=== PATIENT | female | born 1960 | race Caucasian/White ===

== ENCOUNTER 2025-04-12 10:46 | Outpatient (REF) | payer OTHER, MEDICAID, SELFPAY ==
--- NOTE | ~2025-04-12 | XR_ITS ---
EXAMINATION: XR CERVICAL SPINE CLINICAL INFORMATION: G95.9 - Disease of spinal cord, unspecified COMPARISON: None available. TECHNIQUE: AP, and lateral: Flexion, neutral, and extension view x-rays of the cervical spine. FINDINGS: Intraplate screws fuse C3-C4-C5. There is mature interbody body bone graft bridging between the vertebral bodies. There is prosthetic disc at C6-7 with mild subsidence into the C6 and minimal anterior C7. There is a large anterior osteophyte at C5-6. With flexion and extension there is limited mobility and no evidence of instability. XR/XR cervical spine 4V IMPRESSION: ACDF C3-C5. Prosthetic disc C5-6. No sign of instability. Electronically signed by: Josiah Rosen MD 04/12/2025 01:01 PM EDT
== END 2025-04-12 10:47 | disposition home or self-care (01) ==
LOC: HO.HOSX 10:46
PROVIDERS: Visit Provider Physician Assistant
DX: G95.9 Disease of spinal cord, unspecified (principal); M54.2 Cervicalgia; R20.2 Paresthesia of skin; R20.0 Anesthesia of skin; Z96.698 Presence of other orthopedic joint implants
CPT/HCPCS: 72050

== ENCOUNTER 2025-04-12 10:46 | Outpatient (AMB) | payer OTHER, MEDICAID, SELFPAY ==
--- NOTE | 2025-04-12 11:00 | A.SPINEOV_ITS ---
Intake Visit Reasons: Neck pain, numbness and tingling Intake Note: Ms. Cordova is here today c/o neck pain, numbness and tingling. Graduate Assistant Athletic Trainer Required: No Assessment & Plan Assessment & Plan (1) Cervical myelopathy: Code(s): G95.9 - Disease of spinal cord, unspecified Category: Medical Plan Dear ULI Rosales, Thank you for referring Paula to our office today. She is a pleasant 64-year-old female who comes in today for evaluation of worsening neck and arm pain. She reports a pertinent past medical history of 2 spine surgeries (C3-5 ACDF, C6-7 artificial disc) completed by Dr. Jean. He has since retired, therefore the patient is seeking to establish care with our clinic. She reports that she recovered very well from both of her surgeries, and had complete pain relief within a few months. After her last surgery done in 2018 (artificial disc) she states that she was pain-free until about a year ago. Without any known inciting incident she began experiencing low-grade neck pain and shooting pains into her bilateral upper extremities, right worse than left. This has gradually worsened as the year has progressed, and is now significantly affecting her daily life. She is unable to sleep at night for more than about 4 hours in total due to the pain. She wakes up almost hourly in pain overnight. She feels that her hands are weak and not able to articulate like they could in the past. She is no longer able to open jars, or button buttons. She reports she occasionally has dropped things around her home. She feels her handwriting has declined in is much more difficult for her to write now. When describing the shooting pain down her upper extremities she states that it starts in her posterior neck and shoots down the volar surface of her forearm into the index finger on both sides. This is much worse on the right-hand side. She also reports intermittent numbness/tingling of the bilateral hands. She denies any issues with balance, and also denies any issues with bowel/bladder control. She has been attempting to utilize [id number]-[id number] ibuprofen alongside prescribed gabapentin, diclofenac tablets, and cyclobenzaprine to help mitigate her symptoms. In addition to this, she recently completed a course of physical therapy in January. PMH: Hypothyroid is on, hyperlipidemia, iron deficiency, major depression, insomnia, migraine headaches, allergic rhinitis, asthma, GERD, eczema, rheumatoid arthritis, history of total hysterectomy in December 2024, rheumatoid a rthritis and fibromylagia followed by Rheumatology Dr. Leonardo. Hx C3-5 ACDF and C6-7 Mobi-C artifical disc. Social hx: The patient does not smoke, denies substance use. Medications: Albuterol, Fioricet, cortifoam, cyclobenzaprine, diclofenac sodium tablets, estrogen patches, VITAMIN-D, ESCITALOPRAM, OMEPRAZOLE, FERROUS SULFATE, FLOVENT, FLUTICASONE, GABAPENTIN, IBUPROFEN, LEVOTHYROXINE, LORATADINE, ONDANSETRON, RESTASIS, TRAZODONE, TRIAMCINOLONE CREAM, TRULANCE. Vitamin C. Allergies: Biotin, Morphine. Physical exam: The patient has about 4/5 strength in her bilateral upper extremities. Her hand oil rig roughneck is notably weaker than other muscle groups when testing her upper extremities. Her right hand side is slightly weaker than the left overall, most notable with biceps/triceps testing. She has full 5/5 strength in her bilateral lower extremities, including proximal muscle groups. She ambulates well without an antalgic or spastic gait. She has no significant sensational deficits to light touch on examination. Her reflexes are 2+ intact diffusely. (+) Lhermitte's, (-) Barth's, (-) Babinski's, (-) clonus, (-) bilateral straight leg raise, (-) Tinel's at wrist bilaterally. Imaging review: MRI of the cervical spine completed at [facility] shows evidence of C3-5 ACDF, and C6-7 artificial disc. There is no fusion construct at C5-6. At C6-7 there is moderate to severe central canal stenosis despite fusion construct. There is also moderate central canal and bilateral foraminal stenosis at C7-T1. Impression: Paula is a pleasant 64-year-old female who comes in today for evaluation of neck pain and shooting pains into her bilateral upper extremities, right hand worse than left. She denies any known inciting incident for the pain, but does report a pertinent past medical history of C3-5 ACDF and C6-7 total disc arthroplasty. Her surgeon is no longer in practice, therefore she comes to our clinic today for evaluation of this recurrent pain. After further discussion regarding her symptoms it seems she is beginning to decline neurologically as well. She is no longer able to write properly and feels she struggles to use a pen. She is unable to engage full strength to open a jar. She finds herself dropping things throughout the day. These are all concerning symptoms for continued cervical cord compression. In regards to her MRI, the tuscarora disc segment at C5-6 does not appear to be the culprit of her pain/ myelopathy. It is possible that her symptoms are arising from the continued compression seen behind the artificial disc construct at C6-7. There is also quite a bit of compression seen at C7-T1, however if this segment were symptomatic I would expect her distribution of pain to be different. I would like to send the patient for a set of dynamic cervical spine x-rays to evaluate for any worsening instability with movement, as the radiology report did mention an anterolithesis at C6-7. I will review her MRI / X-rays with the attending neurosurgeon Dr. Arriaga and update the patient thereafter. It is possible she may need additional imaging (EMG to r/o carpal tunnel and evaluate for specific nerve compression, CT to evaluate for osteophyte growth / surgical hardware), but I believe we should hold off on further diagnostic imaging testing before discussing this case with Dr. Arriaga. Thank you for allowing us to care for your patient. The total time spent with this visit with this patient was 45 minutes reviewing history, physical exam, MRI imaging review, and implementation of treatment plan or further diagnostic testing Newton Arriaga MD,PhD [facility] Orders: Orders XR cervical spine 4V Today G95.9 - Disease of spinal cord, unspecified Coding Level of Care Code New Pt Level 4 (91352) Diagnoses Cervical myelopathy G95.9
== END 2025-04-12 11:27 | disposition home or self-care (01) ==
LOC: HO.HNS 10:47
PROVIDERS: PCP Nurse Practitioner; Referring Provider Nurse Practitioner; Visit Provider Physician Assistant
DX: G95.9 Disease of spinal cord, unspecified (principal)
CPT/HCPCS: 99204

== ENCOUNTER → 2025-04-12 11:31 | Outpatient (BNV) | payer OTHER, MEDICAID, SELFPAY | PROVIDERS: Visit Provider Radiology Diagnostic Radiology | DX: M50.221 Other cervical disc displacement at C4-C5 level (principal) | CPT/HCPCS: 72050 ==

== ENCOUNTER 2025-06-04 14:07 | Outpatient (REF) | payer OTHER, MEDICAID, SELFPAY ==
--- NOTE | 2025-06-04 14:09 | EMG_ITS ---
Chief complaint: Right-sided arm pain with numbness. Chronic neck pain. History of 2 cervical surgeries 2018 and 2011. History of right CTR 2019. Reason for referral: Evaluate for Carpal Tunnel Syndrome Referred by: Newton RAVI Procedure done: Bilateral upper extremities NCS/EMG Precautions and/or limitations: None The limb temperature was monitored continuously and remained between 32-36 degrees C during the performance of the NCS. Nerve Conduction Studies Anti Sensory Summary Table ?Stim Site NR Onset (ms) Norm Onset (ms) Peak (ms) Norm Peak (ms) O-P Amp (?V) Norm O-P Amp Site1 Site2 Delta-0 (ms) Dist (cm) Paul (m/s) Norm Paul (m/s) Left Median Anti Sensory (2nd Digit) Wrist ? 2.9 3.8 <3.6 28.4 >10 Wrist 2nd Digit 2.9 14.0 48 Right Median Anti Sensory (2nd Digit) Wrist ? 2.6 3.6 <3.6 22.2 >10 Wrist 2nd Digit 2.6 14.0 54 Right Radial Anti Sensory (Thumb) Forearm ? 1.7 2.3 <3.1 39.3 Forearm Thumb 1.7 0.0 Left Ulnar Anti Sensory (5th Digit) Wrist ? 2.5 3.3 <3.7 27.4 >15.0 Wrist 5th Digit 2.5 14.0 56 Right Ulnar Anti Sensory (5th Digit) Wrist ? 2.5 3.3 <3.7 31.1 >15.0 Wrist 5th Digit 2.5 14.0 56 Motor Summary Table ?Stim Site NR Onset (ms) Norm Onset (ms) O-P Amp (mV) Norm O-P Amp iAmp (mV) Amp (1st) (%) Site1 Site2 Delta-0 (ms) Dist (cm) Paul (m/s) Norm Paul (m/s) Left Median Motor (Abd Poll Brev) Wrist ? 4.1 <3.9 6.6 >4.5 8.5 100.0 Elbow Wrist 3.5 18.5 53 >45 Elbow ? 7.6 6.1 7.6 92.4 Right Median Motor (Abd Poll Brev) Wrist ? 3.6 <3.9 8.5 >4.5 10.5 100.0 Elbow Wrist 3.7 20.0 54 >45 Elbow ? 7.3 7.5 9.4 88.2 Left Ulnar Motor (Abd Dig Minimi) Wrist ? 3.0 <3.0 9.0 >5 10.8 100.0 B Elbow Wrist 2.7 15.0 56 >45 B Elbow ? 5.7 8.6 10.5 95.6 A Elbow B Elbow 1.6 10.0 63 >45 A Elbow ? 7.3 8.3 10.2 92.2 Right Ulnar Motor (Abd Dig Minimi) Wrist ? 3.0 <3.0 11.3 >5 13.6 100.0 B Elbow Wrist 3.2 16.0 50 >45 B Elbow ? 6.2 10.3 12.8 91.2 A Elbow B Elbow 1.4 10.0 71 >45 A Elbow ? 7.6 10.0 12.9 88.5 EMG ?Side Muscle Nerve Root Ins Act Fibs Psw Amp Dur Poly Recrt Int Pat Comment Right Trapezius SpinalAcc CN XI, C3-4 Nml Nml Nml Nml Nml 0 Nml Complete Right 1stDorInt Ulnar C8-T1 Nml Nml Nml Nml Nml 0 Nml Complete Right FlexCarRad Median C6-7 Nml Nml Nml Nml Nml 0 Nml Complete Right Biceps Musculocut C5-6 Nml Nml Nml Nml Nml 0 Nml Complete Right Triceps Radial C6-7-8 Nml Nml Nml Nml Nml 0 Nml Complete Right Deltoid Axillary C5-6 Nml Nml Nml Nml Nml 0 Nml Complete Left 1stDorInt Ulnar C8-T1 Nml Nml Nml Nml Nml 0 Nml Complete Left FlexCarRad Median C6-7 Nml Nml Nml Nml Nml 0 Nml Complete Left Biceps Musculocut C5-6 Nml Nml Nml Nml Nml 0 Nml Complete Left Triceps Radial C6-7-8 Nml Nml Nml Nml Nml 0 Nml Complete Left Deltoid Axillary C5-6 Nml Nml Nml Nml Nml 0 Nml Complete Left Trapezius SpinalAcc CN XI, C3-4 Nml Nml Nml Nml Nml 0 Nml Complete FINDINGS: Left median motor nerve showed prolonged distal latency, normal amplitude and normal conduction velocity. Left median sensory nerve showed prolonged peak latency. All other nerves tested were within normal. Concentric needle EMG was performed in selected muscles of the bilateral upper extremities including trapezius. Study did not reveal signs of electric abnormalities as shown in the table above. IMPRESSION: 1. This is an abnormal study. 2. There is electrodiagnostic evidence for left moderate-severe median neuropathy at the wrist, consistent with carpal tunnel syndrome. 3. There is no electrodiagnostic evidence for ulnar neuropathy, brachial plexopathy, or cervical radiculopathy. 4. There is no evidence of right Carpal Tunnel Syndrome, status post CTR 2019. Thank you for your kind referral. Edie Mendosa MD, GIANA Board Certified, [place] Board of Physical Medicine and Rehabilitation (ABPMR) Board Certified, [place] Board of Electrodiagnostic Medicine (ABEM) CODIN 43053 x 2 27071 x 2 MTDD
--- OUTSIDE RECORDS SUMMARY | 2025-06-04 14:10 | XMS_ITS | Encounter Summary ---
Author Organization [facility] Address [address] [place] [address] Phone Care Team Providers Care Supervisor Housecleaner Name Role Phone Julian Cooper MD Unavailable [phone] Rola Lyons MD Unavailable [phone] Abdon Schultz DO Unavailable [phone] Julian Cooper MD Primary Care Provider [phone] Destiny Gonzalez MD Primary Care Provid er Unknown, Unknown Primary Care Provider Zunilda Means Primary Care Prov ider Ca Rosales NP Primary Care Provider [phone] Encounter Details Date Type Department Care Team (Late st Contact Info) Description 11/29/2020 Ancillary Orders [facility],Outside Imaging [address] [place], [place] [id number] System, Provider Not In, [facility] [address] [address] Social History Tobacco Use Types Packs/Day Years Used Date Smoking Tobacco: Never Smokeless Tobacco: Never Alcohol Use Standard Drinks/Week Comments No 0 (1 standard drink = 0.6 oz pur e alcohol) Comments No Sex and Gender Information Value Date Recorded Sex Assigned at Female 08/04/2023 8:40 PM EDT Legal Sex Female 9:46 PM EDT Gender Identity Female 08/04/2023 8:40 PM EDT Sexual Orientation Straight 08/04/2023 8: 40 PM EDT documented as of this encounter Plan of Treatment Upcoming Encounters Date Type Department Care Team (Late st Contact Info) Description 09/13/2025 10:30 AM EST Office Visit [facility] Rheumatology [address] [place] [address] Rola Lyons MD [address] [place] [address], [address] [place] [address] [email or web address] documented as of this encounter Results * Mammogram Outside (No Interpretation) (11/17/2020 12:00 AM EST) Narrative SYSTEMGENERATED, DOCUMENTATION - 11/29/2020 2:25 PM EST This study is for PACS storage only and not for interpretation. us Provider Not In System PhD IMG OUTSIDE IMAGING W /OUT INTERPRETATION Final Result * Mammogram Outside (No Interpretation) (05/29/2019 12:00 AM EDT) Narrative SYSTEMGENERATED, DOCUMENTATION - 11/29/2020 2:24 PM EST This study is for PACS storage only and not for interpretation. us Provider Not In System PhD IMG OUTSIDE IMAGING W /OUT INTERPRETATION Final Result * Mammogram Outside (No Interpretation) (04/29/2018 12:00 AM EDT) Narrative SYSTEMGENERATED, DOCUMENTATION - 11/29/2020 2:18 PM EST This study is for PACS storage only and not for interpretation. us Provider Not In System PhD IMG OUTSIDE IMAGING W /OUT INTERPRETATION Final Result * Mammogram Outside (No Interpretation) (02/06/2017 12:00 AM EDT) Narrative SYSTEMGENERATED, DOCUMENTATION - 11/29/2020 2:24 PM EST This study is for PACS storage only and not for interpretation. us Provider Not In System PhD IMG OUTSIDE IMAGING W /OUT INTERPRETATION Final Result * Mammogram Outside (No Interpretation) (12/14/2015 12:00 AM EST) Narrative SYSTEMGENERATED, DOCUMENTATION - 11/29/2020 2:23 PM EST This study is for PACS storage only and not for interpretation. us Provider Not In System PhD IMG OUTSIDE IMAGING W /OUT INTERPRETATION Final Result documented in this encounter Visit Diagnoses Not on filedocumented in this encounter Care Teams Supervisor Housecleaner Relationship Specialty Start Date End Date Julian Cooper MD [address] [place] [address] [email or web address] PCP - General Family Medicine 11/29/20 05/07/22 Destiny Gonzalez MD [address] [place] [address] [email or web address] PCP - General Family Medicine 05/08/22 08/09/22 Unknown, Unknown, PCP - General 10/29/22 12/04/22 Zunilda Rojas PA jerald PCP - General Physician Wood Gouger 12/05/22 10/22/24 Ca Rosales NP [address] [place] [id number] PCP - General Nurse Practitioner 10/23/24 Julian Cooper MD [address] [place] [address] [email or web address] Historical LMR Provider 07/28/17 2 Rola Lyons MD [address] [place] [address], [address] [place] [address] [email or web address] Historical LMR Provider 07/28/17 Abdon Scuhltz DO [address] [place] [address] Orthopedics & Sports Medicine, [facility] [place] [address] Historical LMR Provider 07/28/17 10/14/21 documented as of this encounter Additional Source Comments The information contained in this document represents components of the legal health record. It is not the complete legal health record.[facility]
--- OUTSIDE RECORDS SUMMARY | 2025-06-04 14:10 | XMS_ITS | Encounter Summary ---
Author Organization [facility] Address [address] [place] [address] Phone Care Team Providers Care Sap Bw Consultant Name Role Phone Rola Lyons MD Unavailable [phone] Zunilda Rojas Primary Care Prov ider Ca Rosales NP Primary Care Provider [phone] Encounter Details Date Type Department Care Team (Late st Contact Info) Description 07/18/2023 Ancillary Orders [address] [id number] Milagros Yuen MD [address] [place] [address] Orthopedics & Sports Medicine, [place], [place] [phone] [email or web address] Left hip pain Social History Tobacco Use Types Packs/Day Years Used Date Smoking Tobacco: Never Smokeless Tobacco: Never Alcohol Use Standard Drinks/Week Comments No 0 (1 standard drink = 0.6 oz pur e alcohol) Child or Family Care Answer Date Record ed Do you have problems with on e of the following making it difficult for you to work, study, or receive health care? No 05/08/2022 Education Answer Date Recorded Are you interested in help w ith more adult education (for example, completing high school, GED, job training, learning the [place] language, technical skills, or developing parenting skills)? No 05/08/2022 Food Answer Date Recorded Within the past 6 months we worried whether our food would run out before we got money to buy more. Never True 05/08/2022 Within the past 6 months the food we bought just didn't last and we didn't have enough money to get more. Never True Residential Stability Answer Date Recor ded What is your housing situation today? I have ricki mendoza 05/08/2022 How many times have you move d in the past 12 months? Zero (I did not move) 05/08/2022 Paying for Meds Answer Date Recorded Do you have trouble paying for medicines? No 05/08/2022 Paying Utility Bills Answer Date Record ed Do you have trouble paying your heating or elect ricity bill? No 05/08/2022 Transportation Answer Date Recorded Has the lack of transportati on kept you from medical appointments or from getting medications? No 05/08/2022 Unemployment Answer Date Recorded Are you currently unemployed or working on a part-time or temporary basis, and looking for work? No 05/08/2022 Digital Access Answer Date Recorded No 02/26/2023 No 02/26/2023 Reliable internet access at home? Not on file 02/26/2023 Device with a working camera? Not on file Comments No Sex and Gender Information Value [...] Description 09/13/2025 10:30 AM EST Office Visit [facility] Rheumatology [address] [place] [address] Rola Lyons MD [address] [place] [address] Pending Results Name Type Priority Associated Diagnoses Date /Time FL Guidance Needle Placement Non-Spine Imaging Routine Left hip pain 07/23/2023 11:32 AM EDT Scheduled Orders Name Type Priority Associated Diagnoses Orde r Schedule FL Guidance Needle Placement Non-Spine Imaging Routine Left hip pain 1 Occurrences starting 07/18/2023 until 10/18/2023 documented as of this encounter Visit Diagnoses Diagnosis Left hip pain Pain in joint, pelvic region and thigh documented in this encounter Additional Health Concerns Assessment Noted Time PHQ-2 Depression Total Score: 0 05/08/20 8:17 AM EDT documented as of this encounter Care Teams Sap Bw Consultant Relationship Specialty Start Date End Date Zunilda Rojas PA [address] [place] [address] jerald PCP - General Physician Correspondence Specialist 12/05/22 10/22/24 Ca Rosales NP [address] [place] [address] PCP - General Nurse Practitioner 10/23/24 Rola Lyons MD [address] [place] [address] [email or web address] Historical LMR Provider 07/28/17 documented as of this encounter Additional Source Comments The information contained in this document represents components of the legal health record. It is not the complete legal health record.[facility]
--- OUTSIDE RECORDS SUMMARY | 2025-06-04 14:10 | XMS_ITS | Encounter Summary ---
Author Organization [facility] Address [address] [place] [address] Phone Care Team Providers Care Cook Helper Dessert Name Role Phone Rola Lyons MD Unavailable [phone] Zunilda Rojas Primary Care Prov ider Ca Rosales NP Primary Care Provider [phone] Encounter Details Date Type Department Care Team (Late st Contact Info) Description 07/18/2023 Ancillary Orders [facility] Orthopedics & Sports Medicine [address] [place] [address] Milagros Yuen MD [address] [place] [address] Orthopedics & Sports Medicine, [facility] [place] [address] Social History Tobacco Use Types Packs/Day Years [...] high school, GED, job training, learning the Danish language, technical skills, or developing parenting skills)? [...] 09/13/2025 10:30 AM EST Office Visit [facility] Rheumatology [address] [place] [address] KlRola Schwab MD [address] [place] [address], [address] [address] [email or web address] documented as of this encounter Visit Diagnoses Not on filedocumented in this encounter Additional Health Concerns Assessment Noted Time PHQ-2 Depression Total Score: 0 05/08/20 22 8:17 AM EDT documented as of this encounter Care Teams Cook Helper Dessert Relationship Specialty Start Date End Date Zunilda Rojas PA [address] [place] [address], [address] [address] jerald PCP - General Physician Can Crimper 12/05/22 10/22/24 Ca Rosales NP [address] [place] [id number] PCP - General Nurse Practitioner 10/23/24 Rola Lyons MD [address] [place] [address], [address] [address] [email or web address] Historical LMR Provider 07/28/17 documented as of this encounter Additional Source Comments The information contained in this document represents components of the legal health record. It is not the complete legal health record.[facility]
--- OUTSIDE RECORDS SUMMARY | 2025-06-04 14:10 | XMS_ITS | Encounter Summary ---
Author Organization [facility] Address [address] [place] [address] Phone Care Team Providers Care Tower Air Traffic Control Specialist Name Role Phone Julian Cooper MD Unavailable [phone] Rola Lyons MD Unavailable [phone] Abdon Schultz DO Unavailable [phone] Julian Cooper MD Primary Care Provider [phone] Destiny Gonzalez MD Primary Care Provid er Unknown, Unknown Primary Care Provider Zunilda Means Primary Care Prov ider Ca Rosales NP Primary Care Provider [phone] Encounter Details Date Type Department Care Team (Late st Contact Info) Description 11/29/2020 Ancillary Orders [facility] at [address] [address] Zunilda Rojas PA [address] [place] [address] samanta Bilateral breast lump Social History Tobacco Use Types Packs/Day Years [...] Description 09/13/2025 10:30 AM EST Office Visit [facility] Rheumatology [address] [place] [address] Rola Lyons MD [address] [place] [address], [address] [place] [address] [email or web address] documented as of this encounter Results * BI US BREAST LIMITED (BILATERAL) (12/12/2020 1:43 PM EST) Anatomical Region Laterality Modality Breast Left, Breast Right, Breast Bilateral Bila teral Ultrasound 12/12/2020 2:11 PM EST Impressions 12/12/2020 2:13 PM EST No imaging findings suspicious for malignancy. Clinical follow-up recommended. Bilateral screening mammography in one year recommended. BI-RADS CATEGORY 1 - NEGATIVE Narrative 12/12/2020 2:13 PM EST HISTORY: Patient presents with palpable lump in the right breast in 2 palpable lumps in the 8:00 position of the left breast. COMPARISON: Outside screening mammogram and report 11/17/2020. FINDINGS: Directed scanning performed of the right and left breasts. 4:00 position right breast in region of palpable lump: No sonographic abnormalities. 8:00 position of left breast in region of palpable lumps (6 cm deep to the nipple and 2 cm deep to the nipple): No sonographic abnormalities. Procedure Note Ernesto Malave MD - 12/12/2020 HISTORY: Patient presents with palpable lump in the right breast in 2palpable lumps in the 8:00 position of the left breast. COMPARISON: Outside screening mammogram and report 11/17/2020. FINDINGS: Directed scanning performed of the right and left breasts. 4:00 position right breast in region of palpable lump: No sonographicabnormalities. 8:00 position of left breast in region of palpable lumps (6 cm deep to thenipple and 2 cm deep to the nipple): No sonographic abnormalities. IMPRESSION: No imaging findings suspicious for malignancy. Clinical follow-uprecommended. Bilateral screening mammography in one year recommended. BI-RADS CATEGORY 1 - NEGATIVE us Zunilda RAVI IMG US BREAST Fi nal Result documented in this encounter Visit Diagnoses Diagnosis Bilateral breast lump Bilateral breast lump documented in this encounter Care Teams Tower Air Traffic Control Specialist Relationship Specialty Start Date End Date Julian Cooper MD [address] [place] [address] [email or web address] PCP - General Family Medicine 11/29/20 05/07/22 Destiny Gonzalez MD [address] [place] [address] [email or web address] PCP - General Family Medicine 05/08/22 08/09/22 Unknown, Unknown, PCP - General 10/29/22 12/04/22 Zunilda Rojas PA jerald PCP - General Physician Church Official 12/05/22 10/22/24 Ca Rosales NP [address] [place] [address] PCP - General Nurse Practitioner 10/23/24 Julian Cooper MD [address] [place] [address] [email or web address] Historical LMR Provider 07/28/17 2 Rola Lyons MD [address] [place] [address], [address] [place] [address] Historical LMR Provider 07/28/17 Abdon Schultz DO [address] [place] [address] Orthopedics & Sports Medicine, [facility] [place] [address] Historical LMR Provider 07/28/17 10/14/21 documented as of this encounter Additional Source Comments The information contained in this document represents components of the legal health record. It is not the complete legal health record.[facility]
--- OUTSIDE RECORDS SUMMARY | 2025-06-04 14:10 | XMS_ITS | Encounter Summary ---
Author Organization [facility] Address [address] [place] [address] Phone Care Team Providers Care Stem Threshing Machine Operator Name Role Phone Julian Cooper MD Primary Care Provider [phone] Julian Cooper MD Unavailable [phone] Rola Lyons MD Unavailable Abdon Schultz DO Unavailable [phone] Julian Cooper MD Primary Care Provider [phone] Destiny Gonzalez MD Primary Care Provid er Unknown, Unknown Primary Care Provider Zunilda Means Primary Care Prov ider Ca Rosales NP Primary Care Provider [phone] Encounter Details Date Type Department Care Team (Late st Contact Info) Description 02/26/2018 Procedure Pass [facility] Endoscopy Admitting Dept Virtual Department [address] [place] [address] Social History Tobacco Use Types Packs/Day Years Used Date Smoking Tobacco: Never Smokeless Tobacco: Never Alcohol Use Standard Drinks/Week Comments No 0 (1 standard drink = 0.6 oz pur e alcohol) Comments Unknown Sex and Gender Information Value Date Recorded Sex Assigned at Female 08/04/2023 8:40 PM EDT Legal Sex Female 9:46 PM EDT Gender Identity Female 08/04/2023 8:40 PM EDT Sexual Orientation Straight 08/04/2023 8: 40 PM EDT documented as of this encounter Plan of Treatment Upcoming Encounters Date Type Department Care Team (Late st Contact Info) Description 09/13/2025 10:30 AM EST Office Visit [facility] Rheumatology [address] [place] [address] Rola Lyons MD 22 [facility], [address] [place] [address] [email or web address] documented as of this encounter Visit Diagnoses Not on filedocumented in this encounter Care Teams Stem Threshing Machine Operator Relationship Specialty Start Date End Date Julian Cooper MD [address] [place] [address] [email or web address] PCP - General 07/25/17 11/28/20 Julian Cooper MD [address] [place] [address] [email or web address] PCP - General Family Medicine 11/29/20 05/07/22 Destiny Gonzalez MD 22 [facility] [address] [place] [address] [email or web address] PCP - General Family Medicine 05/08/22 08/09/22 Unknown, Neena, PCP - General 10/29/22 12/04/22 Zunilda Rojas PA jerald PCP - General Physician Chip Crusher Operator 12/05/22 10/22/24 Ca Rosales NP [address] [place] [address] PCP - General Nurse Practitioner 10/23/24 Julian Cooper MD [address] [place] [address] [email or web address] Historical LMR Provider 07/28/17 2 Rola Lyons MD [address] [place] [address], [address] [place] [address] Historical LMR Provider 07/28/17 Abdon Schultz DO [address] [place] [address] Orthopedics & Sports Medicine, [place] [address] Historical LMR Provider 07/28/17 10/14/21 documented as of this encounter Additional Source Comments The information contained in this document represents components of the legal health record. It is not the complete legal health record.[facility]
--- OUTSIDE RECORDS SUMMARY | 2025-06-04 14:10 | XMS_ITS | Encounter Summary ---
Author Organization [employer] [facility] Address [address] [place] [address] Phone Care Team Providers Care Convenience Store Clerk Name Role Phone Rola Lyons MD Unavailable [phone] Zunilda Rojas Primary Care Prov ider Ca Rosales NP Primary Care Provider [phone] Encounter Details Date Type Department Care Team (Late st Contact Info) Description 08/05/2023 Procedure Pass [facility], Ct Scan - [facility] [address] [place] [address] Social History Tobacco Use Types Packs/Day Years [...] high school, GED, job training, learning the [place] Sor[place] language, technical skills, or developing parenting skills)? [...] your housing situation today? I have ricki sing 05/08/2022 How many times have you move [...] PM EDT documented as of this encounter Functional Status * Calculated C-SSRS Risk Score (Lifetime/Recent) Answer Date of Assessment Author No Risk Indicated 08/05/2023 1:02 AM Ronit Blake, SIDDHARTHA * [place] Suicide Severity Rating Scale (Screener/Recent Self-Report) Question Answer Date of Assessment Author 1. Wish to be (Past 1 Month) No 023 1:02 AM Ronit Blake, RN 2. Non-Specific Active Suici fawad Thoughts (Past 1 Month) No 08/05/2023 1:02 AM EDT Ronit Sandoval , RN 6. Suicidal Behavior (Lifetime) No 3 1:02 AM EDT Ronit Sandoval RN documented as of this encounter Plan of Treatment Upcoming Encounters Date Type Department Care Team (Late st Contact Info) Description 09/13/2025 10:30 AM EST Office Visit [facility] Rheumatology [address] [place] [address] Rola Lyons MD [address] [place] [address] [email or web address] documented as of this encounter Visit Diagnoses Not on filedocumented in this encounter Additional Health Concerns Assessment Noted Time PHQ-2 Depression Total Score: 0 05/08/20 22 8:17 AM EDT documented as of this encounter Care Teams Convenience Store Clerk Relationship Specialty Start Date End Date Zunilda Rojas PA [address] [place] [address] jerald PCP - General Physician Power Shear Operator 12/05/22 10/22/24 Ca Rosales NP [address] [place] [address] PCP - General Nurse Practitioner 10/23/24 Rola Lyons MD [address] [place] [address] Historical LMR Provider 07/28/17 documented as of this encounter Additional Source Comments The information contained in this document represents components of the legal health record. It is not the complete legal health record.[facility]
--- OUTSIDE RECORDS SUMMARY | 2025-06-04 14:10 | XMS_ITS | Encounter Summary ---
Author Organization [facility] Address [address] [place] [address] Phone Care Team Providers Care Resourcing Advisor Name Role Phone Rola Lyons MD Unavailable [phone] Zunilda Rojas Primary Care Prov ider Ca Rosales NP Primary Care Provider [phone] Reason for Referral * Outpatient Procedure - Closed Specialty Diagnoses / Procedures Referred By Carlton tenorio Referred To Contact Radiology Diagnoses Constipation, unspecified constipation type Epigastric abdominal pain LUQ abdominal pain Nausea Procedures NM Gastric Emptying Cary Johnson PA Phone: tel: fax: [email or web address] Referral ID Status Reason Start Date Expiration Date Visits Re quested Visits Authorized [id number] Closed 08/13/2023 08/12/2024 1 1 Encounter Details Date Type Department Care Team (Late st Contact Info) Description 08/13/2023 Transcribe Orders Virtual Department [address] [place] [address] Cary Johnson PA [address] [place] [address] [email or web address] [employer] Constipation, unspecified constipation type (Primary Dx); Epigastric abdominal pain; LUQ abdominal pain; Nausea Social History Tobacco Use Types Packs/Day Years [...] high school, GED, job training, learning the Macedonian language, technical skills, or developing parenting skills)? [...] 09/13/2025 10:30 AM EST Office Visit [facility] Rheumatology [address] [place] [address] Rola Lyons MD 22 [facility], [address] [place] [address] [email or web address] documented as of this encounter Results * NM GASTRIC EMPTYING SOLID PHASE (09/05/2023 12:49 PM EST) Anatomical Region Laterality Modality Abdomen, Pelvis Nuclear Medicine 09/05/2023 2:43 PM EST Impressions 09/05/2023 2:44 PM EST Gastric emptying study within normal limits. Narrative 09/05/2023 2:44 PM EST NM GASTRIC EMPTYING SOLID PHASE Radionuclide gastric emptying scan: COMPARISON: CT abdomen and pelvis 08/05/2023 TECHNIQUE: A dose of 1.0 mCi technetium 99m sulphur colloid was given orally mixed with a standard meal. Intermittent upright imaging of the abdomen was performed immediately, and at 1 and 2 hours, and at 4 hours if indicated. 100% of the standardized meal was consumed. FINDINGS: Gastric emptying was: 1 hr: 14.4% 2 hrs: 84% 4 hrs: 98.1% According to accepted international standards using this technique, median normal values for emptying are: 31% at 1 hr, 76% at 2 hrs, and 99% at 4 hours. 5th percentile values for emptying are: 10% at 1 hr, 40% at 2 hrs, and 90% at 4 hours. These values apply for ingestion of 50% or greater of the standard meal (PMID: 54882729) and approximate the normative emptying values of [employer] (PMID: [id number]). Procedure Note Karen Gupta MD - 09/05/2023 NM GASTRIC EMPTYING SOLID PHASE Radionuclide gastric emptying scan: COMPARISON: CT abdomen and pelvis 08/05/2023 TECHNIQUE: A dose of 1.0 mCi technetium 99m sulphur colloid was given orally mixedwith a standard meal. Intermittent upright imaging of the abdomen wasperformed immediately, and at 1 and 2 hours, and at 4 hours if indicated.100% of the standardized meal was consumed. FINDINGS: Gastric emptying was: 1 hr: 14.4% 2 hrs: 84% 4 hrs: 98.1% According to accepted international standards using this technique, mediannormal values for emptying are: 31% at 1 hr, 76% at 2 hrs, and 99% at 4 hours. 5th percentile values for emptying are: 10% at 1 hr, 40% at 2 hrs, and 90% at 4 hours. These values apply for ingestion of 50% or greater of the standard meal(PMID: 24298707) and approximate the normative emptying values of[employer] (PMID: [id number]). IMPRESSION: Gastric emptying study within normal limits. Cary RAVI IMG NM ABDOMEN Final Re sult documented in this encounter Visit Diagnoses Diagnosis Constipation, unspecified constipation type- Primary Epigastric abdominal pain Abdominal pain, epigastric LUQ abdominal pain Abdominal pain, left upper quadrant Nausea Nausea alone Constipation, unspecified constipation type Epigastric abdominal pain Abdominal pain, epigastric LUQ abdominal pain Abdominal pain, left upper quadrant Nausea Nausea alone documented in this encounter Additional Health Concerns Assessment Noted Time PHQ-2 Depression Total Score: 0 05/08/20 22 8:17 AM EDT documented as of this encounter Care Teams Resourcing Advisor Relationship Specialty Start Date End Date Zunilda Rojas PA 22 [facility], [address] [place] [phone] jerald PCP - General Physician Foundry Worker Apprentice 12/05/22 10/22/24 Ca Rosales NP [address] [place] [address] PCP - General Nurse Practitioner 10/23/24 Rola Lyons MD [address] [place] [address] [email or web address] Historical LMR Provider 07/28/17 documented as of this encounter Additional Source Comments The information contained in this document represents components of the legal health record. It is not the complete legal health record.[facility]
--- OUTSIDE RECORDS SUMMARY | 2025-06-04 14:10 | XMS_ITS | Encounter Summary ---
Author Organization [employer] [facility] Address [address] [place] [address] Phone Care Team Providers Care Manager Oracle Name Role Phone Rola Lyons MD Unavailable [phone] Julian Cooper MD Primary Care Provider [phone] Destiny Gonzalez MD Primary Care Provid er Unknown, Unknown Primary Care Provider Zunilda Means Primary Care Prov ider Ca Rosales NP Primary Care Provider [phone] Encounter Details Date Type Department Care Team (Late st Contact Info) Description 02/12/2022 Procedure Pass [facility]oscopy Admitting Dept Virtual Department [address] [place], [place] [phone] Social History Tobacco Use Types Packs/Day Years [...] Description 09/13/2025 10:30 AM EST Office Visit [facility] Rheumatology [address] [place] [address] Rola Lyons MD 22 [facility], [address] [place] [address] [email or web address] documented as of this encounter Visit Diagnoses Not on filedocumented in this encounter Care Teams Manager Oracle Relationship Specialty Start Date End Date Julian Cooper MD [address] [place] [address] [email or web address] PCP - General Family Medicine 11/29/20 05/07/22 Destiny Gonzalez MD 22 [facility] [address] [place] [address] [email or web address] PCP - General Family Medicine 05/08/22 08/09/22 Unknown, Unknown, PCP - General 10/29/22 12/04/22 Zunilda Rojas PA jerald PCP - General Physician Mosaic Technician 12/05/22 10/22/24 Ca Rosales NP [address] [place] [address] PCP - General Nurse Practitioner 10/23/24 Rola Lyons MD [address] [place] [address], [address] [place] [address] [email or web address] Historical LMR Provider 07/28/17 documented as of this encounter Additional Source Comments The information contained in this document represents components of the legal health record. It is not the complete legal health record.[facility]
--- OUTSIDE RECORDS SUMMARY | 2025-06-04 14:10 | XMS_ITS | Encounter Summary ---
Author Organization [email or web address] [facility] Address [address] [place] [address] Phone Care Team Providers Care Strategic Planning Specialist Name Role Phone Rola Lyons MD Unavailable [phone] Zunilda Rojas Primary Care Prov ider Ca Rosales NP Primary Care Provider [phone] Encounter Details Date Type Department Care Team (Latest Contact Info) Description 10/19/2024 Transcribe Orders [facility] [address] [place], [place] [id number] Aletha Harper PA [address] [place], [place] [phone] Constipation, unspecified constipation type (Primary Dx) Social History Tobacco Use Types Packs/Day Years [...] Answer Date Recorded Are you interested in more education? Not on liane e 05/11/2024 Are you concerned about learning? Not on file 05/11/2024 No 05/11/2024 No 05/11/2024 Food Answer Date Recorded Within the past 6 months we worried whether our food would run out before we got money to buy more. Never True 10/22/2024 Within the past 6 months the food we bought just didn't last and we didn't have enough money to get more. Never True Residential Stability Answer Date Recor ded What is your housing situation today? I have ricki sing 10/22/2024 How many times have you move d in the past 12 months? Zero (I did not move) 10/22/2024 Paying for Meds Answer Date Recorded Do you have trouble paying for medicines? No 10/22/2024 Paying Utility Bills Answer Date Record ed Do you have trouble paying your heating or elect ricity bill? No 10/22/2024 Transportation Answer Date Recorded Has the lack of transportati on kept you from medical appointments or from getting medications? No 10/22/2024 Unemployment Answer Date Recorded Are you currently unemployed or working on a part-time or temporary basis, and looking for work? No 05/08/2022 Digital Access Answer Date Recorded No 10/22/2024 Yes 10/22/2024 Do you have reliable internet access at home? Ye s 10/22/2024 Do you have a device (e.g., phone, tablet, computer) with a working camera? Yes 10/22/2024 Intimate Partner Violence Answer Date R ecorded Are you denied basic needs s uch as food, clothing, or medical care? No 10/22/2024 In the past 12 months have y ou been in a relationship with a person who hurts, threatens, or tries to control you? No 10/22/2024 Are you denied basic needs s uch as food, clothing, or medical care? No 10/22/2024 In the past 12 months have y ou been in a relationship with a person who hurts, threatens, or tries to control you? No 10/22/2024 Comments No Sex and Gender Information Value Date Recorded Sex Assigned at Female 08/04/2023 8:40 PM EDT Legal Sex Female 9:46 PM EDT Gender Identity Female 08/04/2023 8:40 PM EDT Sexual Orientation Straight 08/04/2023 8: 40 PM EDT documented as of this encounter Functional Status * Calculated C-SSRS Risk Score (Lifetime/Recent) Answer Date of Assessment Author No Risk Indicated 10/22/2024 1:35 PM Alethea Lr RN * [place] Suicide Severity Rating Scale (Screener/Recent Self-Report) Question Answer Date of Assessment Author 1. Wish to be (Past 1 Month) No 025 1:35 PM Alethea Lr RN 2. Non-Specific Active Suici fawad Thoughts (Past 1 Month) No 10/22/2024 1:35 PM Alethea Lr RN 6. Suicidal Behavior (Lifetime) No 1:35 PM Alethea Lr RN documented as of this encounter Plan of Treatment Upcoming Encounters Date Type Department Care Team (Late st Contact Info) Description 09/13/2025 10:30 AM EST Office Visit [facility] Rheumatology [address] [place] [address] Rola Lyons MD [address] [place] [address] [email or web address] documented as of this encounter Visit Diagnoses Diagnosis Constipation, unspecified constipation type- Primary documented in this encounter Additional Health Concerns Assessment Noted Time PHQ-2 Depression Total Score: 0 05/08/20 22 8:17 AM EDT documented as of this encounter Care Teams Strategic Planning Specialist Relationship Specialty Start Date End Date Zunilda Rojas PA [address] [place] [address] jerald PCP - General Physician Filter Press Operator 12/05/22 10/22/24 Ca Rosales NP [address] [place] [address] PCP - General Nurse Practitioner 10/23/24 Rola Lyons MD [address] [place] [address], [facility] [address] [place] [address] [email or web address] Historical LMR Provider 07/28/17 documented as of this encounter Additional Source Comments The information contained in this document represents components of the legal health record. It is not the complete legal health record.[facility]
--- OUTSIDE RECORDS SUMMARY | 2025-06-04 14:10 | XMS_ITS | Encounter Summary ---
Author Organization [facility] Address [address] [place] [address] Phone Care Team Providers Care Aquaculture Program Director Name Role Phone Julian Cooper MD Unavailable [phone] Rola Lyons MD Unavailable [phone] Abdon Schultz DO Unavailable [phone] Julian Cooper MD Primary Care Provider [phone] Destiny Gonzalez MD Primary Care Provid er Unknown, Unknown Primary Care Provider Zunilda Means Primary Care Prov ider Ca Rosales NP Primary Care Provider [phone] Encounter Details Date Type Department Care Team (Late st Contact Info) Description 11/29/2020 Procedure Pass [facility] - [address] [place] [address] Social History Tobacco Use Types Packs/Day Years [...] Description 09/13/2025 10:30 AM EST Office Visit [facility] Rheumatology [address] [place] [address] Rola Lyons MD [address] [facility], [address] [place] [address] [email or web address] documented as of this encounter Visit Diagnoses Not on filedocumented in this encounter Care Teams Aquaculture Program Director Relationship Specialty Start Date End Date Julian Cooper MD [address] [place] [address] [email or web address] PCP - General Family Medicine 11/29/20 05/07/22 Destiny Gonzalez MD [address] [place] [address] [place] [address] [email or web address] PCP - General Family Medicine 05/08/22 08/09/22 Unknown, Unknown, PCP - General 10/29/22 12/04/22 Zunilda oRjas PA jerald PCP - General Physician Aircraft Load Controller 12/05/22 10/22/24 Ca Rosales NP [address] [place] [address] PCP - General Nurse Practitioner 10/23/24 Julian Cooper MD [address] [place] [address] [email or web address] Historical LMR Provider 07/28/17 2 Rola Lyons MD [address] [place] [address], [address] [place] [address] Historical LMR Provider 07/28/17 Abdon Schultz DO [address] [place] [address] Orthopedics & Sports Medicine, [facility] [place] [address] Historical LMR Provider 07/28/17 10/14/21 documented as of this encounter Additional Source Comments The information contained in this document represents components of the legal health record. It is not the complete legal health record.[facility]
--- OUTSIDE RECORDS SUMMARY | 2025-06-04 14:10 | XMS_ITS | Encounter Summary ---
Author Organization [facility] Address [address] [place] [address] Phone Care Team Providers Care Suspect Artist Supervisor Name Role Phone Julian Cooper MD Primary Care Provider Julian Cooper MD Unavailable [phone] Rola Lyons MD Unavailable [phone] Abdon Schultz DO Unavailable [phone] Julian Cooper MD Primary Care Provider [phone] Destiny Gonzalez MD Primary Care Provid er Unknown, Unknown Primary Care Provider Zunilda Means Primary Care Prov ider Ca Rosales NP Primary Care Provider [phone] Encounter Details Date Type Department Care Team (Late st Contact Info) Description 01/28/2019 Ancillary Orders [facility],Outside Imaging [address] [place] [address] System, Provider Not In, PhD Partners [address] [address] Social History Tobacco Use Types Packs/Day Years [...] Description 09/13/2025 10:30 AM EST Office Visit [facility] Rheumatology [address] [place] [address] Rola Lyons MD 22 [facility], [address] [place] [address] [email or web address] documented as of this encounter Results * XR Upper Extremity Outside (No Interpretation) (12/08/2018 12:00 AM EST) Narrative SYSTEMGENERATED, DOCUMENTATION - 01/28/2019 3:25 PM EDT This study is for PACS storage only and not for interpretation. us Provider Not In System PhD IMG OUTSIDE IMAGING W /OUT INTERPRETATION Final Result documented in this encounter Visit Diagnoses Not on filedocumented in this encounter Care Teams Suspect Artist Supervisor Relationship Specialty Start Date End Date Julian Cooper MD [address] [place] [address] PCP - General 07/25/17 11/28/20 Julian Cooper MD [address] [place] [address] PCP - General Family Medicine 11/29/20 05/07/22 Destiny Gonzalez MD 22 [facility] [address] [place] [address] [email or web address] PCP - General Family Medicine 05/08/22 08/09/22 Unknown, Unknown, PCP - General 10/29/22 12/04/22 Zunilda Rojas PA jerald PCP - General Physician Senior Education Specialist 12/05/22 10/22/24 Ca Rosales NP [address] [place] [address] PCP - General Nurse Practitioner 10/23/24 Julian Cooper MD [address] [place] [address] Historical LMR Provider 07/28/17 2 Rola Lyons MD 22 [facility], [address] [place] [address] Historical LMR Provider 07/28/17 Abdon Schultz DO [address] [place] [address] Orthopedics & Sports Medicine, [facility] [place] [address] Historical LMR Provider 07/28/17 10/14/21 documented as of this encounter Additional Source Comments The information contained in this document represents components of the legal health record. It is not the complete legal health record.[facility]
--- OUTSIDE RECORDS SUMMARY | 2025-06-04 14:10 | XMS_ITS | Encounter Summary ---
Author Organization [facility] Address [address] [place] [address] Phone Care Team Providers Care Separator Operator Name Role Phone Julian Cooper MD Unavailable [phone] Rola Lyons MD Unavailable [phone] Abdon Schultz DO Unavailable [phone] Julian Cooper MD Primary Care Provider [phone] Destiny Gonzalez MD Primary Care Provid er Unknown, Unknown Primary Care Provider Zunilda Means Primary Care Prov ider Ca Rosales NP Primary Care Provider [phone] Reason for Referral * Physical Therapy (Routine) - Closed Specialty Diagnoses / Procedures Referred By Carlton tenorio Referred To Contact Physical Therapy Diagnoses Encounter for rehabilitation Zunilda Rojas PA Phone: tel: fax: mailto:latia [facility] [address] [place] [address] Phone: tel: Referral ID Status Reason Start Date Expiration Date Visits Re quested Visits Authorized [id number] Closed 05/04/2021 05/04/2022 99 99 Encounter Details Date Type Department Care Team (Latest Contact Info) Description 05/04/2021 Transcribe Orders [facility] [address] [place] [address] Zunilda Rojas PA [address] [place] [address] [email or web address] Encounter for rehabilitation (Primary Dx) Social History Tobacco Use Types [...] Description 09/13/2025 10:30 AM EST Office Visit [facility] Rheumatology [address] [place] [address] Rola Lyons MD 22 [facility], [address] [place] [address] [email or web address] documented as of this encounter Procedures Procedure Name Priority Date/Time Associated Diagnosis Comments AMB REFERRAL TO [facility] PHYSICAL THERAPY Routine 07/14/2021 12:20 PM EDT Encounter for rehabilitation documented in this encounter Results * Ambulatory referral to [facility] Physical Therapy (07/14/2021 12:20 PM EDT) Other Zunilda RAVI AMB [facility] REFERRALS Edited documented in this encounter Visit Diagnoses Diagnosis Encounter for rehabilitation- Primary Neck pain, chronic- Primary Cervical radiculopathy Brachial neuritis or radiculitis nos Chronic pain of right upper extremity Posture imbalance Neck pain, chronic- Primary Encounter for rehabilitation Cervical radiculopathy Brachial neuritis or radiculitis nos Chronic pain of right upper extremity Posture imbalance Neck pain, chronic- Primary Cervical radiculopathy Brachial neuritis or radiculitis nos Chronic pain of right upper extremity Posture imbalance Neck pain, chronic- Primary Cervical radiculopathy Brachial neuritis or radiculitis nos Chronic pain of right upper extremity Posture imbalance Neck pain, chronic- Primary Chronic pain of right upper extremity Cervical radiculopathy Brachial neuritis or radiculitis nos Posture imbalance Neck pain, chronic- Primary Chronic pain of right upper extremity Cervical radiculopathy Brachial neuritis or radiculitis nos Posture imbalance documented in this encounter Care Teams Separator Operator Relationship Specialty Start Date End Date Julian Cooper MD [address] [place] [address] [email or web address] PCP - General Family Medicine 11/29/20 05/07/22 Destiny Gonzalez MD [address] [place] [address] [email or web address] PCP - General Family Medicine 05/08/22 08/09/22 Unknown, Neena, PCP - General 10/29/22 12/04/22 Zunilda Rojas PA jerald PCP - General Physician City Treasurer 12/05/22 10/22/24 Ca Rosales NP [address] [place] [address] PCP - General Nurse Practitioner 10/23/24 Julian Cooper MD [address] [place] [address] [email or web address] Historical LMR Provider 07/28/17 2 Rola Lyons MD 22 [facility], [address] [place] [address] [email or web address] Historical LMR Provider 07/28/17 Abdon Schultz DO [address] [place] [address] Orthopedics & Sports Medicine, [facility] [place] [address] [email or web address] Historical LMR Provider 07/28/17 10/14/21 documented as of this encounter Additional Source Comments The information contained in this document represents components of the legal health record. It is not the complete legal health record.[facility]
--- OUTSIDE RECORDS SUMMARY | 2025-06-04 14:10 | XMS_ITS | Encounter Summary ---
Author Organization [facility] Address [address] [place] [address] Phone Care Team Providers Care Librarian School Name Role Phone Julian Cooper MD Primary Care Provider Julian Cooper MD Unavailable [phone] Rola Lyons MD Unavailable Abdon Schultz DO Unavailable [phone] Julian Cooper MD Primary Care Provider [phone] Destiny Gonzalez MD Primary Care Provid er Unknown, Unknown Primary Care Provider Zunilda Means Primary Care Prov ider Ca Rosales NP Primary Care Provider [phone] Encounter Details Date Type Department Care Team (Late st Contact Info) Description 01/09/2019 Procedure Pass [facility] - [address] [address] Social History Tobacco Use Types Packs/Day Years [...] Description 09/13/2025 10:30 AM EST Office Visit [facility] Rheumatology [address] [place] [address] Rola Lyons MD 22 [facility], [address] [place] [address] [email or web address] documented as of this encounter Visit Diagnoses Not on filedocumented in this encounter Care Teams Librarian School Relationship Specialty Start Date End Date Julian Cooper MD [address] [place] [address] [email or web address] PCP - General 07/25/17 11/28/20 Julian Cooper MD [address] [place] [address] [email or web address] PCP - General Family Medicine 11/29/20 05/07/22 Destiny Gonzalez MD [address] [place] [address] [place] [address] [email or web address] PCP - General Family Medicine 05/08/22 08/09/22 Unknown, MD Neena PCP - General 10/29/22 12/04/22 Zunilda Rojas PA jerald PCP - General Physician Shrimping Boat Captain 12/05/22 10/22/24 Ca Rosales NP [address] [place] [address] PCP - General Nurse Practitioner 10/23/24 Julian Cooper MD [address] [place] [address] [email or web address] Historical LMR Provider 07/28/17 2 Rola Lyons MD [address] [place] [address], [address] [place] [address] Historical LMR Provider 07/28/17 Abdon Schultz DO [address] [place] [address] Orthopedics & Sports Medicine, [facility] [place] [address] Historical LMR Provider 07/28/17 10/14/21 documented as of this encounter Additional Source Comments The information contained in this document represents components of the legal health record. It is not the complete legal health record.[facility]
--- OUTSIDE RECORDS SUMMARY | 2025-06-04 14:11 | XMS_ITS | Encounter Summary ---
Author Organization [facility] Address [address] [place] [address] Phone Care Team Providers Care Household Personal Assistant Name Role Phone Julian Cooper MD Primary Care Provider Julian Cooper MD Unavailable [phone] Rola Lyons MD Unavailable Abdon Schultz DO Unavailable [phone] Julian Cooper MD Primary Care Provider [phone] Destiny Gonzalez MD Primary Care Provid er Unknown, Unknown Primary Care Provider Zunilda Means Primary Care Prov ider Ca Rosales NP Primary Care Provider [phone] Encounter Details Date Type Department Care Team (Late st Contact Info) Description 06/25/2019 Prep for Surgery [facility] Orthopedics & Sports Medicine [address] [place] [id number] Rola Vaca MD [address] [place] [address] Orthopedics & Sports Medicine, [facility] [place] [address] [email or web address] Social History Tobacco Use Types Packs/Day Years [...] Description 09/13/2025 10:30 AM EST Office Visit [facility] Rheumatology [address] [place] [address] Rola Lyons MD 22 [facility], [address] [place] [address] [email or web address] documented as of this encounter Visit Diagnoses Not on filedocumented in this encounter Care Teams Household Personal Assistant Relationship Specialty Start Date End Date Julian Cooper MD [address] [place] [address] [email or web address] PCP - General 07/25/17 11/28/20 Julian Cooper MD [address] [place] [address] [email or web address] PCP - General Family Medicine 11/29/20 05/07/22 Destiny Gonzalez MD [address] [place] [address] [place] [address] [email or web address] PCP - General Family Medicine 05/08/22 08/09/22 Unknown, MD Neena PCP - General 10/29/22 12/04/22 Zunilda Rojas PA jerald PCP - General Physician Jailer 12/05/22 10/22/24 Ca Rosales NP [address] [place] [address] PCP - General Nurse Practitioner 10/23/24 Julian Cooper MD [address] [place] [address] [email or web address] Historical LMR Provider 07/28/17 2 Rola Lyons MD 22 [facility], [address] [place] [address] Historical LMR Provider 07/28/17 Abdon Schultz DO [address] [place] [address] Orthopedics & Sports Medicine, [facility] [place] [address] Historical LMR Provider 07/28/17 10/14/21 documented as of this encounter Additional Source Comments The information contained in this document represents components of the legal health record. It is not the complete legal health record.[facility]
--- OUTSIDE RECORDS SUMMARY | 2025-06-04 14:11 | XMS_ITS | Encounter Summary ---
Author Organization [facility] Address [address] [place] [address] Phone Care Team Providers Care Fermenter Operator Name Role Phone Rola Lyons MD Unavailable [phone] Ca Rosales NP Primary Care Provider [phone] Encounter Details Date Type Department Care Team (Late st Contact Info) Description 10/23/2024 Procedure Pass [facility] Endoscopy Admitting Dept Virtual Department [address] [place] [address] Social History Tobacco Use Types Packs/Day Years [...] Description 09/13/2025 10:30 AM EST Office Visit [facility] [place] [address] Rola Lyons MD [address] [place] [address], [address] [address] documented as of this encounter Visit Diagnoses Not on filedocumented in this encounter Additional Health Concerns Assessment Noted Time PHQ-2 Depression Total Score: 0 05/08/20 22 8:17 AM EDT documented as of this encounter Care Teams Fermenter Operator Relationship Specialty Start Date End Date Ca Rosales NP [address] [place] [address] PCP - General Nurse Practitioner 10/23/24 Rola Lyons MD [address] [place] [address], [address] [address] [email or web address] Historical LMR Provider 07/28/17 documented as of this encounter Additional Source Comments The information contained in this document represents components of the legal health record. It is not the complete legal health record.[facility]
--- OUTSIDE RECORDS SUMMARY | 2025-06-04 14:11 | XMS_ITS | Encounter Summary ---
Author Organization [facility] Address [address] [place] [address] Phone Care Team Providers Care Merchant Tailor Name Role Phone Rola Lyons MD Unavailable [phone] Ca Rosales NP Primary Care Provider [phone] Reason for Referral * MRI/CAT Scan - Closed Specialty Diagnoses / Procedures Referred By Contac t Referred To Contact Radiology Diagnoses Cervicalgia Procedures MRI Cervical Spine Ca Rosales NP [address] [place] [address] Phone: tel: fax: Referral ID Status Reason Start Date Expiration Date Visits Re quested Visits Authorized [id number] Closed 03/11/2025 03/11/2026 1 1 Encounter Details Date Type Department Care Team (Latest Contact Info) Description 03/11/2025 Transcribe Orders Virtual Department [address] [place] [address] Ca Rosales NP [address] [place] [address] Cervicalgia (Primary Dx) Social History Tobacco Use Types [...] Description 09/13/2025 10:30 AM EST Office Visit [facility] Rheumatology [address] [place] [address] Rola Lyons MD [address] [place] [address], [address] [place] [address] [email or web address] documented as of this encounter Results * MRI CERVICAL SPINE (NEURO) FOCUS WITHOUT CONTRAST (04/03/2025 2:11 PM EDT) Anatomical Region Laterality Modality C-spine Magnetic Resonan ce 04/06/2025 5:20 PM EDT Impressions 04/06/2025 5:27 PM EDT 1. Moderate to severe C6-7 and moderate C7-T1 spinal stenosis. No cord signal abnormality. 2. Probable moderate bilateral C7-T1 foraminal stenosis. Narrative 04/06/2025 5:27 PM EDT MRI CERVICAL SPINE (NEURO) FOCUS WITHOUT CONTRAST Referring clinician's provided indication for this examination in Epic: Outside Radiology Order; cervicalgia TECHNIQUE: MRI CERVICAL SPINE (NEURO) FOCUS WITHOUT CONTRAST Multi-sequence, multi-planar MRI of the cervical spine was performed without intravenous contrast. COMPARISON: XR CERVICAL SPINE 2-3 VIEWS FINDINGS: CERVICAL SPINE: Alignment and Vertebrae: Likely mild C6-7 anterolisthesis. Status post C3 C5 ACDF and C6-7 interbody spacer placement. No compression deformity. Marrow: No bone marrow replacing lesion. Discs and Endplates: Fused C3-C5 vertebral bodies. C6-7 interbody spacer. Mild C7-T1 endplate edema and disc height loss. Spinal Cord: No spinal cord compression or signal abnormality. Soft Tissue: No prevertebral edema. Findings by level: C2-C3: No spinal or foraminal stenosis. C3-C4: No spinal or foraminal stenosis. C4-C5: No spinal or foraminal stenosis. C5-C6: No spinal or foraminal stenosis. C6-C7: Moderate to severe spinal stenosis due to prominent endplate osteophytes with possible disc material. Mild left foraminal stenosis. C7-T1: Moderate spinal stenosis. Probable moderate bilateral foraminal stenosis, partially obscured due to motion and hardware artifact. Procedure Note Bea Gould MD - 04/06/2025 MRI CERVICAL SPINE (NEURO) FOCUS WITHOUT CONTRAST Referring clinician's provided indication for this examination in Epic:Outside Radiology Order; cervicalgia TECHNIQUE: MRI CERVICAL SPINE (NEURO) FOCUS WITHOUT CONTRAST Multi-sequence, multi-planar MRI of the cervical spine was performedwithout intravenous contrast. COMPARISON: XR CERVICAL SPINE 2-3 VIEWS FINDINGS: CERVICAL SPINE: Alignment and Vertebrae: Likely mild C6-7 anterolisthesis. Status post C3C5 ACDF and C6-7 interbody spacer placement. No compression deformity. Marrow: No bone marrow replacing lesion. Discs and Endplates: Fused C3-C5 vertebral bodies. C6-7 interbody spacer.Mild C7-T1 endplate edema and disc height loss. Spinal Cord: No spinal cord compression or signal abnormality. Soft Tissue: No prevertebral edema. Findings by level: C2-C3: No spinal or foraminal stenosis. C3-C4: No spinal or foraminal stenosis. C4-C5: No spinal or foraminal stenosis. C5-C6: No spinal or foraminal stenosis. C6-C7: Moderate to severe spinal stenosis due to prominent endplateosteophytes with possible disc material. Mild left foraminal stenosis. C7-T1: Moderate spinal stenosis. Probable moderate bilateral foraminalstenosis, partially obscured due to motion and hardware artifact. IMPRESSION: 1. Moderate to severe C6-7 and moderate C7-T1 spinal stenosis. No cordsignal abnormality. 2. Probable moderate bilateral C7-T1 foraminal stenosis. Ca Rosales HAND TILE MAKER IMG MR XSPECIALTY Final R esult documented in this encounter Visit Diagnoses Diagnosis Cervicalgia- Primary Cervicalgia documented in this encounter Additional Health Concerns Assessment Noted Time PHQ-2 Depression Total Score: 0 05/08/20 8:17 AM EDT documented as of this encounter Care Teams Merchant Tailor Relationship Specialty Start Date End Date Ca Rosales NP [address] [place] [address] PCP - General Nurse Practitioner 10/23/24 Rola Lyons MD [address] [place] [address], [address] [address] [email or web address] Historical LMR Provider 07/28/17 documented as of this encounter Additional Source Comments The information contained in this document represents components of the legal health record. It is not the complete legal health record.[facility]
--- OUTSIDE RECORDS SUMMARY | 2025-06-04 14:11 | XMS_ITS | Encounter Summary ---
Author Organization [facility] Address [address] [place] [address] Phone Care Team Providers Care Certified Veterinary Technician Name Role Phone Rola Lyons MD Unavailable [phone] Zunilda Rojas Primary Care Prov ider Ca Rosales NP Primary Care Provider [phone] Encounter Details Date Type Department Care Team (Late st Contact Info) Description 12/28/2022 Procedure Pass [facility] [address] [place] [address] Social History Tobacco Use Types Packs/Day Years [...] high school, GED, job training, learning the Bengali language, technical skills, or developing parenting skills)? [...] basis, and looking for work? No 05/08/2022 Comments No Sex and Gender Information Value [...] Visit [facility] Rheumatology [address] [place] [address] Rola Lyons MD [address] [facility], [address] [place] [address] documented as of this encounter Visit Diagnoses Not on filedocumented in this encounter Additional Health Concerns Assessment Noted Time PHQ-2 Depression Total Score: 0 05/08/20 8:17 AM EDT documented as of this encounter Care Teams Certified Veterinary Technician Relationship Specialty Start Date End Date Zunilda Rojas PA [address] [place] [address], [address] [address] [email or web address] PCP - General Physician Bag Mender 12/05/22 10/22/24 Ca Rosales NP [address] [place] [address] PCP - General Nurse Practitioner 10/23/24 Rola Lyons MD [address] [place] [address] [email or web address] Historical LMR Provider 07/28/17 documented as of this encounter Additional Source Comments The information contained in this document represents components of the legal health record. It is not the complete legal health record.[facility]
--- OUTSIDE RECORDS SUMMARY | 2025-06-04 14:11 | XMS_ITS | Encounter Summary ---
Author Organization [facility] Address [address] [place] [address] Phone Care Team Providers Care Wafer Fabrication Technician Name Role Phone Julian Cooper MD Primary Care Provider [phone] Julian Cooper MD Unavailable [phone] Rola Lyons MD Unavailable [phone] Abdon Schultz DO Unavailable [phone] Julian Cooper MD Primary Care Provider [phone] Destiny Gonzalez MD Primary Care Provid er Unknown, Unknown Primary Care Provider Zunilda Means Primary Care Prov ider Ca Rosales NP Primary Care Provider [phone] Encounter Details Date Type Department Care Team (Late st Contact Info) Description 07/08/2019 Procedure Pass OR Admitting Dept - Virtual Department [address] [place] [address] Social History Tobacco Use Types Packs/Day Years [...] Description 09/13/2025 10:30 AM EST Office Visit [facility] Rheumatology [address] [place] [id number] Rola Lyons MD [address], [address] [place] [address] [email or web address] documented as of this encounter Visit Diagnoses Not on filedocumented in this encounter Care Teams Wafer Fabrication Technician Relationship Specialty Start Date End Date Julian Cooper MD [address] [place] [address] [email or web address] PCP - General 07/25/17 11/28/20 Julian Cooper MD [address] [place] [address] [email or web address] PCP - General Family Medicine 11/29/20 05/07/22 Destiny Gonzalez MD [address] [facility] [address] [place] [id number] [email or web address] PCP - General Family Medicine 05/08/22 08/09/22 Unknown, Neena, PCP - General 10/29/22 12/04/22 Zunilda Rojas PA jerald PCP - General Physician Front Desk Representative 12/05/22 10/22/24 Ca Rosales NP [address] [place] [address] PCP - General Nurse Practitioner 10/23/24 Julian Cooper MD [address] [place] [address] [email or web address] Historical LMR Provider 07/28/17 2 Rola Lyons MD [address] [place] [address], [address] [place] [address] Historical LMR Provider 07/28/17 Abdon Schultz DO [address] [place] [address] Orthopedics & Sports Medicine, [facility] [place] [address] Historical LMR Provider 07/28/17 10/14/21 documented as of this encounter Additional Source Comments The information contained in this document represents components of the legal health record. It is not the complete legal health record.[facility]
--- OUTSIDE RECORDS SUMMARY | 2025-06-04 14:11 | XMS_ITS | Clinical Summary ---
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 09/17/20 18 Active butalbital-acetam inophen-caffeine (FIORICET, ESGIC) 50-325-40 mg per tablet Take 1 tablet by mouth every 6 (six) hours as needed. 2 01/07/20 19 Active diclofenac sodium (VOLTAREN) 75 MG EC tablet Take 75 mg by mouth 2 (two) times a day as needed. 10/12/19 25 Active TRULANCE 3 mg tablet Take 1 tablet by mouth every morning. 10/08/19 25 Active lidocaine 5 % ointment Apply topically as needed. 35.44 g 10/24/19 25 Active albuterol 90 mcg/actuation inhaler Inhale 2 puffs into the lungs every 4 (four) hours as needed. 05/06/20 25 Active ASCORBIC ACID WITH DAT HIPS 500 MG tablet Take 1 tablet by mouth every morning. 04/28/20 25 Active cyclobenzaprine (FLEXERIL) 10 MG tablet Take 10 mg by mouth 2 (two) times a day as needed. 04/04/20 25 Active hydrOXYzine (ATARAX) 25 MG tablet Take 25 mg by mouth nightly at bedtime as needed. 05/03/20 25 Active loratadine (CLARITIN) 10 mg tablet Take 1 tablet by mouth every morning. 04/28/20 25 Active triamcinolone acetonide 0.1 % cream Apply topically 2 (two) times a day. 04/04/20 25 Active hydroxychloroquin e (PLAQUENIL) 200 mg tabletIndications :Inflammatory polyarthritis Take 1 tablet (200 mg total) by mouth daily. 90 tablet 3 05/12/20 25 026 Active citalopram (CELEXA) 20 MG tabletIndications :anxiety with depression Take 20 mg by mouth daily. Indications: anxiousness associated with depression 025 Discontin ued(No longer taking) eszopiclone (LUNESTA) 1 MG Tab Take 1 mg by mouth daily. Take immediately before bedtime 025 Discontin ued(No longer taking) CORTIFOAM 10 % (80 mg) rectal foam Place 1 applicator rectally 2 (two) times a day. 10/20/19 25 025 Discontin ued(No longer taking) Active Problems Problem Noted Date Diagnosed Date Encounter for long-term use of non-steroidal anti-inflammatory medication 05/12/2025 Assessment & Plan (05/12/2025 11:55 AM EDT): Due to recent rectal bleeding with marked anemia I have instructed her to avoid oral nonsteroidal anti-inflammatory such as naproxen, ibuprofen, diclofenac sodium etc. Cervical spinal stenosis 05/12/2025 Assessment & Plan (05/12/2025 11:57 AM EDT): Use warm packs prior to gentle ROM exercises. Avoid sudden, jerky movements, prolonged neck flexion, extension. Follow with neurologist in neurosurgeon if symptoms do not improve/progress Anxiety 05/12/2025 Assessment & Plan (05/12/2025 11:58 AM EDT): Encouraged to work on nonpharmacologic measures such as personal psychotherapy in favor of prescription hydroxy zine that may interfere with hydroxychloroquine- the risk of developing torsade the points dysrhythmia. EKG from 2020 revealed normal QT interval. She denies any episodes of irregular heartbeats. Medial epicondylitis of right elbow 05/12/2025 Assessment & Plan (05/12/2025 11:52 AM EDT): Use warm packs versus warm shower prior to gentle, regular exercises-examples with pictures and detailed instructions printed for home use today. She declined formal PT today. Anemia 05/12/2025 Assessment & Plan (05/12/2025 11:59 AM EDT): Educated to avoid oral NSAIDs while suffering from rectal bleeding earlier this year. Continue proper iron, vitamin B12, vitamin C supplementation and get interval CBC with differential Rectal bleeding 10/22/2024 Assessment & Plan (10/23/2024 12:22 PM EST): Probable internal hemorrhoid bleeding with evacuation. Plan for Fleets now and again In AM Clears only since 9am on 10/22 GI consult in AM probable anoscopy or sigmoidoscopy , consultation pending Hemoglobin down 1 point overnight, patient did get IV fluid, continue to monitor CBC Continue Fe tablets 2 large bore IV Patient did have some stools overnight with clots, awaiting testing this afternoon Assessment & Plan (10/22/2024 11:23 PM EST): Probable internal hemorrhoid bleeding with evacuation. Plan for Fleets now and again In AM Clears only since 9am on 10/22 GI consult in AM probable anoscopy or sigmoidoscopy in AM She is [employer]hov[employer] witness and refuses transfusion Will check cbc again now and in AM, avoid extra blood draws Start Fe tablets 2 large bore IV Vitamin D deficiency, unspecified 01/08/2024 Assessment & Plan (05/12/2025 11:55 AM EDT): Serum level requested to make sure that she does not require adjustment in supplementation to keep it in optimal range. Assessment & Plan (01/08/2024 12:18 PM EDT): Serum level requested to make sure that she does not require additional supplementation to keep it in optimal range: 40-45 ng/ml. Chronic low back pain with right-sided sciatica 01/08/2024 Assessment & Plan (04/17/2024 10:26 AM EDT): Avoid bending, stooping, heavy lifting, sudden turns. Use warm pack prior to gentle stretching, ROM and core muscle strengthening exercises-examples of appropriate exercises with pictures and detailed instructions printed for home use. Apply Salonpas 2-3 times daily and follow-up with back specialist as scheduled and needed. Assessment & Plan (01/08/2024 12:20 PM EDT): Avoid bending, stooping, heavy lifting, sudden turns. Use warm pack prior to gentle stretching, ROM and core muscle strengthening exercises-examples of appropriate exercises with pictures and detailed instructions printed for home use. Apply Salonpas 2-3 times daily and follow-up with back specialist as scheduled and needed. Pain of right hip 05/15/2023 Plantar fasciitis of left foot 05/15/2023 Assessment & Plan (05/15/2023 1:04 PM EDT): Well fitting, supportive shoes. Use warm pack prior to gentle, regular exercises-examples with pictures and detailed instructions printed for home use today. Use topical Arnica, Biofreeze versus Aspercreme versus Voltaren 2-3 times daily and at bedtime versus medicated patches such as Salonpas or IcyHot patch. In the past she did not benefit from a local steroid injection. Additional benefit may be achieved from regular warm pool exercising such as at [employer] in [place], [place]. Vitamin D insufficiency 05/28/2022 Assessment & Plan (05/15/2023 1:06 PM EDT): Continue daily supplementation to keep it in optimal serum range: 40-45 ng/ml. Assessment & Plan (05/28/2022 12:50 PM EDT): Recheck serum level to make sure she does not need adjustment in the supplementation. Prediabetes 05/08/2022 History of vitamin D deficiency 05/08/2022 Chronic left shoulder pain 05/08/2022 Acquired hypothyroidism 05/08/2022 Chronic migraine without aur a without status migrainosus, not intractable 05/08/2022 Assessment & Plan (05/12/2025 11:55 AM EDT): Keep well-hydrated, follow well-balanced nutritionally diet, continue regular relaxation/meditation sessions. Use ice pack over the forehead, go to dark, quiet and cool room and try to get some sleep. Keep diary of headaches with modifying factors/triggers to learn about preventive strategies Achilles tendinitis of left lower extremity 12/05 Assessment & Plan (12/24/2021 4:37 PM EDT): Well fitting, supportive shoes. Use warm pack prior to gentle stretching and muscle strengthening-examples of appropriate exercises with pictures and detailed instructions printed for home use today prior to getting formal PT. Gastroesophageal reflux disease without esophagi tis 12/29/2020 Assessment & Plan (04/17/2024 10:25 AM EDT): Avoid late, large, spicy meals. Keep headboard elevated at 45 angle for nighttime. Assessment & Plan (01/08/2024 12:18 PM EDT): Avoid late, large, spicy meals. Keep headboard elevated at 45 angle for nighttime. Assessment & Plan (05/15/2023 11:09 AM EDT): Avoid late, large, spicy meals. Keep headboard elevated at 45 angle for nighttime. Assessment & Plan (05/28/2022 12:48 PM EDT): Avoid late, large, spicy meals. Keep headboard elevated at 45 angle for nighttime. Assessment & Plan (12/20/2021 2:10 PM EDT): Avoid late, large, spicy meals. Keep headboard elevated at 45 angle for nighttime. Assessment & Plan (12/29/2020 2:54 PM EDT): Avoid late, large, spicy meals. Keep headboard elevated at 45 angle for nighttime. Inflammatory polyarthritis 11/25/2019 Assessment & Plan (05/12/2025 11:51 AM EDT): Clinically appears stable-new set of monitoring labs requested-orders in epic. Okay to carefully continue Plaquenil once stomach issues settled as prescribed in addition to joint protection, energy conservation techniques. Gentle, regular exercise routine preceded by warm pack or warm shower. Avoid falls, injuries, overuse. Keep body weight in ideal range for her height. Topical cream such as Arnica, Biofreeze, Aspercreme versus medicated patches such as salonpas, icy hot patch 2-3 times daily and if necessary at bedtime x 3 weeks. Consider local steroid injection if not better or worse. She was interested in other options to Plaquenil therefore I provided her with pamphlets on other conventional DMARDs (disease modifying antirheumatic drugs) such as Arava, methotrexate, sulfasalazine that may be used sequentially or concomitantly. I briefly reviewed the mode of administration, most frequent side effects from each of those medications and the time lag from the start to expected effect. She was asked to read pamphlets and write her questions for discussion at next visit or earlier if needed. Assessment & Plan (04/17/2024 10:24 AM EDT): Clinically appears stable-new set of monitoring labs requested-orders in epic. Okay to carefully continue Plaquenil once stomach issues settled as prescribed in addition to joint protection, energy conservation techniques. Gentle, regular exercise routine preceded by warm pack or warm shower. Avoid falls, injuries, overuse. Keep body weight in ideal range for her height. Topical cream such as Arnica, Biofreeze, Aspercreme versus medicated patches such as salonpas, icy hot patch 2-3 times daily and if necessary at bedtime x 3 weeks. Consider local steroid injection if not better or worse. She was interested in other options to Plaquenil therefore I provided her with pamphlets on other conventional DMARDs (disease modifying antirheumatic drugs) such as Arava, methotrexate, sulfasalazine that may be used sequentially or concomitantly. I briefly reviewed the mode of administration, most frequent side effects from each of those medications and the time lag from the start to expected effect. She was asked to read pamphlets and write her questions for discussion at next visit or earlier if needed. Assessment & Plan (01/08/2024 12:16 PM EDT): Clinically appears stable-new set of monitoring labs requested-orders in epic. Okay to carefully continue Plaquenil once stomach issues settled as prescribed in addition to joint protection, energy conservation techniques. Gentle, regular exercise routine preceded by warm pack or warm shower. Avoid falls, injuries, overuse. Keep body weight in ideal range for her height. Topical cream such as Arnica, Biofreeze, Aspercreme versus medicated patches such as salonpas, icy hot patch 2-3 times daily and if necessary at bedtime x 3 weeks. Consider local steroid injection if not better or worse. She was interested in other options to Plaquenil therefore I provided her with pamphlets on other conventional DMARDs (disease modifying antirheumatic drugs) such as Arava, methotrexate, sulfasalazine that may be used sequentially or concomitantly. I briefly reviewed the mode of administration, most frequent side effects from each of those medications and the time lag from the start to expected effect. She was asked to read pamphlets and write her questions for discussion at next visit or earlier if needed. Assessment & Plan (12/20/2021 2:08 PM EDT): Carefully continue Plaquenil as prescribed in addition to joint protection, energy conservation techniques. Gentle, regular exercise routine preceded by warm pack or warm shower. Avoid falls, injuries, overuse. Keep body weight in ideal range for her height. Topical cream such as Arnica, Biofreeze, Aspercreme versus medicated patches such as salonpas, icy hot patch 2-3 times daily and if necessary at bedtime x 3 weeks. Consider local steroid injection if not better or worse. She is interested in other options to Plaquenil therefore I provided her with pamphlets on other conventional DMARDs (disease modifying antirheumatic drugs) such as Arava, methotrexate, sulfasalazine that may be used sequentially or concomitantly. I briefly reviewed the mode of administration, most frequent side effects from each of those medications and the time lag from the start to expected effect. She is asked to read pamphlets and write her questions for discussion at next visit or earlier if ready. Assessment & Plan (01/06/2021 11:05 AM EDT): Carefully continue Plaquenil as prescribed in addition to joint protection, energy conservation techniques. Gentle, regular exercise routine preceded by warm pack or warm shower. Avoid falls, injuries, overuse. Keep body weight in ideal range for her height. Topical cream such as Arnica, Biofreeze, Aspercreme versus medicated patches such as salonpas, icy hot patch 2-3 times daily and if necessary at bedtime x 3 weeks. Consider local steroid injection if not better or worse. She is interested in other options to Plaquenil therefore I provided her with pamphlets on other conventional DMARDs (disease modifying antirheumatic drugs) such as Arava, methotrexate, sulfasalazine that may be used sequentially or concomitantly. I briefly reviewed the mode of administration, most frequent side effects from each of those medications and the time lag from the start to expected effect. She is asked to read pamphlets and write her questions for discussion at next visit or earlier if ready. Assessment & Plan (12/16/2019 9:38 AM EDT): Carefully continue Plaquenil as prescribed in addition to joint protection, energy conservation techniques. Gentle, regular exercise routine preceded by warm pack or warm shower.. Avoid falls, injuries, overuse. Keep body weight in ideal range for her height. Topical cream such as Arnica, Biofreeze, Aspercreme versus medicated patches such as salonpas, icy hot patch 2-3 times daily and if necessary at bedtime x 3 weeks. Consider local steroid injection if not better or worse. Long-term use of Plaquenil 11/25/2019 Assessment & Plan (04/17/2024 10:25 AM EDT): Take exactly as prescribed. Daily sun protection. Follow closely with territory account representative as scheduled at least every 12 months. Assessment & Plan (01/08/2024 12:18 PM EDT): Take exactly as prescribed. Daily sun protection. Follow closely with territory account representative as scheduled at least every 12 months. Assessment & Plan (12/20/2021 2:11 PM EDT): Take exactly as prescribed. Daily sun protection. Follow closely with territory account representative as scheduled at least every 12 months. Assessment & Plan (12/29/2020 2:53 PM EDT): Take exactly as prescribed. Daily sun protection. Follow closely with territory account representative as scheduled at least every 12 months. Assessment & Plan (12/16/2019 9:44 AM EDT): Take exactly as prescribed. Daily sun protection. Follow closely with territory account representative as scheduled at least every 12 months. Vitamin D insufficiency 11/25/2019 Assessment & Plan (12/20/2021 2:15 PM EDT): Recheck serum level to make sure she does not need adjustment in the supplementation. Assessment & Plan (01/06/2021 10:59 AM EDT): Recheck serum level to make sure she does not need adjustment in the supplementation. Assessment & Plan (12/16/2019 9:51 AM EDT): Check serum level to make sure no need to adjust the dose of supplementation to keep it in sufficient range Plantar fascial fibromatosis of left foot 2019 Assessment & Plan (05/28/2022 12:48 PM EDT): Well fitting, supportive shoes. Daily foot spa with gentle massage. Gentle stretching and muscle strengthening-examples of exercises printed with pictures and detailed descriptions. Keep body weight in ideal range for her height. Consider brace for nighttime and if worse or not better local steroid injection Assessment & Plan (12/24/2021 4:36 PM EDT): Well fitting, supportive shoes. Daily foot spa with gentle massage. Gentle stretching and muscle strengthening-examples of exercises printed with pictures and detailed descriptions. Keep body weight in ideal range for her height. Consider brace for nighttime and if worse or not better local steroid injection Assessment & Plan (01/06/2021 11:08 AM EDT): Well fitting, supportive shoes. Daily foot spa with gentle massage. Gentle stretching and muscle strengthening-examples of exercises printed with pictures and detailed descriptions. Keep body weight in ideal range for her height. Consider brace for nighttime and if worse or not better local steroid injection Assessment & Plan (12/16/2019 9:40 AM EDT): Well fitting, supportive shoes. Daily foot spa with gentle massage. Gentle stretching and muscle strengthening. Keep body weight in ideal range for her height. Consider brace for nighttime and if worse or not better local steroid injection Right shoulder pain 01/07/2019 Neck pain 11/08/2017 Assessment & Plan (04/17/2024 10:39 AM EDT): Continue proper posture. Avoid prolonged staring in 1 position. Gentle massage as tolerated Call if worsening symptoms particularly if weakness, increasing numbing or tingling or loss of sensation. Assessment & Plan (12/16/2019 9:44 AM EDT): Continue proper posture. Avoid prolonged staring in 1 position. Gentle massage as tolerated Call if worsening symptoms particularly if weakness, increasing numbing or tingling or loss of sensation. Primary osteoarthritis involving multiple joints 08/08/2017 Assessment & Plan (05/12/2025 11:50 AM EDT): Joint protection, energy conservation. Avoid falls, injuries, overuse. Gentle, regular exercise routine. She may benefit from topical cream such as Arnica, Biofreeze, Aspercreme versus medicated patches such as salonpas, icy hot patch 2-3 times daily and if necessary at bedtime x 3 weeks. Call with questions or problems otherwise return in 4 mths. Assessment & Plan (04/26/2024 1:55 PM EDT): Joint protection, energy conservation. Avoid falls, injuries, overuse. Gentle, regular exercise routine. She may benefit from topical cream such as Arnica, Biofreeze, Aspercreme versus medicated patches such as salonpas, icy hot patch 2-3 times daily and if necessary at bedtime x 3 weeks. Call with questions or problems otherwise return in 3 mths. Assessment & Plan (01/08/2024 12:15 PM EDT): Joint protection, energy conservation. Avoid falls, injuries, overuse. Gentle, regular exercise routine. She may benefit from topical cream such as Arnica, Biofreeze, Aspercreme versus medicated patches such as salonpas, icy hot patch 2-3 times daily and if necessary at bedtime x 3 weeks. Call with questions or problems otherwise return in 6 mths. Assessment & Plan (05/15/2023 1:05 PM EDT): Joint protection, energy conservation. Avoid falls, injuries, overuse. Gentle, regular exercise routine. She may benefit from topical cream such as Arnica, Biofreeze, Aspercreme versus medicated patches such as salonpas, icy hot patch 2-3 times daily and if necessary at bedtime x 3 weeks. Call with questions or problems otherwise return in 32 wks. Assessment & Plan (05/28/2022 12:48 PM EDT): Joint protection, energy conservation. Avoid falls, injuries, overuse. Gentle, regular exercise routine. She may benefit from topical cream such as Arnica, Biofreeze, Aspercreme versus medicated patches such as salonpas, icy hot patch 2-3 times daily and if necessary at bedtime x 3 weeks. Call with questions or problems otherwise return in 3 months. Assessment & Plan (12/20/2021 2:09 PM EDT): Joint protection, energy conservation. Avoid falls, injuries, overuse. Gentle, regular exercise routine. She may benefit from topical cream such as Arnica, Biofreeze, Aspercreme versus medicated patches such as salonpas, icy hot patch 2-3 times daily and if necessary at bedtime x 3 weeks. Call with questions or problems otherwise return in 3 months. Assessment & Plan (12/29/2020 2:45 PM EDT): Joint protection, energy conservation. Avoid falls, injuries, overuse. Gentle, regular exercise routine. She may benefit from topical cream such as Arnica, Biofreeze, Aspercreme versus medicated patches such as salonpas, icy hot patch 2-3 times daily and if necessary at bedtime x 3 weeks. Call with questions or problems otherwise return in 3 months. Assessment & Plan (12/16/2019 9:36 AM EDT): Joint protection, energy conservation. Avoid falls, injuries, overuse. Gentle, regular exercise routine. She may benefit from topical cream such as Arnica, Biofreeze, Aspercreme versus medicated patches such as salonpas, icy hot patch 2-3 times daily and if necessary at bedtime x 3 weeks. Call with questions or problems otherwise return in 3 months. Fibromyalgia 08/08/2017 Assessment & Plan (05/12/2025 11:52 AM EDT): We discussed the diagnosis of fibromyalgia, its natural history, and treatment. Specifically, we discussed that treatment requires many interventions and recognition that we are often unable to get patients completely pain free. Management of fibromyalgia requires patient engagement to address any underlying depression, anxiety, or sleep disorder. Further, patients are encouraged to engage in regular physical activity. Some studies have suggested that Fran Chi is effective. Other physical activity may including water-based aerobics, gentle yoga, walking, biking, swimming, Pilates etc. In terms of pharmacotherapy, there are many options, including tricyclic antidepressants, duloxetine, gabapentin or pregabalin, and cyclobenzaprine as well as other similar medications to those listed. In this case, the patient might try to focus on nonpharmacologic measures due to multiple intolerances to medications. She will benefit from reading & using knowledge acquired from book written by Dr Arnold [facility] addressing management strategies for patients with fibromyalgia utilizing mindfulness approach Additional benefit may be achieved from warm pool therapy such as at [place], [place]. Assessment & Plan (04/17/2024 10:24 AM EDT): We discussed the diagnosis of fibromyalgia, its natural history, and treatment. Specifically, we discussed that treatment requires many interventions and recognition that we are often unable to get patients completely pain free. Management of fibromyalgia requires patient engagement to address any underlying depression, anxiety, or sleep disorder. Further, patients are encouraged to engage in regular physical activity. Some studies have suggested that Fran Chi is effective. Other physical activity may including water-based aerobics, gentle yoga, walking, biking, swimming, Pilates etc. In terms of pharmacotherapy, there are many options, including tricyclic antidepressants, duloxetine, gabapentin or pregabalin, and cyclobenzaprine as well as other similar medications to those listed. In this case, the patient might try to build up the dose of gabapentin from 600 mg nightly to 900 mg nightly if her symptoms worsen and stomach issues resolved. She will benefit from reading & using knowledge acquired from book written by Dr [facility] addressing management strategies for patients with fibromyalgia utilizing mindfulness approach Additional benefit may be achieved from warm pool therapy such as at [place], [place]. Assessment & Plan (01/08/2024 12:18 PM EDT): We discussed the diagnosis of fibromyalgia, its natural history, and treatment. Specifically, we discussed that treatment requires many interventions and recognition that we are often unable to get patients completely pain free. Management of fibromyalgia requires patient engagement to address any underlying depression, anxiety, or sleep disorder. Further, patients are encouraged to engage in regular physical activity. Some studies have suggested that Fran Chi is effective. Other physical activity may including water-based aerobics, gentle yoga, walking, biking, swimming, Pilates etc. In terms of pharmacotherapy, there are many options, including tricyclic antidepressants, duloxetine, gabapentin or pregabalin, and cyclobenzaprine as well as other similar medications to those listed. In this case, the patient might try to build up the dose of gabapentin from 600 mg nightly to 900 mg nightly if her symptoms worsen and stomach issues resolved. She will benefit from reading & using knowledge acquired from book written by Dr Arnold Serna [facility] addressing management strategies for patients with fibromyalgia utilizing mindfulness approach Additional benefit may be achieved from warm pool therapy such as at [place], [place]. Assessment & Plan (05/15/2023 1:06 PM EDT): We discussed the diagnosis of fibromyalgia, its natural history, and treatment. Specifically, we discussed that treatment requires many interventions and recognition that we are often unable to get patients completely pain free. Management of fibromyalgia requires patient engagement to address any underlying depression, anxiety, or sleep disorder. Further, patients are encouraged to engage in regular physical activity. Some studies have suggested that Fran Chi is effective. Other physical activity may including water-based aerobics, gentle yoga, walking, biking, swimming, Pilates etc. In terms of pharmacotherapy, there are many options, including tricyclic antidepressants, duloxetine, gabapentin or pregabalin, and cyclobenzaprine as well as other similar medications to those listed. In this case, the patient might try to build up the dose of gabapentin from 600 mg nightly to 900 mg nightly. She will benefit from reading & using knowledge acquired from book written by Dr Arnold [facility] addressing management strategies for patients with fibromyalgia utilizing mindfulness approach Additional benefit may be achieved from warm pool therapy such as at [facility] in [place], [place]. Assessment & Plan (12/20/2021 2:09 PM EDT): We discussed the diagnosis of fibromyalgia, its natural history, and treatment. Specifically, we discussed that treatment requires many interventions and recognition that we are often unable to get patients completely pain free. Management of fibromyalgia requires patient engagement to address any underlying depression, anxiety, or sleep disorder. Further, patients are encouraged to engage in regular physical activity. Some studies have suggested that Fran Chi is effective. Other physical activity may including water-based aerobics, gentle yoga, walking, biking, swimming, Pilates etc. In terms of pharmacotherapy, there are many options, including tricyclic antidepressants, duloxetine, gabapentin or pregabalin, and cyclobenzaprine as well as other similar medications to those listed. In this case, the patient might try to build up the dose of gabapentin from 600 mg nightly to 900 mg nightly. She will benefit from reading & using knowledge acquired from book written by Dr Arnold conti addressing management strategies for patients with fibromyalgia utilizing mindfulness approach Assessment & Plan (12/29/2020 2:54 PM EDT): We discussed the diagnosis of fibromyalgia, its natural history, and treatment. Specifically, we discussed that treatment requires many interventions and recognition that we are often unable to get patients completely pain free. Management of fibromyalgia requires patient engagement to address any underlying depression, anxiety, or sleep disorder. Further, patients are encouraged to engage in regular physical activity. Some studies have suggested that Fran Chi is effective. Other physical activity may including water-based aerobics, gentle yoga, walking, biking, swimming, Pilates etc. In terms of pharmacotherapy, there are many options, including tricyclic antidepressants, duloxetine, gabapentin or pregabalin, and cyclobenzaprine as well as other similar medications to those listed. In this case, the patient might try to build up the dose of gabapentin from 600 mg nightly to 900 mg nightly. She will benefit from reading & using knowledge acquired from book written by Dr Arnold conit addressing management strategies for patients with fibromyalgia utilizing mindfulness approach Assessment & Plan (12/16/2019 9:41 AM EDT): We discussed the diagnosis of fibromyalgia, its natural history, and treatment. Specifically, we discussed that treatment requires many interventions and recognition that we are often unable to get patients completely pain free. Management of fibromyalgia requires patient engagement to address any underlying depression, anxiety, or sleep disorder. Further, patients are encouraged to engage in regular physical activity. Some studies have suggested that Fran Chi is effective. Other physical activity may including water-based aerobics, gentle yoga, walking, biking, swimming, Pilates etc. In terms of pharmacotherapy, there are many options, including tricyclic antidepressants, duloxetine, gabapentin or pregabalin, and cyclobenzaprine as well as other similar medications to those listed. In this case, the patient might try to build up the dose of gabapentin from 600 mg nightly to 900 mg nightly. She will benefit from reading & using knowledge acquired from book written by Dr Arnold Mckenna [facility] addressing management strategies for patients with fibromyalgia utilizing mindfulness approach Insomnia 08/08/2017 Assessment & Plan (05/12/2025 11:53 AM EDT): Sleep hygiene. Continue listening to relaxation tapes versus CALM or sleep with me apps nightly. May need to consider formal sleep study if waking up gasping for air. Assessment & Plan (04/17/2024 10:25 AM EDT): Sleep hygiene. Continue listening to relaxation tapes versus CALM or sleep with me apps nightly. May need to consider formal sleep study if waking up gasping for air. Assessment & Plan (05/28/2022 12:48 PM EDT): Sleep hygiene. Continue listening to relaxation tapes versus CALM or sleep with me apps nightly. May need to consider formal sleep study if waking up gasping for air. Assessment & Plan (12/20/2021 2:11 PM EDT): Sleep hygiene. Continue listening to relaxation tapes versus CALM or sleep with me apps nightly. May need to consider formal sleep study if waking up gasping for air. Assessment & Plan (01/06/2021 11:03 AM EDT): Sleep hygiene. Continue listening to relaxation tapes versus CALM or sleep with me apps nightly. May need to consider formal sleep study if waking up gasping for air. Assessment & Plan (12/16/2019 9:42 AM EDT): Sleep hygiene. Listen to relaxation tapes every evening prior to bed rest and every time she wakes up. Carefully increase the dose of gabapentin from 600 mg to 900 mg nightly. Carpal tunnel syndrome on both sides 08/08/2017 Assessment & Plan (05/12/2025 11:53 AM EDT): She had surgical release on the right side and is about to undergo EMG/NCS at the end of this month for assessing severity the opposite side Right carpal tunnel syndrome Disorder of thyroid Assessment & Plan (10/23/2024 12:22 PM EST): Continue synthroid Assessment & Plan (10/22/2024 11:23 PM EST): Continue synthroid Resolved Problems Problem Noted Date Diagnosed Date Resolved Date Inflammatory arthritis 08/08/201712/15 Encounters Date Type Department Care Team Description 05/20/2025 Telephone [facility] Medicine [address] [place] [address] Augustine Trammell CNP 05/12/2025 11:35 AM EDT - 05/12/2025 11:59 PM EDT Hospital Encounter [facility] [address] [place] [address] Rola Lyons MD Discharge Disposition: Home or Self Care 05/12/2025 11:00 AM EDT Office Visit [facility] Rheumatology [address] [place] [address] Rola Lyons MD Inflammatory polyarthritis (Primary Dx); Primary osteoarthritis involving multiple joints; Fibromyalgia; Insomnia, unspecified type; Chronic migraine without aura without status migrainosus, not intractable; Encounter for long-term use of non-steroidal anti-inflammatory medication; Cervical spinal stenosis; Carpal tunnel syndrome on both sides; Anxiety; Medial epicondylitis of right elbow; Vitamin D deficiency, unspecified; Iron deficiency anemia due to chronic blood loss 04/03/2025 1:16 PM EDT - 04/03/2025 11:59 PM EDT Hospital Encounter [address] [address] Ca Rosales NP Discharge Disposition: Home or Self Care 03/11/2025 Procedure Pass [address] [address] 03/11/2025 Transcribe Orders Virtual Department [address] [place] [id number] Ca Rosales NP Cervicalgia (Primary Dx) from Last 3 Months Immunizations Immunization Administration Dates Next Due COVID-19 (Pre-07/29) Pfizer Vaccine, mRNA, PF 01/09/2021 INFLUENZA, SPLIT VIRUS, TRIVALENT PF 06/12/2016 INFLUENZA, SPLIT VIRUS, TRIV ALENT W/ PRESERVATIVE IM 06/02/2012,05/31/2011 Influenza Quadrivalent Prese rvative Free IM 07/02/2020,07/03/2019 Influenza Quadrivalent w/ Preservative IM 07/22/2020 Influenza, Unspecified Formulation 08/09/2008,,07/09/2003 Novel [id number], Injectable 10/20/2009 Td, unspecified formulation 06/09/2004 Tdap 06/18/2012 Zoster recombinant 10/19/2019, 0,07/30/2019,2018,07/03/2019 Family History Medical History Relation Comments Thyroid cancer Daughter Cancer Father Breast cancer Sister Relation Status Comments Daughter Alive Father Sister Alive Social History Tobacco Use Types Packs/Day Years [...] Orientation Straight 08/04/2023 8: 40 PM EDT Last Filed Vital Signs Vital Sign Reading Time Taken Comments Blood Pressure 112/78 05/12/2025 10:44 AM EDT Pulse 80 05/12/2025 10:44 AM EDT Temperature 36.9 C (98.4 F) 10/24/2024 7:39 AM EST Respiratory Rate 20 10/24/2024 7:39 AM EST Oxygen Saturation 98% 05/12/2025 10:44 AM EDT Inhaled Oxygen Concentration - - Weight 73.9 kg (163 lb) 05/12/2025 10:44 AM EDT Height 157.5 cm (5' 2 ) 05/12/2025 10:44 AM EDT Body Mass Index 29.81 05/12/2025 10:44 AM EDT Plan of Treatment Upcoming Encounters Date Type Department Care Team (Late st Contact Info) Description 09/13/2025 10:30 AM EST Office Visit [facility] Rheumatology [address] [place] [address] Rola Lyons MD [address] [facility], [address] [place] [address] Health Maintenance Due Date Last Done Comments HIV ONE-TIME SCREENING (18-65 YEARS) 1979 PAP SMEAR 1982 COLOGUARD 2006 FIT TEST 2006 FOBT 2006 VIRTUAL COLONOSCOPY 2006 RSV VACCINE (1 - Risk 60-74 years 1-dose series) 2021 DEPRESSION SCREENING 05/08/2023 05/08/2022 TSH LEVEL 05/16/2023 05/16/2022 MAMMOGRAM 04/17/2024 04/17/2022, 11/07, 05/29/2019, Additional history exists LIPID PANEL 05/16/2027 05/16/2022 SCREENING FOR DIABETES 05/12/2028 05/12/2025 SIGMOIDOSCOPY 10/23/2029 10/23/2024 COLONOSCOPY 02/13/2032 02/12/2022, 02/26/2018 COLORECTAL CANCER SCREENING 02/13/2032 Adult Td,Tdap Booster 07/09/2032 07/09/2022 , 06/18/2012, 06/09/2004 ZOSTER VACCINES Completed 10/19/2019, 06/2020, 07/30/2019, Additional history exists HEPATITIS C SCREENING Completed 05/16/2022 COVID-19 VACCINE Completed 07/17/2024, , 01/31/2021, Additional history exists PNEUMOCOCCAL VACCINES (50+ years) Completed 07/17/2024, 09/18/2016 SMOKING STATUS SCREENING (Once After 26 Yrs) Completed 05/12/2025 HEPATITIS A VACCINES Aged Out No long er eligible based on patient's age to complete this topic HIB VACCINES Aged Out No longer eligi ble based on patient's age to complete this topic MENINGOCOCCAL VACCINES (ACWY) Aged Out No longer eligible based on patient's age to complete this topic MENINGOCOCCAL VACCINES (B) Aged Out N o longer eligible based on patient's age to complete this topic Medical Devices Implanted Type 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 Device Identifier Shelf Expiration Date Model / Serial / Lot Right Shoulder Neck Fusion [place] Suture 4.5mm Arthroscopy Reelx Stt Peek Ss Core Knotless Shapr Tip Expandable Bx/5ea - [id number] Implanted:Qty: 3 on 04/04/2023 by Abdon Schultz DO at [facility] Left: Shoulder SYBIL ENDOSCOPY 12/24/2024 [id number] / / [id number] [place] Suture 4.75mm Healicoil Rsb Ultratape Blue Ultrabraid - [id number] Implanted:Qty: 1 on 04/04/2023 by Abdon Schultz, DO at [facility] Left: Shoulder QUINN 07/30/2023 [id number] / / [id number] Procedures Procedure Name Priority Date/Time Associated Diagnosis Comments COMPREHENSIVE METABOLIC PANEL Routine 05/12/2025 11:42 AM EDT Primary osteoarthritis involving multiple joints C-REACTIVE PROTEIN Routine 05/12/2025 11 :42 AM EDT Primary osteoarthritis involving multiple joints SEDIMENTATION RATE (ESR) Routine 05/12/2025 11:42 AM EDT Primary osteoarthritis involving multiple joints CBC AND DIFFERENTIAL Routine 05/12/2025 11:42 AM EDT Primary osteoarthritis involving multiple joints 25-OH VITAMIN D Routine 05/12/2025 11:42 AM EDT Vitamin D deficiency, unspecified MRI CERVICAL SPINE (NEURO) FOCUS WITHOUT CONTRAST Routine 04/03/2025 2:11 PM EDT Cervicalgia ENDOSCOPY, SIGMOID 10/23/2024 1: 38 PM EST LIPID PANEL Routine 05/16/2022 11:15 AM EDT Screening, lipid HEPATITIS C ANTIBODY, QUALITATIVE Routine 05/16/2022 11:15 AM EDT Need for hepatitis C screening test TSH WITH REFLEX Routine 05/16/2022 11:15 AM EDT Acquired hypothyroidism HM MAMMOGRAPHY Routine 04/17/2022 ENDOSCOPY, COLON 02/12/2022 2:57 PM EDT from Last 3 Months or Most Recently Relevant to Health Maintenance Results * (ABNORMAL) Comprehensive metabolic panel (05/12/2025 11:42 AM EDT) SODIUM 144 133 - 146 mmol/L [facility] POTASSIUM 4.5 3.3 - 5.1 mmol/L [facility] CHLORIDE 105 96 - 108 mmol/L [facility] CO2 28 21 - 35 mmol/L [facility] BUN 16 6 - 19 mg/dL [facility] CREATININE 0.70 0.5 - 1.5 mg/dL [facility] GLUCOSE 104(H) 70 - 99 mg/dL [facility] ALBUMIN 4.2 3.9 - 4.8 g/dL [facility] TOTAL PROTEIN 7.8 6.5 - 8.0 g/dL [facility] CALCIUM 9.1 8.4 - 10.3 mg/dL [facility] ALKALINE PHOSPHATASE 114 39 - 117 U/L [facility] TOTAL BILIRUBIN <0.2 0.0 - 1.2 mg/dL [facility] AST 19 0 - 37 U/L [facility] ALT 10 0 - 40 U/L [facility] GLOBULIN 3.6 1 - 4.8 g/dL [facility] EGFR 97 >59 mL/min/1.7 3m2 [facility] Comment:Estimated glomerular filtration rate calculated using the CKD-EPI refit equation. ANION GAP 16 10 - 20 mmol/L [facility] Blood 05/12/2025 11:4 2 AM EDT 05/12/2025 11:47 AM EDT us Rola Lyons MD LAB BLOOD ORDERABLES Fin al Result [address] [address] * 25-OH vitamin D (05/12/2025 11:42 AM EDT) 25 OH VIT D (TOTAL) 45 30 - 60 ng/mL [facility] Blood 05/12/2025 11:4 2 AM EDT 05/12/2025 11:47 AM EDT Rola Lyons MD LAB BLOOD ORDERABLES Fin al Result [address] [address] * Sedimentation rate (ESR) (05/12/2025 11:42 AM EDT) Pathologist [facility] ESR 11 0 - 30 mm/h [facility] Blood 05/12/2025 11:4 2 AM EDT 05/12/2025 11:47 AM EDT Rola Lyons MD LAB BLOOD ORDERABLES Fin al Result Performing Organization Address City/[facility]/ZIP Co de Phone Number [address] [address] * (ABNORMAL) CBC and differential (05/12/2025 11:42 AM EDT) Pathologist [facility] WBC 5.23 4.00 - 11.00 K/uL [facility] RBC 4.87 4.00 - 5.20 M/uL [facility] HGB 14.5 12.0 - 16.0 g/dL [facility] HCT 44.5 36.0 - 46.0 % [facility] PLT 225 150 - 450 K/uL [facility] MCV 91.4 80.0 - 100.0 fL [facility] MCH 29.8 27.0 - 31.0 pg [facility] MCHC 32.6 32.0 - 36.0 g/dL [facility] RDW 13.5 11.5 - 14.5 % [facility] MPV 9.7 8.4 - 12.0 fL [facility] NRBC 0.00 0.00 /100 WBCs [facility] ABSOLUTE NRBC 0.00 0.00 K/uL [facility] DIFF METHOD Auto [facility] NEUTS 46.8(L) 48.0 - 76.0 % [facility] LYMPHS 41.1(H) 18.0 - 41.0 % [facility] MONOS 9.4 4.0 - 11.0 % [facility] EOS 1.7 0.0 - 5.0 % [facility] BASOS 1.0 0.0 - 1.5 % [facility] Granulocytes, immature (%) 0.0 0.0 - 0.9 % [facility] ABSOLUTE NEUTS 2.45 1.92 - 7.60 K/uL [facility] ABSOLUTE LYMPHS 2.15 0.72 - 4.10 K/uL [facility] ABSOLUTE MONOS 0.49 0.16 - 1.10 K/uL [facility] ABSOLUTE EOS 0.09 0.00 - 0.50 K/uL [facility] ABSOLUTE BASOS 0.05 0.00 - 0.15 K/uL [facility] Granulocytes, immature 0.00 0.00 - 0.09 K/uL [facility] Blood 05/12/2025 11:4 2 AM EDT 05/12/2025 11:47 AM EDT us Rola Lyons MD LAB BLOOD ORDERABLES Mark felipe Result Performing Organization Address City/State/[facility] Co de Phone Number [address] [address] * C-Reactive Protein (05/12/2025 11:42 AM EDT) C REACTIVE PROTEIN <3.0 0.0 - 4.0 mg/L [facility] Blood 05/12/2025 11:4 2 AM EDT 05/12/2025 11:47 AM EDT us Rola Lyons MD LAB BLOOD ORDERABLES Mark felipe Result [facility] [address] [place] [address] * MRI CERVICAL SPINE (NEURO) FOCUS WITHOUT [...] 2. Probable moderate bilateral C7-T1 foraminal stenosis. us Ca Rosales SURGICAL SERVICES MANAGER IMG MR XSPECIALTY Final R esult * ENDOSCOPY, SIGMOID (10/23/2024 1:38 PM EST) Narrative Transcriptions Josette Dumont MD - 10/23/2024 1:38 PM EST [facility] Patient Name: Paula Cordova Attending MD:: JOSETTE DUMONT MD, Procedure Date: 10/23/2024 1:38 PM Date of : 1960 Age: 64 Admit Type: Outpatient Gender: Female Room: [place] [address] Referring MD: Ca Rosales Exam Type: Flexible Sigmoidoscopy Indications: Hematochezia Medications: Monitored Anesthesia Care Procedure: Informed consent was obtained from the patientafter discussion of the indications, limitations, alternatives, benefits, and risks of the procedure. Risks specifically discussed include but are not limited to medication reactions, missed lesions, bleeding, perforation, or the need for emergent surgery. Throughout the procedure, the patient's blood pressure, pulse, end-tidal CO2, and oxygensaturations were monitored continuously. The Endoscope was introduced through the anus and advanced to the sigmoid colon. The flexible sigmoidoscopy was accomplished without difficulty. The patienttolerated the procedure well. The quality of the bowel preparation was fair. Complications: No immediate complications. Estimated blood loss:None. Findings: Internal hemorrhoids were found during retroflexion and during digital exam. The hemorrhoids werelarge. A tiny ulceration was noted next to a large column.The endoscope was withdrawn. One band was successfully placed at the right posterior position. There wasno bleeding at the end of the maneuver. The exam was otherwise without abnormality. Impression: - Preparation of the colon was fair. - Internal hemorrhoids. Banded. - The examination was otherwise normal. - No specimens collected. Recommendation: - [facility] - Recommend in-office hemorrhoid banding therapy to complete obliteration of remaining hemorrhoids,which is likely to result in cessation of bleeding. Josette Dumont JOSETTE DUMONT MD 10/23/2024 2:05:59 PM This report has been signed electronically. Number of Addenda: 0 Note Initiated On: 10/23/2024 1:38 PM Procedure Code(s): --- Professional --- 50729, Hemorrhoidectomy, internal, by rubber band ligation(s) --- Technical --- 78286, Hemorrhoidectomy, internal, by rubber band ligation(s) CPT copyright 2021 [employer]. All rights reserved. The codes documented in this report are preliminary and upon terminal block assembler reviewmay be revised to meet current compliance requirements. Procedure Date: 10/23/2024 1:38:[address] [place] [id number] Ca Rosales SURGICAL SERVICES MANAGER GI PROCEDURE ORDERABLES F inal Result * TSH with reflex (05/16/2022 11:15 AM EDT) TSH 0.66 0.27 - 4.20 uIU/mL [facility] Blood 05/16/2022 11:1 5 AM EDT 05/16/2022 11:18 AM EDT Destiny Gonzalez MD LAB BLOOD ORDERABLES Final Result Performing Organization Address [facility]/ZIP Co de Phone Number [address] [address] * Hepatitis C antibody, qualitative (05/16/2022 11:15 AM EDT) HCV NON-REACTIV E NON-REACTI VE [facility] Blood 05/16/2022 11:1 5 AM EDT 05/16/2022 11:18 AM EDT Destiny Gonzalez MD LAB BLOOD ORDERABLES Final Result Performing Organization Address [facility]/ZIP Co de Phone Number [address] [address] * (ABNORMAL) Lipid panel (05/16/2022 11:15 AM EDT) HDL 56 mg/dL [facility] Comment: Interpretation <40 mg/dL: Low HDL cholesterol (major risk factor for CHD) Greater than or equal to 60 mg/dL: High HDL cholesterol ( negative risk factor for CHD) HDL - cholesterol is affected by a number of factors, e.g. smoking, excerise, hormones, sex and age. CHOLESTEROL 226 0 - 240 mg/dL [facility] TRIGLYCERIDES 99 30 - 160 mg/dL [facility] LDL 150(H) 50 - 129 mg/dL [facility] Comment: LDL levels in terms of risk for coronary heart disease: <100 mg/dL: Optimal 100-129 mg/dL: Near or above optimal 130-159 mg/dL: Borderline high 160-189 mg/dL: High >190 mg/dL: Very High CARDIAC RISK RATIO 4.0 3.3 - 4.4 [facility] Blood 05/16/2022 11:1 5 AM EDT 05/16/2022 11:18 AM EDT us Destiny Gonzalez MD LAB BLOOD ORDERABLES Final Result [address] [address] * MAMMOGRAPHY FOR RESULT ENTRY ONLY (04/17/2022) us Historical Provider HEALTH MAINTENANCE Edited Result - Final * ENDOSCOPY, COLON (02/12/2022 2:57 PM EDT) Narrative Transcriptions Anastacio Dawn MD - 02/12/2022 2:57 PM EDT Patient Name: Paula Cordova Attending MD:: ANASTACIO DAWN MD Procedure Date: 02/12/2022 2:57 PM Date of : 1960 Age: 61 Admit Type: Outpatient Gender: Female Room: [facility] Referring MD: ANASTACIO VERA MD Exam Type: Colonoscopy Indications: Last colonoscopy: February 2018, Abdominal pain in the right lower quadrant Medications: Monitored Anesthesia Care Procedure: Informed consent was obtained from the patientafter discussion of the indications, limitations, alternatives, benefits, and risks of the procedure. Risks specifically discussed include but are not limited to medication reactions, missed lesions, bleeding, perforation, or the need for emergent surgery. Throughout the procedure, the patient's blood pressure, pulse, end-tidal CO2, and oxygensaturations were monitored continuously. The Olympus pediatric variable [id number] #2 was introduced through the anus and advanced tothe terminal ileum, with identification of theappendiceal orifice and IC valve. The colonoscopy was performed without difficulty. The patient tolerated the procedure well. The quality of the bowelpreparation was good. The terminal ileum, ileocecal valve, appendiceal orifice, and rectum werephotographed. Complications: No immediate complications. Estimated blood loss:None. Findings: The perianal and digital rectal examinations were normal. Pertinent negatives include normalsphincter tone. The terminal ileum appeared normal. Retroflexion in the right colon was performed. Non-bleeding hemorrhoids were found during retroflexion. The hemorrhoids were moderate. The exam was otherwise without abnormality ondirect and retroflexion views. Impression: - The examined portion of the ileum was normal. - Non-bleeding hemorrhoids. - The examination was otherwise normal on directand retroflexion views. - No specimens collected. Recommendation: - Reassurance - Repeat colonoscopy in 10 years for screening purposes. - Return to GI office as previously scheduled. ANASTACIO DAWN MD 02/12/2022 3:30:06 PM This report has been signed electronically. Number of Addenda: 0 Note Initiated On: 02/12/2022 2:57 PM Procedure Code(s): --- Professional --- 11642, Colonoscopy, flexible; diagnostic, including collection of specimen(s) by brushing or washing, when performed (separateprocedure) --- Technical --- 73427, Colonoscopy, flexible; diagnostic, including collection of specimen(s) by brushing or washing, when performed (separateprocedure) Diagnosis Code(s): --- Professional --- K64.9, Unspecified hemorrhoids R10.31, Right lower quadrant pain --- Technical --- K64.9, Unspecified hemorrhoids R10.31, Right lower quadrant pain CPT copyright 2020 [employer]. All rights reserved. The codes documented in this report are preliminary and upon terminal block assembler reviewmay be revised to meet current compliance requirements. Procedure Date: 02/12/2022 2:57:[address] [place] [address] Anastacio Vera MD GI PROCEDURE ORDERABLES Final R esult from Last 3 Months or Most Recently Relevant to Health [place] [address] MEDICARE PART A & B [facility] MEDICARE REPLACEMENT [id number] [address] MEDICARE PART A & B [facility] MEDICARE REPLACEMENT MEDICARE PART A & B [facility] MEDICARE REPLACEMENT [place] [id number] MEDICARE PART A & B [facility] MEDICARE REPLACEMENT [id number] [address] MEDICARE PART A & B [facility] MEDICARE REPLACEMENT [id number] [id number] MEDICARE PART A & B [facility] MEDICARE REPLACEMENT [place] [id number] MEDICARE PART A & B [facility] MEDICARE REPLACEMENT MEDICARE PART A & B [facility] [place] [address] MEDICARE PART A & B [facility] MEDICARE REPLACEMENT Advance Directives For more information, please contact: [phone] (9AM - 5PM [facility], Saturday-Saturday) Documents on File Type Date Recorded Patient Client Insights Consultant Expl anation Healthcare Proxy 10/27/2024 4:15 PM * Full Code (Latest Code Status on File) Date Activated Date Inactivated Comments 10/22/2024 11:13 PM Question Answer Comments Code Status Confirmed With: Patient * Full Code (Presumed) Date Activated Date Inactivated Comments 07/08/2019 9:04 AM 07/08/2019 2:57 PM Healthcare Agents on File Name Relationship Healthcare Agent Relationshi p Communication Jina Goldstein Daughter Alternate Heal thcare Agent (Proxy form on file) Donte Cordova Spouse .Primary Health Care Agent (Proxy form on file) Care Teams Medical Receptionist Relationship Specialty Start Date End Date Ca Rosales NP [address] [place] [address] PCP - General Nurse Practitioner 10/23/24 Rola Lyons MD [address] [place] [address], [address] [place] [address] [email or web address] Historical LMR Provider 07/28/17 Additional Source Comments The information contained in this document represents components of the legal health record. It is not the complete legal health record.[facility]
--- OUTSIDE RECORDS SUMMARY | 2025-06-04 14:11 | XMS_ITS | Encounter Summary ---
Author Organization [facility] Address [address] [place] [address] Phone Care Team Providers Care Senior Project Leader/Team Lead Name Role Phone Julian Cooper MD Primary Care Provider [phone] Julian Cooper MD Unavailable [phone] Rola Lyons MD Unavailable [phone] Abdon Schultz DO Unavailable [phone] Julian Cooper MD Primary Care Provider [phone] Destiny Gonzalez MD Primary Care Provid er Unknown, Unknown Primary Care Provider Zunilda Means Primary Care Prov ider Ca Rosales NP Primary Care Provider [phone] Reason for Referral * Physical Therapy (Routine) - Closed Specialty Diagnoses / Procedures Referred By Contac t Referred To Contact Physical Therapy Diagnoses Encounter for rehabilitation Zunilda Rojas PA Phone: tel: fax: [email or web address]:[email or web address] [place] [address] Phone: tel: Referral ID Status Reason Start Date Expiration Date Visits Re quested Visits Authorized [id number] Closed 09/09/2019 09/09/2020 99 99 Encounter Details Date Type Department Care Team (Latest Contact Info) Description 09/09/2019 Transcribe Orders [facility] [address] [place] [address] Zunilda Rojas PA [address] [place] [address] [email or web address] Encounter for rehabilitation (Primary Dx) Social History [...] 09/13/2025 10:30 AM EST Office Visit [facility] Rheumatology [address] [place] [address] Rola Lyons MD [address] [facility], [address] [place] [address] documented as of this encounter Procedures Procedure Name Priority Date/Time Associated Diagnosis Comments AMB REFERRAL TO [facility] PHYSICAL THERAPY Routine 10/02/2019 2:41 PM EST Encounter for rehabilitation documented in this encounter Results * Ambulatory referral to [facility] Physical Therapy (10/02/2019 2:41 PM EST) Result [facility] Zunilda RAVI [facility] REFERRALS Final Result documented in this encounter Visit Diagnoses Diagnosis Encounter for rehabilitation- Primary documented in this encounter Care Teams Senior Project Leader/Team Lead Relationship Specialty Start Date End Date Julian Cooper MD [address] [place] [address] [email or web address] PCP - General 07/25/17 11/28/20 Julian Cooper MD [address] [place] [address] [email or web address] PCP - General Family Medicine 11/29/20 05/07/22 Destiny Gonzalez MD [address] [place] [address] [email or web address] PCP - General Family Medicine 05/08/22 08/09/22 Unknown, MD Neena PCP - General 10/29/22 12/04/22 Zunilda Rojas PA jerald PCP - General Physician Upper Marker 12/05/22 10/22/24 Ca Rosales NP [address] [place] [address] PCP - General Nurse Practitioner 10/23/24 Julian Cooper MD [address] [place] [address] [email or web address] Historical LMR Provider 07/28/17 2 Rola Lyons MD [address] [facility], [address] [place] [address] [email or web address] Historical LMR Provider 07/28/17 Abdon Schultz DO [address] [place] [address] Orthopedics & Sports Medicine, [place] [address] [email or web address] Historical LMR Provider 07/28/17 10/14/21 documented as of this encounter Additional Source Comments The information contained in this document represents components of the legal health record. It is not the complete legal health record.[facility]
--- OUTSIDE RECORDS SUMMARY | 2025-06-04 14:11 | XMS_ITS | Encounter Summary ---
Author Organization [employer] [facility] Address [address] [place] [address] Phone Care Team Providers Care Budget Assistant Name Role Phone Rola Lyons MD Unavailable [phone] Ca Rosales NP Primary Care Provider [phone] Encounter Details Date Type Department Care Team (Late st Contact Info) Description 05/20/2025 Telephone [facility] [address] [place] [address] Augustine Trammell, YVES [address] [place] [address] Social History Tobacco Use Types Packs/Day Years [...] PM EDT documented as of this encounter Progress Notes * Lila Blackwellhaniel - 05/20/2025 1:32 PM EDT Pt daughter called to schedule an NPV with Augustine Trammell for the pt. Pt daughter stated that pt wouldlike an NPV some time after November of next year. Unable to schedule in bookit. Please contact [employer] [facility] [employer] (Please do not reply to this user; this inbox is not monitored.) Thank you. documented in this encounter Plan of Treatment Upcoming Encounters Date Type Department Care Team (Late st Contact Info) Description 09/13/2025 10:30 AM EST Office Visit [facility] Rheumatology [address] [place] [address] Rola Lyons MD [address] [place] [address] documented as of this encounter Visit Diagnoses Not on filedocumented in this encounter Additional Health Concerns Assessment Noted Time PHQ-2 Depression Total Score: 0 05/08/20 22 8:17 AM EDT documented as of this encounter Care Teams Budget Assistant Relationship Specialty Start Date End Date Ca Rosales NP [address] [place] [address] PCP - General Nurse Practitioner 10/23/24 Rola Lyons MD [address] [place] [address] Historical LMR Provider 07/28/17 documented as of this encounter Additional Source Comments The information contained in this document represents components of the legal health record. It is not the complete legal health record.[facility]
--- OUTSIDE RECORDS SUMMARY | 2025-06-04 14:11 | XMS_ITS | Encounter Summary ---
Author Organization [employer] [facility] Address [address] [place] [address] Phone Care Team Providers Care Stonecutter Hand Name Role Phone Rola Lyons MD Unavailable Zunilda Rojas Primary Care Prov ider Ca Rosales NP Primary Care Provider [phone] Encounter Details Date Type Department Care Team (Late st Contact Info) Description 04/04/2023 Procedure Pass OR Admitting Dept - Virtual Department [address] [place] [address] Social History Tobacco Use Types Packs/Day Years [...] high school, GED, job training, learning the Kinyarwanda language, technical skills, or developing parenting skills)? [...] Visit [facility] Rheumatology [address] [place] [address] Rola Lyons MD [address] [facility], [address] [place] [address] documented as of this encounter Visit Diagnoses Not on filedocumented in this encounter Additional Health Concerns Assessment Noted Time PHQ-2 Depression Total Score: 0 05/08/20 22 8:17 AM EDT documented as of this encounter Care Teams Stonecutter Hand Relationship Specialty Start Date End Date Zunilda Rojas PA [address] [place] [address], [address] [address] jerald PCP - General Physician Electrical Tester Battery 12/05/22 10/22/24 Ca Rosales NP [address] [place] [address] PCP - General Nurse Practitioner 10/23/24 Rola Lyons MD [address] [place] [address], [address] [address] [email or web address] Historical LMR Provider 07/28/17 documented as of this encounter Additional Source Comments The information contained in this document represents components of the legal health record. It is not the complete legal health record.[facility]
== END 2025-06-04 14:08 | disposition home or self-care (01) ==
LOC: HO.NEURO 14:07
PROVIDERS: Visit Provider Physician Assistant
DX: R20.0 Anesthesia of skin (principal); R94.138 Abnormal results of other function studies of peripheral nervous system
CPT/HCPCS: 95869; 95886; 95911

== ENCOUNTER → 2025-06-04 14:09 | Outpatient (BNV) | payer OTHER, MEDICAID, SELFPAY | PROVIDERS: Visit Provider Physical Medicine & Rehabilitation | DX: G62.89 Other specified polyneuropathies (principal) | CPT/HCPCS: 95886; 95887; 95909 ==

== ENCOUNTER 2025-06-24 10:33 | Outpatient (AMB) | payer OTHER, MEDICAID, SELFPAY ==
--- NOTE | 2025-06-24 11:06 | HO.SPINEOV ---
Intake Visit Reasons: EMG results Intake Note: Ms. Cordova is here today to F/u on the results to her EMG. Elementary Reading Tutor Required: No Allergies clarithromycin (From Biaxin) Allergy (Mild, Verified 07/28/25 10:35) Unknown morphine Allergy (Mild, Verified 07/28/25 10:35) Rash Assessment & Plan Assessment & Plan (1) Hand numbness: Code(s): R20.0 - Anesthesia of skin Category: Medical Plan Paula is a pleasant 64 year old female who comes in today for a follow-up after having an EMG completed. To recap she was suffering from some fairly significant neck pain and bilateral hand / index finger pain. She has a history of C3-5 ACDF and C6-7 artificial disc. After reviewing her case with the attending neurosurgeon Dr. Arriaga, he recommended that she be sent for EMG imaging to determine if she had a true cervical radiculopathy, or if there was some other underlying issue occurring. Her EMG showed no evidence for cervical radiculopathy. It did show that she has severe left-sided carpal tunnel syndrome, however she states that her right arm / hand is significantly worse than her left side. Her symptoms have persisted since her last visit. Unfortunately I do not believe there is a surgery that we could offer her that could provide meaningful symptom relief in the absence of EMG imaging supporting nerve compression that is causing radicular pain down her arms. I would like to place a referral for her to be evaluated by Neurology. The patient understands and agrees to this. Newton Arriaga MD,PhD [facility] Orders: Referrals Neurology Referral R20.0 - Anesthesia of skin Coding Level of Care Code Global (78414) Diagnoses Hand numbness R20.0
--- OUTSIDE RECORDS SUMMARY | 2025-06-24 12:36 | XMS_ITS | Encounter Summary ---
Author Organization [facility] Address [address] [place] [address] Phone Care Team Providers Care Hide Grader Name Role Phone Rola Lyons MD Unavailable [phone] Zunilda Rojas Primary Care Prov ider Ca Rosales NP Primary Care Provider [phone] Reason for Referral * Outpatient Procedure - Closed Specialty Diagnoses / Procedures Referred By Carlton tenorio Referred To Contact Radiology Diagnoses Constipation, unspecified constipation type Epigastric abdominal pain LUQ abdominal pain Nausea Procedures NM Gastric Emptying Cary Johnson PA Phone: tel: fax: [email or web address] Referral ID Status Reason Start Date Expiration Date Visits Re quested Visits Authorized [id number] Closed 08/13/2023 08/12/2024 1 1 Encounter Details Date Type Department Care Team (Late st Contact Info) Description 08/13/2023 Transcribe Orders Virtual Department [address] [place] [address] Cary Johnson PA [address] [place] [address] [email or web address] Constipation, unspecified constipation type (Primary Dx); Epigastric [...] high school, GED, job training, learning the Georgian language, technical skills, or developing parenting skills)? [...] Description 09/13/2025 10:30 AM EST Office Visit [facility] Rheumatology [address] [place] [address] Rola Lyons MD [address] [facility], [address] [place] [address] [email or web address] documented as of this encounter Results * [...] or greater of the standard meal (PMID: 39117506) and approximate the normative emptying values of EnsurePlus (PMID: [id number]). Procedure Note Karen Gupta MD - 09/05/2023 [...] 50% or greater of the standard meal(PMID: 50760310) and approximate the normative emptying values ofEnsurePlus (PMID: [id number]). IMPRESSION: Gastric emptying study within normal limits. [...] documented as of this encounter Care Teams Hide Grader Relationship Specialty Start Date End Date Zunilda Rojas PA [address] [facility], [address] [place] [address] jerald PCP - General Physician Crib Clerk 12/05/22 10/22/24 Ca Rosales NP [address] [place] [address] PCP - General Nurse Practitioner 10/23/24 Rola Lyons MD [address] [place] [address] [email or web address] Historical LMR Provider 07/28/17 documented as of this encounter Additional Source Comments The information contained in this document represents components of the legal health record. It is not the complete legal health record.[facility]
--- OUTSIDE RECORDS SUMMARY | 2025-06-24 12:36 | XMS_ITS | Encounter Summary ---
Author Organization [employer] [facility] Address [address] [place] [address] Phone Care Team Providers Care Desk Reporter Name Role Phone Rola Lyons MD Unavailable [phone] Julian Cooper MD Primary Care Provider [phone] Destiny Gonzalez MD Primary Care Provid er Unknown, Unknown Primary Care Provider Zunilda Means Primary Care Prov ider Ca Rosales NP Primary Care Provider [phone] Encounter Details Date Type Department Care Team (Late st Contact Info) Description 02/12/2022 Procedure Pass [facility] Endoscopy Admitting Dept Virtual Department [address] [place], [place] [id number] Social History Tobacco Use Types Packs/Day Years [...] Description 09/13/2025 10:30 AM EST Office Visit [facility] Rheumatology [address] [place] [address] Rola Lyons MD 22 [facility], [address] [place] [address] [email or web address] documented as of this encounter Visit Diagnoses Not on filedocumented in this encounter Care Teams Desk Reporter Relationship Specialty Start Date End Date Julian Cooper MD [address] [place] [address] [email or web address] PCP - General Family Medicine 11/29/20 05/07/22 Destiny Gonzalez MD 22 [facility] Francis [address] [place] [address] [email or web address] PCP - General Family Medicine 05/08/22 08/09/22 Unknown, Unknown, PCP - General 10/29/22 12/04/22 Zunilda Rojas PA jerald PCP - General Physician Lodge Officer 12/05/22 10/22/24 Ca Rosales NP [address] [place] [address] PCP - General Nurse Practitioner 10/23/24 Rola Lyons MD [address] [place] [address], [address] [place] [address] [email or web address] Historical LMR Provider 07/28/17 documented as of this encounter Additional Source Comments The information contained in this document represents components of the legal health record. It is not the complete legal health record.[facility]
--- OUTSIDE RECORDS SUMMARY | 2025-06-24 12:36 | XMS_ITS | Encounter Summary ---
Author Organization [facility] Address [address] [place] [address] Phone Care Team Providers Care Cover Operator Name Role Phone Julian Cooper MD Primary Care Provider [phone] Julian Cooper MD Unavailable [phone] Rola Lyons MD Unavailable Abdon Schultz DO Unavailable [phone] Julian Cooper MD Primary Care Provider [phone] Destiny Gonzalez MD Primary Care Provid er Unknown, Unknown Primary Care Provider Zunilda Means Primary Care Prov ider Ca Rosales NP Primary Care Provider [phone] Encounter Details Date Type Department Care Team (Late st Contact Info) Description 02/26/2018 Procedure Pass [facility] Endoscopy Admitting Dept Virtual Department [address] [place] [address] Social History Tobacco Use Types Packs/Day Years [...] 09/13/2025 10:30 AM EST Office Visit [facility] Rheumatology [address] [place] [address] Rola Lyons MD 22 [facility], [address] [place] [address] [email or web address] documented as of this encounter Visit Diagnoses Not on filedocumented in this encounter Care Teams Cover Operator Relationship Specialty Start Date End Date Julian Cooper MD [address] [place] [address] [email or web address] PCP - General 07/25/17 11/28/20 Julian Cooper MD [address] [place] [address] [email or web address] PCP - General Family Medicine 11/29/20 05/07/22 Destiny Gonzalez MD 22 [facility] Francis [address] [place] [address] [email or web address] PCP - General Family Medicine 05/08/22 08/09/22 Unknown, Neena, PCP - General 10/29/22 12/04/22 Zunilda Rojas PA jerald PCP - General Physician Flavoring Maker 12/05/22 10/22/24 Ca Rosales NP [address] [place] [address] PCP - General Nurse Practitioner 10/23/24 Julian Cooper MD [address] [place] [address] [email or web address] Historical LMR Provider 07/28/17 2 Rola Lyons MD [address] [place] [address], [address] [place] [address] Historical LMR Provider 07/28/17 Abdon Schultz DO [address] [place] [address] Orthopedics & Sports Medicine, [facility] [place] [address] Historical LMR Provider 07/28/17 10/14/21 documented as of this encounter Additional Source Comments The information contained in this document represents components of the legal health record. It is not the complete legal health record.[facility]
--- OUTSIDE RECORDS SUMMARY | 2025-06-24 12:36 | XMS_ITS | Encounter Summary ---
Author Organization [employer] [facility] Address [address] [place] [address] Phone Care Team Providers Care Almond Cutting Machine Tender Name Role Phone Rola Lyons MD Unavailable [phone] Zunilda Rojas Primary Care Prov ider Ca Rosales NP Primary Care Provider [phone] Encounter Details Date Type Department Care Team (Late st Contact Info) Description 08/05/2023 Procedure Pass [facility] [address] [place] [address] Social History Tobacco Use Types Packs/Day Years [...] high school, GED, job training, learning the Argentine language, technical skills, or developing parenting skills)? [...] 08/05/2023 1:02 AM Ronit Blake, SIDDHARTHA * [facility] Suicide Severity Rating Scale (Screener/Recent Self-Report) Question [...] Description 09/13/2025 10:30 AM EST Office Visit [facility] Rheumatology [address] [place] [address] Rola Lyons MD [address] [place] [address] [email or web address] documented as of this encounter Visit Diagnoses Not on filedocumented in this encounter Additional Health Concerns Assessment Noted Time PHQ-2 Depression Total Score: 0 05/08/20 22 8:17 AM EDT documented as of this encounter Care Teams Almond Cutting Machine Tender Relationship Specialty Start Date End Date Zunilda Rojas PA [address] [place] [address] jerald PCP - General Physician Deputy Building Guard 12/05/22 10/22/24 Ca Rosales NP [address] [place] [address] PCP - General Nurse Practitioner 10/23/24 Rola Lyons MD [address] [place] [address] Historical LMR Provider 07/28/17 documented as of this encounter Additional Source Comments The information contained in this document represents components of the legal health record. It is not the complete legal health record.[facility]
--- OUTSIDE RECORDS SUMMARY | 2025-06-24 12:36 | XMS_ITS | Encounter Summary ---
Author Organization [facility] Address [address] [place] [address] Phone Care Team Providers Care Installation And Repair Technician Name Role Phone Julian Cooper MD Primary Care Provider Julian Cooper MD Unavailable [phone] Rola Lyons MD Unavailable [phone] Abdon Schultz DO Unavailable [phone] Julian Cooper MD Primary Care Provider [phone] Destiny Gonzalez MD Primary Care Provid er Unknown, Unknown Primary Care Provider Zunilda Means Primary Care Prov ider Ca Rosales NP Primary Care Provider [phone] Encounter Details Date Type Department Care Team (Late st Contact Info) Description 01/28/2019 Ancillary Orders [facility],Outside Imaging [address] [place] [address] System, Provider Not In, PhD Partners [address] [address] Social History Tobacco Use Types Packs/Day Years [...] Description 09/13/2025 10:30 AM EST Office Visit [facility] Rheumatology [address] [place] [address] Rola Lyons MD 22 [facility], [address] [place] [address] [email or web address] documented as of this encounter [...] on filedocumented in this encounter Care Teams Installation And Repair Technician Relationship Specialty Start Date End Date Julian Cooper MD 70 [place] [address] [email or web address] PCP - General 07/25/17 11/28/20 Julian Cooper MD 70 [place] [address] [email or web address] PCP - General Family Medicine 11/29/20 05/07/22 Destiny Gonzalez MD 22 [facility] Francis [address] [place] [address] [email or web address] PCP - General Family Medicine 05/08/22 08/09/22 Unknown, Unknown, PCP - General 10/29/22 12/04/22 Zunilda Rojas PA jerald PCP - General Physician Trawl Net Maker 12/05/22 10/22/24 Ca Rosales NP [address] [place] [address] PCP - General Nurse Practitioner 10/23/24 Julian Cooper MD [address] [place] [address] [email or web address] Historical LMR Provider 07/28/17 2 Rola Lyons MD 22 [facility], [address] [place] [address] Historical LMR Provider 07/28/17 Abdon Schultz DO [address] [place] [address] Orthopedics & Sports Medicine, [facility] [place] [address] Historical LMR Provider 07/28/17 10/14/21 documented as of this encounter Additional Source Comments The information contained in this document represents components of the legal health record. It is not the complete legal health record.[facility]
--- OUTSIDE RECORDS SUMMARY | 2025-06-24 12:38 | XMS_ITS | Encounter Summary ---
Author Organization [facility] Address [address] [place] [address] Phone Care Team Providers Care Sports Equipment Repairer Name Role Phone Julian Cooper MD Unavailable [phone] Rola Lyons MD Unavailable [phone] Abdon Schultz DO Unavailable [phone] Julian Cooper MD Primary Care Provider [phone] Destiny Gonzalez MD Primary Care Provid er Unknown, Unknown Primary Care Provider Zunilda Means Primary Care Prov ider Ca Rosales NP Primary Care Provider [phone] Encounter Details Date Type Department Care Team (Late st Contact Info) Description 11/29/2020 Ancillary Orders [facility] at [address] [address] Zunilda Rojas PA [address] [place] [address] samanta Bilateral breast lump Social History Tobacco [...] Description 09/13/2025 10:30 AM EST Office Visit [facility] Rheumatology [address] [place] [address] Rola Lyons MD [address] [place] [address], [address] [place] [address] [email or web address] documented as of this encounter [...] lump documented in this encounter Care Teams Sports Equipment Repairer Relationship Specialty Start Date End Date Julian Cooper MD [address] [place] [address] [email or web address] PCP - General Family Medicine 11/29/20 05/07/22 Destiny Gonzalez MD [address] [place] [address] [email or web address] PCP - General Family Medicine 05/08/22 08/09/22 Unknown, Unknown, PCP - General 10/29/22 12/04/22 Zunilda Rojas PA jerald PCP - General Physician Zookeeper 12/05/22 10/22/24 Ca Rosales NP 70 [place] [address] PCP - General Nurse Practitioner 10/23/24 Julian Cooper MD 70 [place] [address] [email or web address] Historical LMR Provider 07/28/17 2 Rola Lyons MD [address] [place] [address], [address] [place] [address] Historical LMR Provider 07/28/17 Abdon Schultz DO [address] [place] [address] Orthopedics & Sports Medicine, [facility] [place] [address] Historical LMR Provider 07/28/17 10/14/21 documented as of this encounter Additional Source Comments The information contained in this document represents components of the legal health record. It is not the complete legal health record.[facility]
--- OUTSIDE RECORDS SUMMARY | 2025-06-24 12:38 | XMS_ITS | Encounter Summary ---
Author Organization [employer] [facility] Address [address] [place] [address] Phone Care Team Providers Care Therapeutic Dietitian Name Role Phone Julian Cooper MD Unavailable [phone] Rola Lyons MD Unavailable [phone] Abdon Schultz DO Unavailable [phone] Julian Cooper MD Primary Care Provider [phone] Destiny Gonzalez MD Primary Care Provid er Unknown, Unknown Primary Care Provider Zunilda Means Primary Care Prov ider Ca Rosales NP Primary Care Provider [phone] Encounter Details Date Type Department Care Team (Late st Contact Info) Description 11/29/2020 Procedure Pass [facility] - [address] [place] [address] Social History Tobacco Use Types Packs/Day Years [...] Description 09/13/2025 10:30 AM EST Office Visit [facility] Rheumatology [address] [place] [address] Rola Lyons MD 22 [facility], [address] [place] [address] [email or web address] documented as of this encounter Visit Diagnoses Not on filedocumented in this encounter Care Teams Therapeutic Dietitian Relationship Specialty Start Date End Date Julian Cooper MD 70 [place] [address] [email or web address] PCP - General Family Medicine 11/29/20 05/07/22 Destiny Gonzalez MD [address] [place] [address] [place] [address] [email or web address] PCP - General Family Medicine 05/08/22 08/09/22 Unknown, Unknown, PCP - General 10/29/22 12/04/22 Zunilda Rojas PA jerald PCP - General Physician Television News Producer 12/05/22 10/22/24 Ca Rosales NP [address] [place] [address] PCP - General Nurse Practitioner 10/23/24 Julian Cooper MD [address] [place] [address] [email or web address] Historical LMR Provider 07/28/17 2 Rola Lyons MD [address] [place] [address], [address] [place] [address] Historical LMR Provider 07/28/17 Abdon Schultz DO [address] [place] [address] Orthopedics & Sports Medicine, [facility] [place] [address] Historical LMR Provider 07/28/17 10/14/21 documented as of this encounter Additional Source Comments The information contained in this document represents components of the legal health record. It is not the complete legal health record.[facility]
--- OUTSIDE RECORDS SUMMARY | 2025-06-24 12:38 | XMS_ITS | Encounter Summary ---
Author Organization [facility] Address [address] [facility] [address] [place] [address] Phone Care Team Providers Care Zyglo Technician Name Role Phone Julian Cooper MD Unavailable [phone] Rola Lyons MD Unavailable [phone] Abdon Schultz DO Unavailable [phone] Julian Cooper MD Primary Care Provider [phone] Destiny Gonzalez MD Primary Care Provid er Unknown, Unknown Primary Care Provider Zunilda Means Primary Care Prov ider Ca Rosales NP Primary Care Provider [phone] Encounter Details Date Type Department Care Team (Late st Contact Info) Description 11/29/2020 Ancillary Orders [facility],Outside Imaging [address] [place], [place] [id number] System, Provider Not In, PhD Partners [address] [address] Social History Tobacco Use Types Packs/Day Years [...] 09/13/2025 10:30 AM EST Office Visit [facility] Rheumatology [address] [place] [address] Rola Lyons MD [address] [place] [address], [address] [place] [address] [email or web address] documented as of this encounter Results * [...] on filedocumented in this encounter Care Teams Zyglo Technician Relationship Specialty Start Date End Date Julian Cooper MD [address] [place] [address] [email or web address] PCP - General Family Medicine 11/29/20 05/07/22 Destiny Gonzalez MD [address] [place] [address] [email or web address] PCP - General Family Medicine 05/08/22 08/09/22 Unknown, Unknown, PCP - General 10/29/22 12/04/22 Zunilda Rojas PA jerald PCP - General Physician Verification Specialist 12/05/22 10/22/24 Ca Rosales NP [address] [place] [address] PCP - General Nurse Practitioner 10/23/24 Julian Cooper MD [address] [place] [address] [email or web address] Historical LMR Provider 07/28/17 2 Rola Lyons MD [address] [place] [address], [address] [place] [address] [email or web address] Historical LMR Provider 07/28/17 Abdon Schultz DO [address] [place] [address] Orthopedics & Sports Medicine, [place] [address] Historical LMR Provider 07/28/17 10/14/21 documented as of this encounter Additional Source Comments The information contained in this document represents components of the legal health record. It is not the complete legal health record.[facility]
--- OUTSIDE RECORDS SUMMARY | 2025-06-24 12:38 | XMS_ITS | Encounter Summary ---
Author Organization [facility] Address [address] [place] [address] Phone Care Team Providers Care Germination Worker Name Role Phone Julian Cooper MD Primary Care Provider Julian Cooper MD Unavailable [phone] Rola Lyons MD Unavailable Abdon Schultz DO Unavailable [phone] Julian Cooper MD Primary Care Provider [phone] Destiny Gonzalez MD Primary Care Provid er Unknown, Unknown Primary Care Provider Zunilda Means Primary Care Prov ider Ca Rosales NP Primary Care Provider [phone] Encounter Details Date Type Department Care Team (Late st Contact Info) Description 01/09/2019 Procedure Pass [facility], [facility] - [address] [address] Social History Tobacco Use Types Packs/Day Years [...] Description 09/13/2025 10:30 AM EST Office Visit [facility] Rheumatology [address] [place] [address] Rola Lyons MD 22 [facility], [address] [place] [address] [email or web address] documented as of this encounter Visit Diagnoses Not on filedocumented in this encounter Care Teams Germination Worker Relationship Specialty Start Date End Date Julian Cooper MD [address] [place] [address] [email or web address] PCP - General 07/25/17 11/28/20 Julian Cooper MD 70 [place] [address] [email or web address] PCP - General Family Medicine 11/29/20 05/07/22 Destiny Gonzalez MD [address] [place] [address] [place] [address] [email or web address] PCP - General Family Medicine 05/08/22 08/09/22 Unknown, MD Neena PCP - General 10/29/22 12/04/22 Zunilda Rojas PA jerald PCP - General Physician Hair Dryer 12/05/22 10/22/24 Ca Rosales NP [address] [place] [address] PCP - General Nurse Practitioner 10/23/24 Julian Cooper MD [address] [place] [address] [email or web address] Historical LMR Provider 07/28/17 2 Rola Lyons MD [address] [place] [address], [address] [place] [address] Historical LMR Provider 07/28/17 Abdon Schultz DO [address] [place] [address] Orthopedics & Sports Medicine, [facility] [place] [address] Historical LMR Provider 07/28/17 10/14/21 documented as of this encounter Additional Source Comments The information contained in this document represents components of the legal health record. It is not the complete legal health record.[facility]
--- OUTSIDE RECORDS SUMMARY | 2025-06-24 12:38 | XMS_ITS | Encounter Summary ---
Author Organization [facility] Address [address] [place] [address] Phone Care Team Providers Care Web Retailer Name Role Phone Julian Cooper MD Unavailable [phone] Rola Lyons MD Unavailable [phone] Abdon Schultz DO Unavailable [phone] Julian Cooper MD Primary Care Provider [phone] Destiny Gonzalez MD Primary Care Provid er Unknown, Unknown Primary Care Provider Zunilda Means Primary Care Prov ider Ca Rosales NP Primary Care Provider [phone] Reason for Referral * Physical Therapy (Routine) - Closed Specialty Diagnoses / Procedures Referred By Carlton tenorio Referred To Contact Physical Therapy Diagnoses Encounter for rehabilitation Zunilda Rojas PA Phone: tel: fax: mailto:[facility] [address] [place] [address] Phone: tel: Referral ID Status Reason Start Date Expiration Date Visits Re quested Visits Authorized [id number] Closed 05/04/2021 05/04/2022 99 99 Encounter Details Date Type Department Care Team (Latest Contact Info) Description 05/04/2021 Transcribe Orders [facility] [address] [place] [address] Zunilda Rojas PA [address] [place] [address] [email or web address] Encounter for rehabilitation (Primary Dx) Social [...] Description 09/13/2025 10:30 AM EST Office Visit [facility] Rheumatology [address] [place] [address] Rola Lyons MD 22 [facility], [address] [place] [address] [email or web address] documented as of this encounter Procedures Procedure Name Priority Date/Time Associated Diagnosis Comments AMB REFERRAL TO [facility] PHYSICAL THERAPY Routine 07/14/2021 12:20 PM EDT Encounter for rehabilitation documented in this encounter Results * Ambulatory referral to [facility] Physical Therapy (07/14/2021 12:20 PM EDT) Other Zunilda RAVI AMB [facility] REFERRALS Edited documented in this encounter Visit [...] imbalance documented in this encounter Care Teams Web Retailer Relationship Specialty Start Date End Date Julian Cooper MD [address] [place] [address] [email or web address] PCP - General Family Medicine 11/29/20 05/07/22 Destiny Gonzalez MD [address] [place] [address] [email or web address] PCP - General Family Medicine 05/08/22 08/09/22 Unknown, Neena, PCP - General 10/29/22 12/04/22 Zunilda Rojas PA jerald PCP - General Physician Head Waiter 12/05/22 10/22/24 Ca Rosales NP [address] [place] [address] PCP - General Nurse Practitioner 10/23/24 Julian Cooper MD [address] [place] [address] [email or web address] Historical LMR Provider 07/28/17 2 Rola Lyons MD 22 [facility], [address] [place] [address] [email or web address] Historical LMR Provider 07/28/17 Abdon Schultz DO [address] [place] [address] Orthopedics & Sports Medicine, [facility] [place] [address] [email or web address] Historical LMR Provider 07/28/17 10/14/21 documented as of this encounter Additional Source Comments The information contained in this document represents components of the legal health record. It is not the complete legal health record.[facility]
--- OUTSIDE RECORDS SUMMARY | 2025-06-24 12:39 | XMS_ITS | Encounter Summary ---
Author Organization [employer] [facility] [facility] Address [address] [place] [address] Phone Care Team Providers Care Decorative Engraver Name Role Phone Rola Lyons MD Unavailable [phone] Zunilda Rojas Primary Care Prov ider Ca Rosales NP Primary Care Provider [phone] Encounter Details Date Type Department Care Team (Late st Contact Info) Description 07/18/2023 Ancillary Orders [address] [id number] Milagros Yuen MD [address] [place] [address] Orthopedics & Sports Medicine, [place], [place] [id number] [email or web address] Left hip pain Social History Tobacco Use [...] high school, GED, job training, learning the Congolese language, technical skills, or developing parenting skills)? [...] [facility] Rheumatology [address] [place] [address] Rola Lyons MD [address] [place] [address] Pending Results Name Type Priority Associated Diagnoses [...] documented as of this encounter Care Teams Decorative Engraver Relationship Specialty Start Date End Date Zunilda Rojas PA [address] [place] [address] [email or web address] PCP - General Physician Hub Borer 12/05/22 10/22/24 Ca Rosales NP [address] [place] [address] PCP - General Nurse Practitioner 10/23/24 Rola Lyons MD [address] [place] [address] [email or web address] Historical LMR Provider 07/28/17 documented as of this encounter Additional Source Comments The information contained in this document represents components of the legal health record. It is not the complete legal health record.[facility]
--- OUTSIDE RECORDS SUMMARY | 2025-06-24 12:39 | XMS_ITS | Encounter Summary ---
Author Organization [employer] [facility] Address [address] [place] [address] Phone Care Team Providers Care Sales Account Manager Name Role Phone Rola Lyons MD Unavailable [phone] Ca Rosales STUDY COORDINATOR Primary Care Provider [phone] Encounter Details Date Type Department Care Team (Late st Contact Info) Description 05/20/2025 Telephone [facility] Family [facility] [address] [place] [address] Augustine Trammell, YVES [address] [place] [address] [email or web address] Social History Tobacco Use Types Packs/Day Years [...] Unable to schedule in bookit. Please contact [email or web address] Support Associate Professor Of Law (Please do not reply to this user; this inbox is not monitored.) Thank you. documented in this encounter Plan of Treatment Upcoming Encounters Date Type Department Care Team (Late st Contact Info) Description 09/13/2025 10:30 AM EST Office Visit [facility] Rheumatology [address] [place] [address] Rola Lynos MD [address] [place] [address] [email or web address] documented as of this encounter Visit Diagnoses Not on filedocumented in this encounter Additional Health Concerns Assessment Noted Time PHQ-2 Depression Total Score: 0 05/08/20 22 8:17 AM EDT documented as of this encounter Care Teams Sales Account Manager Relationship Specialty Start Date End Date Ca Rosales NP [address] [place] [address] PCP - General Nurse Practitioner 10/23/24 Rola Lyons MD [address] [place] [address] [email or web address] Historical LMR Provider 07/28/17 documented as of this encounter Additional Source Comments The information contained in this document represents components of the legal health record. It is not the complete legal health record.[facility]
--- OUTSIDE RECORDS SUMMARY | 2025-06-24 12:39 | XMS_ITS | Encounter Summary ---
Author Organization [employer] [facility] Address [address] [place] [address] Phone Care Team Providers Care Software Quality Assurance Specialist Name Role Phone Rola Lyons MD Unavailable [phone] Ca Rosales NP Primary Care Provider [phone] Encounter Details Date Type Department Care Team (Late st Contact Info) Description 03/11/2025 Procedure Pass [facility], [facility] [address] [place] [address] Social History Tobacco Use Types Packs/Day Years [...] Description 09/13/2025 10:30 AM EST Office Visit [facility] [place] [address] Rola Lyons MD [address] [place] [address], [address] [address] documented as of this encounter Visit Diagnoses Not on filedocumented in this encounter Additional Health Concerns Assessment Noted Time PHQ-2 Depression Total Score: 0 05/08/20 22 8:17 AM EDT documented as of this encounter Care Teams Software Quality Assurance Specialist Relationship Specialty Start Date End Date Ca Rosales NP [address] [place] [address] PCP - General Nurse Practitioner 10/23/24 Rola Lyons MD [address] [place] [address] [email or web address] Historical LMR Provider 07/28/17 documented as of this encounter Additional Source Comments The information contained in this document represents components of the legal health record. It is not the complete legal health record.[facility]
--- OUTSIDE RECORDS SUMMARY | 2025-06-24 12:39 | XMS_ITS | Encounter Summary ---
Author Organization [employer] [facility] Address [address] [place] [address] Phone Care Team Providers Care Cutting Inspector Name Role Phone Rola Lyons MD Unavailable [phone] Ca Rosales NP Primary Care Provider [phone] Encounter Details Date Type Department Care Team (Late st Contact Info) Description 10/23/2024 Procedure Pass [facility] Admitting Dept Virtual Department [address] [place] [address] Social History Tobacco Use Types Packs/Day Years [...] Description 09/13/2025 10:30 AM EST Office [facility] [place] [address] Rola Lyons MD [address] [place] [address], [address] [address] documented as of this encounter Visit Diagnoses Not on filedocumented in this encounter Additional Health Concerns Assessment Noted Time PHQ-2 Depression Total Score: 0 05/08/20 22 8:17 AM EDT documented as of this encounter Care Teams Cutting Inspector Relationship Specialty Start Date End Date Ca Rosales NP [address] [place] [address] PCP - General Nurse Practitioner 10/23/24 Rola Lyons MD [address] [place] [address], [address] [address] [email or web address] Historical LMR Provider 07/28/17 documented as of this encounter Additional Source Comments The information contained in this document represents components of the legal health record. It is not the complete legal health record.[facility]
--- OUTSIDE RECORDS SUMMARY | 2025-06-24 12:39 | XMS_ITS | Encounter Summary ---
Author Organization [employer] [facility] Address [address] [place] [address] Phone Care Team Providers Care Street Commissioner Name Role Phone Rola Lyons MD Unavailable [phone] Zunilda Rojas Primary Care Prov ider Ca Rosales NP Primary Care Provider [phone] Encounter Details Date Type Department Care Team (Latest Contact Info) Description 10/19/2024 Transcribe Orders [facility] [address] [place], [place] [id number] Aletha Harper PA 10 [place], [place] [id number] Constipation, unspecified constipation type (Primary Dx) Social [...] 10/22/2024 1:35 PM Alethea Lr RN * [place] Suicide Severity Rating Scale (Screener/Recent Self-Report) Question [...] Description 09/13/2025 10:30 AM EST Office Visit [facility] Rheumatology [address] [place] [address] Rola Lyons MD [address] [place] [address] [email or web address] documented as of this encounter Visit Diagnoses Diagnosis Constipation, unspecified constipation type- Primary documented in this encounter Additional Health Concerns Assessment Noted Time PHQ-2 Depression Total Score: 0 05/08/20 22 8:17 AM EDT documented as of this encounter Care Teams Street Commissioner Relationship Specialty Start Date End Date Zunilda Rojas PA [address] [place] [address] jerald PCP - General Physician Plant Protection Superintendent 12/05/22 10/22/24 Ca Rosales NP [address] [place] [address] PCP - General Nurse Practitioner 10/23/24 Rola Lyons MD [address] [place] [address], [facility] [address] [place] [address] [email or web address] Historical LMR Provider 07/28/17 documented as of this encounter Additional Source Comments The information contained in this document represents components of the legal health record. It is not the complete legal health record.[facility]
--- OUTSIDE RECORDS SUMMARY | 2025-06-24 12:39 | XMS_ITS | Encounter Summary ---
Author Organization [employer] [facility] Address [address] [place] [address] Phone Care Team Providers Care Senior Java Programmer Analyst Name Role Phone Rola Lyons MD Unavailable [phone] Zunilda Rojas Primary Care Prov ider Ca Rosales NP Primary Care Provider [phone] Encounter Details Date Type Department Care Team (Late st Contact Info) Description 12/28/2022 Procedure Pass [facility], [facility] [address] [place] [address] Social History Tobacco Use Types Packs/Day Years [...] high school, GED, job training, learning the Anguillan language, technical skills, or developing parenting skills)? [...] Visit [facility] Rheumatology [address] [place] [address] Rola Lyons MD 22 [facility], [address] [place] [address] documented as of this encounter Visit Diagnoses Not on filedocumented in this encounter Additional Health Concerns Assessment Noted Time PHQ-2 Depression Total Score: 0 05/08/20 8:17 AM EDT documented as of this encounter Care Teams Senior Java Programmer Analyst Relationship Specialty Start Date End Date Zunilda Rojas PA [address] [place] [address], [address] [address] jerald PCP - General Physician Party Director 12/05/22 10/22/24 Ca Rosales NP [address] [place] [address] PCP - General Nurse Practitioner 10/23/24 Rola Lyons MD [address] [place] [address] [email or web address] Historical LMR Provider 07/28/17 documented as of this encounter Additional Source Comments The information contained in this document represents components of the legal health record. It is not the complete legal health record.[facility]
--- OUTSIDE RECORDS SUMMARY | 2025-06-24 12:39 | XMS_ITS | Encounter Summary ---
Author Organization [employer] [facility] Address [address] [place] [address] Phone Care Team Providers Care Senior Audit Manager Name Role Phone Rola Lyons MD Unavailable [phone] Zunilda Rojas Primary Care Prov ider Ca Rosales NP Primary Care Provider [phone] Encounter Details Date Type Department Care Team (Late st Contact Info) Description 04/04/2023 Procedure Pass [place] Admitting Dept - Virtual Department [address] [place] [address] Social History Tobacco Use Types Packs/Day Years [...] high school, GED, job training, learning the Bhutanese language, technical skills, or developing parenting skills)? [...] [facility] Rheumatology [address] [place] [address] Rola Lyons MD 22 [facility], [address] [place] [address] documented as of this encounter Visit Diagnoses Not on filedocumented in this encounter Additional Health Concerns Assessment Noted Time PHQ-2 Depression Total Score: 0 05/08/20 22 8:17 AM EDT documented as of this encounter Care Teams Senior Audit Manager Relationship Specialty Start Date End Date Zunilda Rojas PA [address] [place] [address], [address] [address] jerald PCP - General Physician Embroiderer 12/05/22 10/22/24 Ca Rosales NP [address] [place] [address] PCP - General Nurse Practitioner 10/23/24 Rola Lyons MD [address] [place] [address], [address] [address] [email or web address] Historical LMR Provider 07/28/17 documented as of this encounter Additional Source Comments The information contained in this document represents components of the legal health record. It is not the complete legal health record.[facility]
--- OUTSIDE RECORDS SUMMARY | 2025-06-24 12:39 | XMS_ITS | Encounter Summary ---
Author Organization [facility] Address [address] [place] [address] Phone Care Team Providers Care Mechanical Systems Designer Name Role Phone Rola Lyons MD Unavailable [phone] Ca Rosales NP Primary Care Provider [phone] Reason for Referral * MRI/CAT Scan - Closed Specialty Diagnoses / Procedures Referred By Contac t Referred To Contact Radiology Diagnoses Cervicalgia Procedures MRI Cervical Spine Ca Rosales NP [address] [place] [address] Phone: tel: fax: Referral ID Status Reason Start Date Expiration Date Visits Re quested Visits Authorized [id number] Closed 03/11/2025 03/11/2026 1 1 Encounter Details Date Type Department Care Team (Latest Contact Info) Description 03/11/2025 Transcribe Orders Virtual Department 30 [place] [address] Ca Rosales NP [address] [place] [address] Cervicalgia (Primary Dx) Social History Tobacco Use [...] Description 09/13/2025 10:30 AM EST Office Visit [facility] Rheumatology [address] [place] [address] Rola Lyons MD [address] [place] [address], [address] [place] [address] [email or web address] documented as of this encounter Results * [...] moderate bilateral C7-T1 foraminal stenosis. Ca Rosales AUTOMOTIVE TITLE CLERK IMG MR XSPECIALTY Final R esult documented in this encounter Visit Diagnoses Diagnosis Cervicalgia- Primary Cervicalgia documented in this encounter Additional Health Concerns Assessment Noted Time PHQ-2 Depression Total Score: 0 05/08/20 8:17 AM EDT documented as of this encounter Care Teams Mechanical Systems Designer Relationship Specialty Start Date End Date Ca Rosales NP [address] [place] [address] PCP - General Nurse Practitioner 10/23/24 Rola Lyons MD [address] [place] [address], [address] [address] [email or web address] Historical LMR Provider 07/28/17 documented as of this encounter Additional Source Comments The information contained in this document represents components of the legal health record. It is not the complete legal health record.[facility]
--- OUTSIDE RECORDS SUMMARY | 2025-06-24 12:39 | XMS_ITS | Encounter Summary ---
Author Organization [employer] [facility] Address [address] [place] [address] Phone Care Team Providers Care Dishing Machine Operator Name Role Phone Rola Lyons MD Unavailable [phone] Zunilda Rojas Primary Care Prov ider Ca Rosales NP Primary Care Provider [phone] Encounter Details Date Type Department Care Team (Late st Contact Info) Description 07/18/2023 Ancillary Orders [facility] Orthopedics & Sports Medicine [address] [place] [address] Milagros Yuen MD [address] [place] [address] Orthopedics & Sports Medicine, [facility] [address] Social History Tobacco Use Types [...] high school, GED, job training, learning the Ang[place] language, technical skills, or developing parenting skills)? [...] 09/13/2025 10:30 AM EST Office Visit [facility] Rheumatology [address] [place] [address] KlRola Schwab MD [address] [place] [address], [address] [address] [email or web address] documented as of this encounter Visit Diagnoses Not on filedocumented in this encounter Additional Health Concerns Assessment Noted Time PHQ-2 Depression Total Score: 0 05/08/20 22 8:17 AM EDT documented as of this encounter Care Teams Dishing Machine Operator Relationship Specialty Start Date End Date Zunilda Rojas PA [address] [place] [address], [address] [address] jerald PCP - General Physician Turret Lathe Set Up Operator 12/05/22 10/22/24 Ca Rosales NP [address] [place] [address] PCP - General Nurse Practitioner 10/23/24 Rola Lyons MD [address] [place] [address], [address] [address] [email or web address] Historical LMR Provider 07/28/17 documented as of this encounter Additional Source Comments The information contained in this document represents components of the legal health record. It is not the complete legal health record.[facility]
--- OUTSIDE RECORDS SUMMARY | 2025-06-24 12:41 | XMS_ITS | Encounter Summary ---
Author Organization [facility] Address [address] [place] [address] Phone Care Team Providers Care Game Operator Name Role Phone Julian Cooper MD Primary Care Provider [phone] Julian Cooper MD Unavailable [phone] Rola Lyons MD Unavailable [phone] Abdon Schultz DO Unavailable [phone] Julian Cooper MD Primary Care Provider [phone] Destiny Gonzalez MD Primary Care Provid er Unknown, Unknown Primary Care Provider Zunilda Means Primary Care Prov ider Ca Rosales NP Primary Care Provider [phone] Encounter Details Date Type Department Care Team (Late st Contact Info) Description 06/25/2019 Prep for Surgery [facility] Orthopedics & Sports Medicine [address] [place] [id number] Rola Vaca MD [address] [place] [address] Orthopedics & Sports Medicine, [facility] [place] [address] [email or web address] Social History Tobacco Use Types Packs/Day Years [...] Description 09/13/2025 10:30 AM EST Office Visit [facility] Rheumatology [address] [place] [address] Rola Lyons MD 22 [facility], [address] [place] [address] [email or web address] documented as of this encounter Visit Diagnoses Not on filedocumented in this encounter Care Teams Game Operator Relationship Specialty Start Date End Date Julian Cooper MD [address] [place] [address] [email or web address] PCP - General 07/25/17 11/28/20 Julian Cooper MD [address] [place] [address] [email or web address] PCP - General Family Medicine 11/29/20 05/07/22 Destiny Gonzalez MD [address] [place] [address] [place] [address] [email or web address] PCP - General Family Medicine 05/08/22 08/09/22 Unknown, MD Neena PCP - General 10/29/22 12/04/22 Zunilda Rojas PA jerald PCP - General Physician Denture Model Maker 12/05/22 10/22/24 Ca Rosales NP [address] [place] [address] PCP - General Nurse Practitioner 10/23/24 Julian Cooper MD [address] [place] [address] [email or web address] Historical LMR Provider 07/28/17 2 Rola Lyons MD 22 [facility], [address] [place] [address] Historical LMR Provider 07/28/17 Abdon Schultz DO [address] [place] [address] Orthopedics & Sports Medicine, [facility] [place] [address] Historical LMR Provider 07/28/17 10/14/21 documented as of this encounter Additional Source Comments The information contained in this document represents components of the legal health record. It is not the complete legal health record.[facility]
--- OUTSIDE RECORDS SUMMARY | 2025-06-24 12:41 | XMS_ITS | Encounter Summary ---
Author Organization [facility] Address [address] [place] [address] Phone Care Team Providers Care Tire Mechanic Name Role Phone Julian Cooper MD Primary Care Provider [phone] Julian Cooper MD Unavailable [phone] Rola Lyons MD Unavailable [phone] Abdon Schultz DO Unavailable [phone] Julian Cooper MD Primary Care Provider [phone] Destiny Gonzalez MD Primary Care Provid er Unknown, Unknown Primary Care Provider Zunilda Means Primary Care Prov ider Ca Rosales NP Primary Care Provider [phone] Encounter Details Date Type Department Care Team (Late st Contact Info) Description 07/08/2019 Procedure Pass [place] Admitting Dept - Virtual Department 30 [place] [address] Social History Tobacco Use Types Packs/Day Years [...] Description 09/13/2025 10:30 AM EST Office Visit [facility] Rheumatology [address] [place] [address] Rola Lyons MD 22 [facility], [address] [place] [address] [email or web address] documented as of this encounter Visit Diagnoses Not on filedocumented in this encounter Care Teams Tire Mechanic Relationship Specialty Start Date End Date Julian Cooper MD [address] [place] [address] [email or web address] PCP - General 07/25/17 11/28/20 Julian Cooper MD [address] [place] [address] [email or web address] PCP - General Family Medicine 11/29/20 05/07/22 Destiny Gonzalez MD 22 [facility] [place] [address] [place] [address] [email or web address] PCP - General Family Medicine 05/08/22 08/09/22 Unknown, Neena, PCP - General 10/29/22 12/04/22 Zunilda Rojas PA jerald PCP - General Physician Iron Worker Apprentice 12/05/22 10/22/24 Ca Rosales NP [address] [place] [address] PCP - General Nurse Practitioner 10/23/24 Julian Cooper MD [address] [place] [address] [email or web address] Historical LMR Provider 07/28/17 2 Rola Lyons MD [address] [place] [address], [address] [place] [address] Historical LMR Provider 07/28/17 Abdon Schultz DO [address] [place] [address] Orthopedics & Sports Medicine, [place] [address] Historical LMR Provider 07/28/17 10/14/21 documented as of this encounter Additional Source Comments The information contained in this document represents components of the legal health record. It is not the complete legal health record.[facility]
--- OUTSIDE RECORDS SUMMARY | 2025-06-24 12:41 | XMS_ITS | Encounter Summary ---
Author Organization [facility] Address [address] [place] [address] Phone Care Team Providers Care Flaker Tender Name Role Phone Julian Cooper MD Primary Care Provider [phone] Julian Cooper MD Unavailable [phone] Rola Lyons MD Unavailable [phone] Abdon Schultz DO Unavailable [phone] Julian Cooper MD Primary Care Provider [phone] Destiny Gonzalez MD Primary Care Provid er Unknown, Unknown Primary Care Provider Zunilda Means Primary Care Prov ider Ca Rosales NP Primary Care Provider [phone] Reason for Referral * Physical Therapy (Routine) - Closed Specialty Diagnoses / Procedures Referred By Contac t Referred To Contact Physical Therapy Diagnoses Encounter for rehabilitation Zunilda Rojas PA Phone: tel: fax: mailto:[email or web address] [address] [place] [address] Phone: tel: Referral ID Status Reason Start Date Expiration Date Visits Re quested Visits Authorized [id number] Closed 09/09/2019 09/09/2020 99 99 Encounter Details Date Type Department Care Team (Latest Contact Info) Description 09/09/2019 Transcribe Orders [facility] Services [address] [place] [address] Zunilda Rojas PA [address] [place] [address] [email or web address] Encounter for rehabilitation (Primary Dx) Social History [...] 09/13/2025 10:30 AM EST Office Visit [facility] Rheumatology [address] [place] [address] Rola Lyons MD 22 [facility], [address] [place] [address] documented as of this encounter Procedures Procedure Name Priority Date/Time Associated Diagnosis Comments AMB REFERRAL TO [facility] PHYSICAL THERAPY Routine 10/02/2019 2:41 PM EST Encounter for rehabilitation documented in this encounter Results * Ambulatory referral to [facility] Physical Therapy (10/02/2019 2:41 PM EST) Result [facility] Zunilda [facility] REF[facility] Final Result documented in this encounter Visit Diagnoses Diagnosis Encounter for rehabilitation- Primary documented in this encounter Care Teams Flaker Tender Relationship Specialty Start Date End Date Julian Cooper MD [address] [place] [address] [email or web address] PCP - General 07/25/17 11/28/20 Julian Cooper MD [address] [place] [address] [email or web address] PCP - General Family Medicine 11/29/20 05/07/22 Destiny Gonzalez MD [address] [place] [address] [email or web address] PCP - General Family Medicine 05/08/22 08/09/22 Unknown, MD Neena PCP - General 10/29/22 12/04/22 Zunilda Rojas PA jerald PCP - General Physician Maintenance Technician 3Rd Shift 12/05/22 10/22/24 Ca Rosales NP [address] [place] [address] PCP - General Nurse Practitioner 10/23/24 Julian Cooper MD [address] [place] [address] [email or web address] Historical LMR Provider 07/28/17 2 Rola Lyons MD 22 [facility], [address] [place] [address] [email or web address] Historical LMR Provider 07/28/17 Abdon Schultz DO [address] [place] [address] Orthopedics & Sports Medicine, [place] [address] [email or web address] Historical LMR Provider 07/28/17 10/14/21 documented as of this encounter Additional Source Comments The information contained in this document represents components of the legal health record. It is not the complete legal health record.[facility]
== END 2025-06-24 11:35 | disposition home or self-care (01) ==
LOC: HO.HNS 10:34
PROVIDERS: Visit Provider Physician Assistant
DX: R20.0 Anesthesia of skin (principal)
CPT/HCPCS: 99213

== ENCOUNTER 2025-07-28 10:27 | Outpatient (AMB) | payer OTHER, MEDICAID, SELFPAY ==
--- NOTE | 2025-07-28 10:35 | MHC.OFFVIS ---
Vital Signs 07/28/25 10:37 Height 5 ft 2 in Weight 163 lb 6 oz BMI 29.9 BP 112/70 Blood Pressure Location Rt brachial Position Sitting Pulse 78 Pulse Source Pulse Oximeter Pulse Oximetry (%) 96 Oxygen Delivery Method Room Air Intake Visit Reasons: INP-Anesthesia of skin Intake Note: Anesthesia of skin Director Of Pupil Personnel Program Required: No Accompanied by: Self / Same As Patient Allergies clarithromycin (From Biaxin) Allergy (Mild, Verified 07/28/25 10:35) Unknown morphine Allergy (Mild, Verified 07/28/25 10:35) Rash Medication List - Last Reconciled 07/28/25 by Anel Abreu MD albuterol sulfate 90 mcg/actuation 1 - 2 puffs inhalation Q4-6H PRN albuterol sulfate 2.5 mg inhalation QID ascorbic acid (vitamin C) (Vitamin C) 500 mg PO DAILY lkdjgbooxj-bdrhvvfwawwxc-jxpb 50-325-40 mg 1 tab PO Q4H PRN cyclobenzaprine 10 mg PO BID PRN cyclosporine 0.05% (Restasis) 1 drp ophthalmic (eye) Q12H diclofenac sodium 75 mg PO BID PRN ergocalciferol (vitamin D2) 1,250 mcg PO QWEEK esomeprazole magnesium 20 mg PO DAILY fluticasone propionate 220 mcg/actuation 2 puffs inhalation BID fluticasone propionate 50 mcg/actuation (Flonase Allergy Relief) 1 spray intranasal DAILY gabapentin 900 mg PO DAILY hydrocortisone acetate 10%(80mg) (Cortifoam) 1 appful IN BEDTIME ibuprofen 200 mg PO Q6H PRN levothyroxine 50 mcg PO DAILY loratadine 10 mg PO DAILY ondansetron HCl 4 mg PO Q8H plecanatide (Trulance) 3 mg PO DAILY triamcinolone acetonide 0.5% appl topical BID HPI Comments Details: 64y/o with cervical spondylosis comes for evaluation of sensory change sin his radha UE. She is under care of neurospine C3-5 ACDF in 2018 and artificial disc C5-C6. she also had carpal tunnel surgery on her Right wrist 2018 . About 1 year ago she started having neck pain , sometimes radiating to her right shoulder. she also has daily headaches C spine X ray showed-ACDF C3-C5. Prosthetic disc C5-6. No sign of instability. she reports tingling in radha hands and numbness EMG shows severe left median neuropathy , no evidence of cervical radicuopathy. EMG -This is an abnormal study. 2. There is electrodiagnostic evidence for left moderate-severe median neuropathy at the wrist, consistent with carpal tunnel syndrome. 3. There is no electrodiagnostic evidence for ulnar neuropathy, brachial plexopathy, or cervical radiculopathy. 4. There is no evidence of right Carpal Tunnel Syndrome, status post CTR 2019. she reports residual intermittent pain since her CTS surgery in 2019 on the right. She also has daily headaches - mostly in the right temporal region with photophobia, phonophobia , nausea . she used to have migraines when young she denies aura she has 3-4 headaches a week and treats with fioricet. [facility] Medical History (Updated 07/28/25 @ 11:32 by Anel Abreu MD) Chronic migraine without aura Right hand pain Right hand weakness Left carpal tunnel syndrome Derangement of left shoulder joint Calcific tendinitis of shoulder Multilevel cervical spondylosis without myelopathy Rheumatoid arthritis Eczema Gastrointestinal hemorrhage GERD (gastroesophageal reflux disease) Mild persistent asthma Allergic rhinitis Migraine Insomnia Persistent insomnia Recurrent major depressive episodes Iron deficiency anemia Familial hypercholesteremia Hypothyroidism Surgical History History of cervical discectomy History of abdominoplasty History of carpal tunnel surgery H/O total hysterectomy Family History Sister Malignant tumor of breast Daughter Malignant lymphoma of thyroid gland H/O thyroidectomy Mother Rheumatoid arthritis HTN (hypertension) Father HTN (hypertension) Hyperlipidemia PAD (peripheral artery disease) Social History Household Members: Spouse Patient Tobacco Use Status: Never used Tobacco Use of substances other than those prescribed or required for medical reasons: No Advance Directives: No Physical Exam Vital Signs: Last Vital Signs Pulse 78 07/28/25 10:37 BP 112/70 07/28/25 10:37 Pulse Ox 96 07/28/25 10:37 Oxygen Delivery Method Room Air 07/28/25 10:37 BMI result Body Mass Index 29.9 Const Orientation/consciousness: patient oriented x3 Eyes Pupils: Equal, round and reactive pupils present Neuro Other: Mild weakness of right hand vertica architect Pain in right wrist and right shoulder General: patient oriented x3, tone normal and moves all extremities Cranial nerves: Yes Facial sensation intact/muscles of mastication intact, Yes Equal, round and reactive pupils present, Yes Bilaterally intact EOM present, Yes Nystagmus not present, Yes Normal facial strength present, Yes Midline tongue present and Yes Ability to bilaterally elevate shoulders present Cognition (Neuro): normal cognition Gait exam (Neuro): Normal gait present Motor exam (neuro): 5/5 motor strength present throughout and Normal motor muscle tone present throughout Deep tendon reflexes (DTR's): Right triceps reflex intensity grade: 1+, Left triceps reflex intensity grade: 1+, Rt Biceps (C5, C6): 1+, Left biceps reflex intensity grade: 1+, Right brachioradialis reflex intensity grade: 1+, Left brachioradialis reflex intensity grade: 1+, Right patellar reflex intensity grade: 1+ and Left patellar reflex intensity grade: 1+ Coordination: [id number] test normal Assessment & Plan Assessment & Plan (1) Left carpal tunnel syndrome: Code(s): G56.02 - Carpal tunnel syndrome, left upper limb Category: Medical (2) Right hand weakness: Comment: resiudla from carpal tunnel and cervical myelopathy Code(s): R29.898 - Other symptoms and signs involving the musculoskeletal system Category: Medical (3) Right hand pain: Comment: ? Reflex sympathetic dystrophy with sensory findings ? cervical spondylosis Code(s): M79.641 - Pain in right hand Category: Medical (4) Chronic migraine without aura: Code(s): G43.709 - Chronic migraine without aura, not intractable, without status migrainosus Category: Medical Plan Hand surgery for left Carpal tunnel Reviewed EMG report MRI report form Maritza Ritchie Consider sleep study AMitriptyline 25 mg qhs Magnesium 400mg qhs Gabapentin 900 mg qhs Fioricet as needed Sumatriptan 50mg as needed - 1tab at onset and repeat in 2 hrs if needed max 200mg /day In the past she has tried Propranolol- syncope Topiramate - did not help Sumatriptan Rizatriptan Orders: Referrals Hand Surgery Referral G56.02 - Carpal tunnel syndrome, left upper limb Medications: New sumatriptan succinate take 1 tab at onset of headache; if no relief may repeat 1 tab after at least 2 hrs; max = 4 tabs/24 hr PO 14 tabs 6RF amitriptyline 25 mg PO BEDTIME 30 tabs 6RF Coding Level of Care Code New Pt Level 4 (00227) Complex EM visit Add On G2211 Diagnoses Left carpal tunnel syndrome G56.02 Right hand weakness R29.898 Right hand pain M79.641 Chronic migraine without aura G43.709
[2025-07-28 10:37] VITALS: BP 112/70; PULSE 78; O2SAT 96; BMI 29.9
== END 2025-07-28 11:54 | disposition home or self-care (01) ==
LOC: HO.HSMS 10:28
PROVIDERS: Visit Provider Psychiatry & Neurology Neurology
DX: G56.02 Carpal tunnel syndrome, left upper limb (principal); R29.898 Other symptoms and signs involving the musculoskeletal system; M79.641 Pain in right hand; G43.709 Chronic migraine without aura, not intractable, without status migrainosus
CPT/HCPCS: 99204

== ENCOUNTER 2025-10-01 10:17 | Outpatient (AMB) | payer OTHER, MEDICAID, SELFPAY ==
--- OUTSIDE RECORDS SUMMARY | 2025-10-01 10:20 | XMS_ITS | Encounter Summary ---
Author Organization [facility] Address [address] [place] [address] Phone Care Team Providers Care Director Dietetics Department Name Role Phone Rola Lyons MD Unavailable Zunilda Rojas Primary Care Prov ider Ca Rosales NP Primary Care Provider [phone] Reason for Referral * Outpatient Procedure - Closed Specialty Diagnoses / Procedures Referred By Carlton tenorio Referred To Contact Radiology Diagnoses Constipation, unspecified constipation type Epigastric abdominal pain LUQ abdominal pain Nausea Procedures NM Gastric Emptying Cary Johnson PA Phone: tel: fax: [email or web address] Referral ID Status Reason Start Date Expiration Date Visits Re quested Visits Authorized [id number] Closed 08/13/2023 08/12/2024 1 1 Encounter Details Date Type Department Care Team (Late st Contact Info) Description 08/13/2023 Transcribe Orders Virtual Department [address] [place] [address] Cary Johnson PA [address] [place] [address] [email or web address] Constipation, unspecified constipation type (Primary Dx); Epigastric [...] high school, GED, job training, learning the Pashto language, technical skills, or developing parenting skills)? [...] Care Team (Late st Contact Info) Description 10/15/2025 4:30 PM EST Office Visit [facility]ology [facility] [address] [place] [address] Rola Lyons MD 22 [facility], [address] [place] [address] [email or web address] documented as of this encounter Results * [...] or greater of the standard meal (PMID: [id number]) and approximate the normative emptying values of EnsurePlus (PMID: [id number]). Procedure Note Karen Gupta MD - 09/05/2023 [...] 50% or greater of the standard meal(PMID: [id number]) and approximate the normative emptying values ofEnsurePlus (PMID: [id number]). IMPRESSION: Gastric emptying study within normal limits. [...] documented as of this encounter Care Teams Director Dietetics Department Relationship Specialty Start Date End Date Zunilda Rojas PA [address] [place] [address] jerald PCP - General Physician Hydrochloric Acid Operator 12/05/22 10/22/24 Ca Rosales NP [address] [place] [address] PCP - General Nurse Practitioner 10/23/24 Rola Lyons MD [address] [place] [address], [facility] [address] [place] [address] [email or web address] Historical LMR Provider 07/28/17 documented as of this encounter Additional Source Comments The information contained in this document represents components of the legal health record. It is not the complete legal health record.[facility]
--- OUTSIDE RECORDS SUMMARY | 2025-10-01 10:20 | XMS_ITS | Encounter Summary ---
Author Organization [employer] [facility] Address [address] [place] [address] Phone Care Team Providers Care Pattern Illustrator Name Role Phone Rola Lyons MD Unavailable [phone] Zunilda Rojas Primary Care Prov ider Ca Rosales NP Primary Care Provider [phone] Encounter Details Date Type Department Care Team (Late st Contact Info) Description 08/05/2023 Procedure Pass [facility], Ct Scan - [facility] [address] [place] [address] Social History Tobacco Use Types Packs/Day Years [...] high school, GED, job training, learning the Slovak language, technical skills, or developing parenting skills)? [...] Description 10/15/2025 4:30 PM EST Office Visit [facility] Rhe[facility]ology Clinic [address] [place] [address] Rola Lyons MD 22 [facility], [address] [place] [address] [email or web address] documented as of this encounter Visit Diagnoses Not on filedocumented in this encounter Additional Health Concerns Assessment Noted Time PHQ-2 Depression Total Score: 0 05/08/20 22 8:17 AM EDT documented as of this encounter Care Teams Pattern Illustrator Relationship Specialty Start Date End Date Zunilda Rojas PA [address] [place] [address] jerald PCP - General Physician Spooling Supervisor 12/05/22 10/22/24 Ca Rosales NP [address] [place] [address] PCP - General Nurse Practitioner 10/23/24 Rola Lyons MD [address] [place] [address], [address] [place] [address] [email or web address] Historical LMR Provider 07/28/17 documented as of this encounter Additional Source Comments The information contained in this document represents components of the legal health record. It is not the complete legal health record.[facility]
--- OUTSIDE RECORDS SUMMARY | 2025-10-01 10:21 | XMS_ITS | Encounter Summary ---
Author Organization [facility] Address [address] [place] [address] Phone Care Team Providers Care Carpenter Form Name Role Phone Rola Lyons MD Unavailable [phone] Ca Rosales NP Primary Care Provider [phone] Encounter Details Date Type Department Care Team (Late st Contact Info) Description 03/11/2025 Procedure Pass [facility], [facility] [address] [place] [address] Social History Tobacco Use Types Packs/Day Years [...] Description 10/15/2025 4:30 PM EST Office Visit [facility] [place] [address] oRla Lyons MD [address] [place] [address] [email or web address] documented as of this encounter Visit Diagnoses Not on filedocumented in this encounter Additional Health Concerns Assessment Noted Time PHQ-2 Depression Total Score: 0 05/08/20 8:17 AM EDT documented as of this encounter Care Teams Carpenter Form Relationship Specialty Start Date End Date Ca Rosales NP [address] [place] [address] PCP - General Nurse Practitioner 10/23/24 Rola Lyons MD [address] [place] [address] [email or web address] Historical LMR Provider 07/28/17 documented as of this encounter Additional Source Comments The information contained in this document represents components of the legal health record. It is not the complete legal health record.[facility]
--- OUTSIDE RECORDS SUMMARY | 2025-10-01 10:21 | XMS_ITS | Encounter Summary ---
Author Organization [employer] [facility] Address [address] [place] [address] Phone Care Team Providers Care Physician Practice Manager Name Role Phone Rola Lyons MD Unavailable [phone] Zunilda Rojas Primary Care Prov ider Ca Rosales NP Primary Care Provider [phone] Encounter Details Date Type Department Care Team (Latest Contact Info) Description 10/19/2024 Transcribe Orders [facility] Ana Rosa [address] [place], [place] [id number] Aletha Harper PA [address] [place], [place] [id number] Constipation, unspecified constipation type (Primary Dx) Social [...] Description 10/15/2025 4:30 PM EST Office Visit [facility] [place] [address] Rola Lyons MD 22 [facility], [address] [address] [email or web address] documented as of this encounter Visit Diagnoses Diagnosis Constipation, unspecified constipation type- Primary documented in this encounter Additional Health Concerns Assessment Noted Time PHQ-2 Depression Total Score: 0 05/08/20 22 8:17 AM EDT documented as of this encounter Care Teams Physician Practice Manager Relationship Specialty Start Date End Date Zunilda Rojas PA [address] [place] [address] jerald PCP - General Physician Production Technician 12/05/22 10/22/24 Ca Rosales NP [address] [place] [address] PCP - General Nurse Practitioner 10/23/24 Rola Lyons MD [address] [place] [address], [address] [address] Historical LMR Provider 07/28/17 documented as of this encounter Additional Source Comments The information contained in this document represents components of the legal health record. It is not the complete legal health record.[facility]
--- OUTSIDE RECORDS SUMMARY | 2025-10-01 10:21 | XMS_ITS | Encounter Summary ---
Author Organization [employer] [facility] Address [address] [place] [address] Phone Care Team Providers Care Director [employer] Name Role Phone Rola Lyons MD Unavailable [phone] Zunilda Rojas Primary Care Prov ider Ca Rosales NP Primary Care Provider [phone] Encounter Details Date Type Department Care Team (Late st Contact Info) Description 04/04/2023 Procedure Pass [place] Admitting Dept - Virtual Department [address] [place] [address] Social History Tobacco Use Types Packs/Day Years [...] Description 10/15/2025 4:30 PM EST Office Visit [facility] Rheumatology Clinic [address] [place] [address] Rola Lyons MD 22 [facility], [address] [place] [address] [email or web address] documented as of this encounter Visit Diagnoses Not on filedocumented in this encounter Additional Health Concerns Assessment Noted Time PHQ-2 Depression Total Score: 0 05/08/20 22 8:17 AM EDT documented as of this encounter Care Teams Director [employer] Relationship Specialty Start Date End Date Zunilda Rojas PA [address] [place] [address] jerald PCP - General Physician General Education Instructor 12/05/22 10/22/24 Ca Rosales NP [address] [place] [address] PCP - General Nurse Practitioner 10/23/24 Rola Lyons MD [address] [place] [address], [facility] [address] [place] [address] [email or web address] Historical LMR Provider 07/28/17 documented as of this encounter Additional Source Comments The information contained in this document represents components of the legal health record. It is not the complete legal health record.[facility]
--- OUTSIDE RECORDS SUMMARY | 2025-10-01 10:21 | XMS_ITS | Encounter Summary ---
Author Organization [facility] Address [address] [place] [address] Phone Care Team Providers Care Supervising Librarian Name Role Phone Julian Cooper MD Primary Care Provider Julian Cooper MD Unavailable [phone] Rola Lyons MD Unavailable [phone] Abdon Schultz DO Unavailable [phone] Julian Cooper MD Primary Care Provider [phone] Destiny Gonzalez MD Primary Care Provid er Unknown, Unknown Primary Care Provider Zunilda Means Primary Care Prov ider Ca Rosales NP Primary Care Provider [phone] Encounter Details Date Type Department Care Team (Late st Contact Info) Description 02/26/2018 Procedure Pass [facility] Endoscopy Admitting Dept Virtual Department [address] [place] [address] Social History Tobacco Use Types Packs/Day Years [...] Upcoming Encounters Date Type Department Care Team ([facility] st Contact Info) Description 10/15/2025 4:30 PM EST Office Visit [facility] Rheumatology Clinic [address] [place] [address] Rola Lyons MD 22 [facility], [address] [place] [address] [email or web address] documented as of this encounter Visit Diagnoses Not on filedocumented in this encounter Care Teams Supervising Librarian Relationship Specialty Start Date End Date Julian Cooper MD [address] [place] [address] [email or web address] PCP - General 07/25/17 11/28/20 Julian Cooper MD [address] [place] [address] [email or web address] PCP - General Family Medicine 11/29/20 05/07/22 Destiny Gonzalez MD 22 [facility] [address] [place] [address] [email or web address] PCP - General Family Medicine 05/08/22 08/09/22 Unknown, MD Neena PCP - General 10/29/22 12/04/22 Zunilda Rojas PA [address] [place] [address] jerald PCP - General Physician Veterinary Technology Instructor 12/05/22 10/22/24 Ca Rosales NP [address] [place] [address] PCP - General Nurse Practitioner 10/23/24 Julian Cooper MD [address] [place] [address] [email or web address] Historical LMR Provider 07/28/17 2 Rola Lyons MD [address] [place] [address], [facility] [address] [place] [address] Historical LMR Provider 07/28/17 Abdon Schultz DO [address] [place] [address] Orthopedics & Sports Medicine, [facility] [place] [address] Historical LMR Provider 07/28/17 10/14/21 documented as of this encounter Additional Source Comments The information contained in this document represents components of the legal health record. It is not the complete legal health record.[facility]
--- OUTSIDE RECORDS SUMMARY | 2025-10-01 10:21 | XMS_ITS | Encounter Summary ---
Author Organization [employer] [facility] Address [address] [place] [address] Phone Care Team Providers Care Big Data Solutions Architect Name Role Phone Rola Lyons MD Unavailable [phone] Zunilda Rojas Primary Care Prov ider Ca Rosales NP Primary Care Provider [phone] Encounter Details Date Type Department Care Team (Late st Contact Info) Description 12/28/2022 Procedure Pass [facility], [facility] [address] [place] [address] Social History Tobacco Use Types Packs/Day Years [...] high school, GED, job training, learning the Luxembourgish language, technical skills, or developing parenting skills)? [...] Description 10/15/2025 4:30 PM EST Office Visit [facility] Rhe[place] [address] Rola Lyons MD 22 [facility], [address] [place] [address] [email or web address] documented as of this encounter Visit Diagnoses Not on filedocumented in this encounter Additional Health Concerns Assessment Noted Time PHQ-2 Depression Total Score: 0 05/08/20 8:17 AM EDT documented as of this encounter Care Teams Big Data Solutions Architect Relationship Specialty Start Date End Date Zunilda Rojas PA [address] [place] [address] jerald PCP - General Physician Card Brusher 12/05/22 10/22/24 Ca Rosales NP [address] [place] [address] PCP - General Nurse Practitioner 10/23/24 Rola Lyons MD [address] [place] [address], [facility] [address] [place] [address] [email or web address] Historical LMR Provider 07/28/17 documented as of this encounter Additional Source Comments The information contained in this document represents components of the legal health record. It is not the complete legal health record.[facility]
--- OUTSIDE RECORDS SUMMARY | 2025-10-01 10:21 | XMS_ITS | Encounter Summary ---
Author Organization [facility] Address [address] [place] [address] Phone Care Team Providers Care Manager Publishing Name Role Phone Rola Lyons MD Unavailable [phone] Ca Rosales NP Primary Care Provider [phone] Reason for Visit * Reason Comments Medication Refill Encounter Details Date Type Department Care Team (Late st Contact Info) Description 09/30/2025 Refill [facility]ology [facility] [address] [place] [address] lAetha Harper PA-C [address] [address] [email or web address] Medication Refill Social History Tobacco Use Types Packs/Day Years [...] as of this encounter Progress Notes * Maureen Esparza MA - 10/01/2025 10:11 AM EST Visit Info Last visit: 10/19/2024 > Requested f/u: Not specified Upcoming visit: None ACTIONS TAKEN BY Maureen Esparza MA Gastrointestinal Rx Protocol (H2 blockers, PPIs, stool softeners, laxatives) - esomeprazole magnesium Criteria not met; renew for up to 3 months. Visit in the past 24 months: No documented in this encounter Plan of Treatment Upcoming Encounters Date Type Department Care Team (Late st Contact Info) Description 10/15/2025 4:30 PM EST Office Visit [facility] [place] [address] Rola Lyons MD [address] [place] [address] [email or web address] documented as of this encounter Visit Diagnoses Diagnosis Gastroesophageal reflux disease- Primary Esophageal reflux documented in this encounter Additional Health Concerns Assessment Noted Time PHQ-2 Depression Total Score: 0 05/08/20 22 8:17 AM EDT documented as of this encounter Care Teams Manager Publishing Relationship Specialty Start Date End Date Ca Rosales NP [address] [place] [address] PCP - General Nurse Practitioner 10/23/24 Rola Lyons MD [address] [place] [address], [address] [address] [email or web address] Historical LMR Provider 07/28/17 documented as of this encounter Additional Source Comments The information contained in this document represents components of the legal health record. It is not the complete legal health record.[facility]
--- OUTSIDE RECORDS SUMMARY | 2025-10-01 10:21 | XMS_ITS | Encounter Summary ---
Author Organization [facility] Address [address] [place] [address] Phone Care Team Providers Care Rustic Fence Builder Name Role Phone Julian Cooper MD Primary Care Provider Julian Cooper MD Unavailable [phone] Rola Lyons MD Unavailable Abdon Schultz DO Unavailable [phone] Julian Cooper MD Primary Care Provider [phone] Destiny Gonzalez MD Primary Care Provid er Unknown, Unknown Primary Care Provider Zunilda Means Primary Care Prov ider Ca Rosales NP Primary Care Provider [phone] Encounter Details Date Type Department Care Team (Late st Contact Info) Description 01/28/2019 Ancillary Orders [facility],Outside Imaging [address] [place] [address] System, Provider Not In, [facility] [address] [address] Social History Tobacco Use Types Packs/Day Years [...] Description 10/15/2025 4:30 PM EST Office Visit [facility] Rhe[facility]ology Clinic [address] [place] [address] Rola Lyons MD [address] [place] [address], [address] [place] [address] [email or web address] documented as of this encounter Results [...] on filedocumented in this encounter Care Teams Rustic Fence Builder Relationship Specialty Start Date End Date Julian Cooper MD [address] [place] [address] [email or web address] PCP - General 07/25/17 11/28/20 Julian Cooper MD [address] [place] [address] [email or web address] PCP - General Family Medicine 11/29/20 05/07/22 Destiny Gonzalez MD 22 [facility] [address] [place] [address] [email or web address] PCP - General Family Medicine 05/08/22 08/09/22 Unknown, Unknown, PCP - General 10/29/22 12/04/22 Zunilda Rojas PA [address] [place] [address] jerald PCP - General Physician Cable Wirer 12/05/22 10/22/24 Ca Rosales NP [address] [place] [address] PCP - General Nurse Practitioner 10/23/24 Julian Cooper MD [address] [place] [address] [email or web address] Historical LMR Provider 07/28/17 2 Rola Lyons MD [address] [facility], [address] [place] [address] Historical LMR Provider 07/28/17 Abdon Schultz DO [address] [place] [address] Orthopedics & Sports Medicine, [place] [address] Historical LMR Provider 07/28/17 10/14/21 documented as of this encounter Additional Source Comments The information contained in this document represents components of the legal health record. It is not the complete legal health record.[facility]
--- OUTSIDE RECORDS SUMMARY | 2025-10-01 10:21 | XMS_ITS | Encounter Summary ---
Author Organization [facility] Address [address] [place] [address] Phone Care Team Providers Care Counter Stitcher Name Role Phone Rola Lyons MD Unavailable [phone] Ca Rosales NP Primary Care Provider [phone] Reason for Referral * MRI/CAT Scan - Closed Specialty Diagnoses / Procedures Referred By Contac t Referred To Contact Radiology Diagnoses Cervicalgia Procedures MRI Cervical Spine Ca Rosales NP [address] [place] [address] Phone: tel: fax: Referral ID Status Reason Start Date Expiration Date Visits Re quested Visits Authorized [id number] Closed 03/11/2025 03/11/2026 1 1 Encounter Details Date Type Department Care Team (Latest Contact Info) Description 03/11/2025 Transcribe Orders Virtual Department [address] [place] [address] Ca Rosales NP [address] [place] [address] Cervicalgia (Primary Dx) Social History Tobacco Use [...] Description 10/15/2025 4:30 PM EST Office Visit [facility] Rheumatology Clinic [address] [place] [address] Rola Lyons MD [address] [place] [address], [address] [place] [address] [email or web address] documented as of this encounter Results [...] bilateral C7-T1 foraminal stenosis. us Ca Rosales SOFTWARE DEVELOPMENT TEST ENGINEER IMG MR XSPECIALTY Final R esult documented in this encounter Visit Diagnoses Diagnosis Cervicalgia- Primary Cervicalgia documented in this encounter Additional Health Concerns Assessment Noted Time PHQ-2 Depression Total Score: 0 05/08/20 22 8:17 AM EDT documented as of this encounter Care Teams Counter Stitcher Relationship Specialty Start Date End Date Ca Rosales, [facility] [address] [place] [address] PCP - General Nurse Practitioner 10/23/24 Rola Lyons MD [address] [place] [address], [facility] [address] [place] [address] [email or web address] Historical LMR Provider 07/28/17 documented as of this encounter Additional Source Comments The information contained in this document represents components of the legal health record. It is not the complete legal health record.[facility]
--- OUTSIDE RECORDS SUMMARY | 2025-10-01 10:21 | XMS_ITS | Encounter Summary ---
Author Organization [facility] Address [address] [place] [address] Phone Care Team Providers Care Income Tax Auditor Name Role Phone Julian Cooper MD Unavailable [phone] Rola Lyons MD Unavailable [phone] Abdon Schultz DO Unavailable [phone] Julian Cooper MD Primary Care Provider [phone] Destiny Gonzalez MD Primary Care Provid er Unknown, Unknown Primary Care Provider Zunilda Means Primary Care Prov ider Ca Rosales NP Primary Care Provider [phone] Reason for Referral * Physical Therapy (Routine) - Closed Specialty Diagnoses / Procedures Referred By Carlton tenorio Referred To Contact Physical Therapy Diagnoses Encounter for rehabilitation Zunilda Rojas PA Phone: tel: fax: mailto:[facility] [address] [place] [address] Phone: tel: Referral ID Status Reason Start Date Expiration Date Visits Re quested Visits Authorized [id number] Closed 05/04/2021 05/04/2022 99 99 Encounter Details Date Type Department Care Team (Late Contact Info) Description 05/04/2021 Transcribe Orders [facility] Physical Therapy Clinic [address] [place] [address] Zunilda Rojas PA [address] [place] [address] [email or web address] Encounter for rehabilitation (Primary Dx) Social History [...] Encounters Date Type Department Care Team (Late Contact Info) Description 10/15/2025 4:30 PM EST Office Visit [facility] Rheumatology Clinic [address] [place] [address] Rola Lyons MD [address] [facility], [address] [place] [address] [email or web address] documented as of this encounter Procedures Procedure Name Priority Date/Time Associated Diagnosis Comments AMB REFERRAL TO [facility] PHYSICAL THERAPY Routine 07/14/2021 12:20 PM EDT Encounter for rehabilitation documented in this encounter Results * Ambulatory referral to [facility] Physical Therapy (07/14/2021 12:20 PM EDT) Other Zunilda RAVI AMB [facility] REFERRALS Edited documented in this encounter Visit [...] imbalance documented in this encounter Care Teams Income Tax Auditor Relationship Specialty Start Date End Date Julian Cooper MD [address] [place] [address] [email or web address] PCP - General Family Medicine 11/29/20 05/07/22 Destiny Gonzalez MD [address] [place] [address] PCP - General Family Medicine 05/08/22 08/09/22 Unknown, Neena, PCP - General 10/29/22 12/04/22 Zunilda Rojas PA [facility] [place] [address] jerald PCP - General Physician Vp Informatics 12/05/22 10/22/24 Ca Rosales NP [address] [place] [address] PCP - General Nurse Practitioner 10/23/24 Julian Cooper MD [address] [place] [address] [email or web address] Historical LMR Provider 07/28/17 2 Rola Lyons MD [address] [place] [address], [address] [place] [address] Historical LMR Provider 07/28/17 Abdon Schultz DO [address] [place] [address] Orthopedics & Sports Medicine, [facility] [place] [address] Historical LMR Provider 07/28/17 10/14/21 documented as of this encounter Additional Source Comments The information contained in this document represents components of the legal health record. It is not the complete legal health record.[facility]
--- OUTSIDE RECORDS SUMMARY | 2025-10-01 10:21 | XMS_ITS | Encounter Summary ---
Author Organization [facility] Address [address] [place] [address] Phone Care Team Providers Care Bread Panner Name Role Phone Julian Cooper MD Unavailable [phone] Rola Lyons MD Unavailable [phone] Abdon Schultz DO Unavailable [phone] Julian Cooper MD Primary Care Provider [phone] Destiny Gonzalez MD Primary Care Provid er Unknown, Unknown Primary Care Provider Zunilda Means Primary Care Prov ider Ca Rosales NP Primary Care Provider Encounter Details Date Type Department Care Team (Late st Contact Info) Description 11/29/2020 Procedure Pass [facility] - [address] [place] [address] Social History Tobacco Use Types Packs/Day Years [...] Description 10/15/2025 4:30 PM EST Office Visit [facility] Rheumatology Clinic [address] [place] [address] Rola Lyons MD 22 [facility], [address] [place] [address] [email or web address] documented as of this encounter Visit Diagnoses Not on filedocumented in this encounter Care Teams Bread Panner Relationship Specialty Start Date End Date Julian Cooper MD [address] [place] [address] [email or web address] PCP - General Family Medicine 11/29/20 05/07/22 Destiny Gonzalez MD 22 [facility] [place] [address] [place] [address] [email or web address] PCP - General Family Medicine 05/08/22 08/09/22 Unknown, Unknown, PCP - General 10/29/22 12/04/22 Zunilda Rojas PA [address] [place] [address] jerald PCP - General Physician Logistics Administrator 12/05/22 10/22/24 Ca Rosales NP [address] [place] [address] PCP - General Nurse Practitioner 10/23/24 Julian Cooper MD [address] [place] [address] [email or web address] Historical LMR Provider 07/28/17 2 Rola Lyons MD [address] [place] [address], [address] [place] [address] Historical LMR Provider 07/28/17 Abdon Schultz DO [address] [place] [address] Orthopedics & Sports Medicine, [facility] [place] [address] Historical LMR Provider 07/28/17 10/14/21 documented as of this encounter Additional Source Comments The information contained in this document represents components of the legal health record. It is not the complete legal health record.[facility]
--- OUTSIDE RECORDS SUMMARY | 2025-10-01 10:21 | XMS_ITS | Encounter Summary ---
Author Organization [facility] Address [address] [place] [address] Phone Care Team Providers Care Battery Tester Name Role Phone Julian Cooper MD Unavailable [phone] Rola Lyons MD Unavailable [phone] Abdon Schultz DO Unavailable [phone] Julian Cooper MD Primary Care Provider [phone] Destiny Gonzalez MD Primary Care Provid er Unknown, Unknown Primary Care Provider Zunilda Means Primary Care Prov ider Ca Rosales NP Primary Care Provider [phone] Encounter Details Date Type Department Care Team (Late st Contact Info) Description 11/29/2020 Ancillary Orders [facility],Outside Imaging [address] [place], [place] [id number] System, Provider Not In, [facility] [address] [address] Social History Tobacco Use Types Packs/Day Years [...] Description 10/15/2025 4:30 PM EST Office Visit [facility] Rheumatology Clinic [address] [place] [address] Rola Lyons MD [address] [place] [address], [address] [place] [address] [email or web address] documented as of this encounter Results [...] on filedocumented in this encounter Care Teams Battery Tester Relationship Specialty Start Date End Date Julian Cooper MD [address] [place] [address] [email or web address] PCP - General Family Medicine 11/29/20 05/07/22 Destiny Gonzalez MD [address] [place] [address] [email or web address] PCP - General Family Medicine 05/08/22 08/09/22 Unknown, Neena, PCP - General 10/29/22 12/04/22 Zunilda Rojas PA [address] [place] [address] jerald PCP - General Physician Range Aid 12/05/22 10/22/24 Ca Rosales NP [address] [place] [address] PCP - General Nurse Practitioner 10/23/24 Julian Cooper MD [address] [place] [address] [email or web address] Historical LMR Provider 07/28/17 2 Rola Lyons MD [address] [place] [address] [address] [place] [address] Historical LMR Provider 07/28/17 Abdon Schultz DO [address] [place] [address] Orthopedics & Sports Medicine, [facility] [place] [address] Historical LMR Provider 07/28/17 10/14/21 documented as of this encounter Additional Source Comments The information contained in this document represents components of the legal health record. It is not the complete legal health record.[facility]
--- OUTSIDE RECORDS SUMMARY | 2025-10-01 10:21 | XMS_ITS | Encounter Summary ---
Author Organization [email or web address] [facility] Address [address] [place] [address] Phone Care Team Providers Care Injection Molding Machine Offbearer Name Role Phone Rola Lyons MD Unavailable [phone] Zunilda Rojas Primary Care Prov ider Ca Rosales NP Primary Care Provider [phone] Encounter Details Date Type Department Care Team (Late st Contact Info) Description 07/18/2023 Ancillary Orders [address] [id number] Milagros Yuen MD [address] [place] [address] Orthopedics & Sports Medicine, [place], [place] [id number] [email or web address] Left hip pain [...] high school, GED, job training, learning the Slovenian language, technical skills, or developing parenting skills)? [...] EST Office Visit [facility] Rheumatology Clinic [address] [place] [address] Rola Lyons MD [address] [place] [address], [address] [place] [address] [email or web address] Pending Results Name Type Priority Associated Diagnoses [...] documented as of this encounter Care Teams Injection Molding Machine Offbearer Relationship Specialty Start Date End Date Zunilda Rojas PA [address] [place] [address] jerald PCP - General Physician Mortgage Field Inspector 12/05/22 10/22/24 Ca Rosales NP [address] [place] [address] PCP - General Nurse Practitioner 10/23/24 Rola Lyons MD [address] [place] [address], [address] [address] Historical LMR Provider 07/28/17 documented as of this encounter Additional Source Comments The information contained in this document represents components of the legal health record. It is not the complete legal health record.[facility]
--- OUTSIDE RECORDS SUMMARY | 2025-10-01 10:21 | XMS_ITS | Clinical Summary ---
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 8 Active butalbital-acetami nophen-caffeine (FIORICET, ESGIC) 50-325-40 mg per tablet Take 1 tablet by mouth every 6 (six) hours as needed. 2 9 Active diclofenac sodium (VOLTAREN) 75 MG EC tablet Take 75 mg by mouth 2 (two) times a day as needed. 5 Active TRULANCE 3 mg tablet Take 1 tablet by mouth every morning. 5 Active lidocaine 5 % ointment Apply topically as needed. 35.44 g 5 Active albuterol 90 mcg/actuation inhaler Inhale 2 puffs into the lungs every 4 (four) hours as needed. 5 Active ASCORBIC ACID WITH DAT HIPS 500 MG tablet Take 1 tablet by mouth every morning. 5 Active cyclobenzaprine (FLEXERIL) 10 MG tablet Take 10 mg by mouth 2 (two) times a day as needed. 5 Active hydrOXYzine (ATARAX) 25 MG tablet Take 25 mg by mouth nightly at bedtime as needed. Active loratadine (CLARITIN) 10 mg tablet Take 1 tablet by mouth every morning. Active triamcinolone acetonide 0.1 % cream Apply topically 2 (two) times a day. Active hydroxychloroquine (PLAQUENIL) 200 mg tabletIndications: Inflammatory polyarthritis Take 1 tablet (200 mg total) by mouth daily. 90 tablet 3 5 05/07/20 26 Active esomeprazole (NEXIUM) 20 MG capsule Take 1 capsule by mouth once daily for 30 days 100 capsule 5 10/28/19 Active Active Problems Problem Noted Date Diagnosed Date [...] regular warm pool exercising such as at [employer] [facility] in [place], [place]. Vitamin D insufficiency 05/28/2022 Assessment & [...] prescribed. Daily sun protection. Follow closely with industrial boilermaker as scheduled at least every 12 months. Assessment & Plan (01/08/2024 12:18 PM EDT): Take exactly as prescribed. Daily sun protection. Follow closely with industrial boilermaker as scheduled at least every 12 months. Assessment & Plan (12/20/2021 2:11 PM EDT): Take exactly as prescribed. Daily sun protection. Follow closely with industrial boilermaker as scheduled at least every 12 months. Assessment & Plan (12/29/2020 2:53 PM EDT): Take exactly as prescribed. Daily sun protection. Follow closely with industrial boilermaker as scheduled at least every 12 months. Assessment & Plan (12/16/2019 9:44 AM EDT): Take exactly as prescribed. Daily sun protection. Follow closely with industrial boilermaker as scheduled at least every 12 months. [...] from warm pool therapy such as at [facility] in [place], [place]. Assessment & Plan (04/17/2024 10:24 AM [...] from warm pool therapy such as at [facility] [place], [place]. Assessment & Plan (01/08/2024 12:18 PM [...] from warm pool therapy such as at [facility] in [place]. Assessment & Plan (05/15/2023 1:06 PM [...] from warm pool therapy such as at [facility] in [place]. Assessment & Plan (12/20/2021 2:09 PM [...] Encounters Date Type Department Care Team Description 09/30/2025 Refill [facility] [address] [place] [address] Aletha Harper PA-C Medication Refill 07/19/2025 Refill [facility] [address] [place] [address] Aletha Harper PA-C Medication Refill from Last 3 Months Immunizations Immunization Administration Dates Next Due COVID-19 (Pre-07/29) Pfizer Vaccine, mRNA, PF 01/09/2021 INFLUENZA, SPLIT VIRUS, TRIVALENT PF 06/12/2016 INFLUENZA, SPLIT VIRUS, TRIV ALENT W/ PRESERVATIVE IM 06/02/2012,05/31/2011 Influenza Quadrivalent Prese rvative Free IM 07/02/2020,07/03/2019 Influenza Quadrivalent w/ Preservative IM 07/22/2020 Influenza, Unspecified Formulation 08/09/2008,,07/09/2003 Novel [id number], Injectable 10/20/2009 Td, unspecified formulation 06/09/2004 Tdap [...] housing situation today? I have ricki mendoza 10/22/2024 How many times have you move [...] Description 10/15/2025 4:30 PM EST Office Visit [facility] Rheumatology Clinic [address] [place] [address] Rola Lyons MD [address] [facility], [address] [place] [address] [email or web address] Health Maintenance Due Date Last Done Comments HIV ONE-TIME SCREENING (18-65 YEARS) 1979 PAP SMEAR 1982 COLOGUARD 2006 FIT TEST 2006 FOBT 2006 VIRTUAL COLONOSCOPY 2006 DEPRESSION SCREENING 05/08/2023 05/08/2022 TSH LEVEL 05/16/2023 05/16/2022 MAMMOGRAM 04/17/2024 04/17/2022, 11/07, 05/29/2019, Additional history exists INFLUENZA VACCINE (#1) 2025 , 09/20/2023, 07/09/2022, Additional history exists COVID-19 VACCINE ( season) 2025 07/17/2024, 09/20/2021, 01/31/2021, Additional history exists LIPID PANEL 05/16/2027 05/16/2022 SCREENING FOR DIABETES 05/12/2028 05/12/2025 SIGMOIDOSCOPY 10/23/2029 10/23/2024 COLONOSCOPY 02/13/2032 02/12/2022, 02/26/2018 COLORECTAL CANCER SCREENING 02/13/2032 Adult Td,Tdap Booster 07/09/2032 07/09/2022 , 06/18/2012, 06/09/2004 RSV VACCINE (1 - 1-dose 75+ series) 2036 ZOSTER VACCINES Completed 10/19/2019, 06/2020, 07/30/2019, Additional history exists HEPATITIS C SCREENING Completed 05/16/2022 PNEUMOCOCCAL VACCINES (50+ years) Completed 07/17/2024, 09/18/2016 [...] this topic Medical Devices Implanted Type Area Box Spinner Device Identifier Shelf Expiration Date Model / Serial / Lot Right Shoulder Neck Fusion [place] Suture 4.5mm Arthroscopy Reelx Stt Peek Ss Core Knotless Shapr Tip Expandable Bx/5ea - [id number] Implanted:Qty: 3 on 04/04/2023 by Abdon Schultz DO at [facility] Left: Shoulder SYBIL ENDOSCOPY 12/24/2024 [id number] / / [id number] [place] Suture 4.75mm Healicoil Rsb Ultratape Blue Ultrabraid - [id number] Implanted:Qty: 1 on 04/04/2023 by Abdon Schultz DO at [facility] Left: Shoulder QUINN 07/30/2023 [id number] / / [id number] Procedures Procedure Name Priority Date/Time Associated Diagnosis Comments ENDOSCOPY, SIGMOID 10/23/2024 1: 38 PM EST [...] Recently Relevant to Health Maintenance Results * ENDOSCOPY, SIGMOID (10/23/2024 1:38 PM EST) Narrative Transcriptions Josette Dumont MD - 10/23/2024 1:38 PM EST [facility] Patient Name: Paula Cordova Attending MD:: JOSETTE DUMONT MD, Procedure Date: 10/23/2024 1:38 PM Date of : 1960 Age: 64 Admit Type: Outpatient Gender: Female Room: [place] [address] Referring MD: Ca Rosales Exam Type: Flexible [...] 1:38 PM Procedure Code(s): --- Professional --- 15164, Hemorrhoidectomy, internal, by rubber band ligation(s) --- Technical --- 82593, Hemorrhoidectomy, internal, by rubber band ligation(s) CPT copyright 2021 [employer]. All rights reserved. The codes documented in this report are preliminary and upon system administration manager reviewmay be revised to meet current compliance requirements. Procedure Date: 10/23/2024 1:38:[address] [place] [address] [id number] Ca Rosales NP GI PROCEDURE ORDERABLES F inal Result * TSH with reflex (05/16/2022 11:15 AM EDT) TSH 0.66 0.27 - 4.20 uIU/mL [facility] Blood 05/16/2022 11:1 5 AM EDT 05/16/2022 11:18 AM EDT Destiny Gonzalez MD LAB BLOOD BKR ORDERA BLES Final Result Performing Organization Address City/[facility]/ZIP Co de Phone Number [address] [address] * Hepatitis C antibody, qualitative (05/16/2022 11:15 AM EDT) HCV NON-REACTIV E NON-REACTI VE [facility] Blood 05/16/2022 11:1 5 AM EDT 05/16/2022 11:18 AM EDT us Destiny Gonzalez MD LAB BLOOD BKR ORDERA BLES Final Result Performing Organization Address [facility] Co de Phone Number [address] [address] * (ABNORMAL) Lipid panel (05/16/2022 11:15 AM EDT) HDL 56 mg/dL [facility] Comment: Interpretation <40 mg/dL: Low HDL cholesterol (major risk factor for CHD) Greater than or equal to 60 mg/dL: High HDL cholesterol ( negative risk factor for CHD) HDL - cholesterol is affected by a number of factors, e.g. smoking, excerise, hormones, sex and age. CHOLESTEROL 226 0 - 240 mg/dL [facility] TRIGLYCERIDES 99 30 - 160 mg/dL [facility] LDL 150(H) 50 - 129 mg/dL [facility] Comment: LDL levels in terms of risk for coronary heart disease: <100 mg/dL: Optimal 100-129 mg/dL: Near or above optimal 130-159 mg/dL: Borderline high 160-189 mg/dL: High >190 mg/dL: Very High CARDIAC RISK RATIO 4.0 3.3 - 4.4 [facility] Blood 05/16/2022 11:1 5 AM EDT 05/16/2022 11:18 AM EDT us Destiny Gonzalez MD LAB BLOOD BKR ORDERA BLES Final Result Performing Organization Address City/[facility]/ZIP Co de Phone Number [address] [address] * HM MAMMOGRAPHY FOR RESULT ENTRY ONLY (04/17/2022) us Historical Provider HEALTH MAINTENANCE Edited Result - Final * ENDOSCOPY, COLON (02/12/2022 2:57 PM EDT) Narrative Transcriptions Anastacio Dawn MD - 02/12/2022 2:57 PM EDT Patient Name: Paula Cordova Attending MD:: ANASTACIO DAWN MD Procedure Date: 02/12/2022 2:57 PM Date of : 1960 Age: 61 Admit Type: Outpatient Gender: Female Room: [place] [address] Referring MD: ANASTACIO VERA MD Exam Type: [...] 2:57 PM Procedure Code(s): --- Professional --- 07394, Colonoscopy, flexible; diagnostic, including collection of specimen(s) by brushing or washing, when performed (separateprocedure) --- Technical --- 04596, Colonoscopy, flexible; diagnostic, including collection of specimen(s) by brushing or washing, when performed (separateprocedure) Diagnosis Code(s): --- Professional --- K64.9, Unspecified hemorrhoids R10.31, Right lower quadrant pain --- Technical --- K64.9, Unspecified hemorrhoids R10.31, Right lower quadrant pain CPT copyright 2020 [employer]. All rights reserved. The codes documented in this report are preliminary and upon system administration manager reviewmay be revised to meet current compliance requirements. Procedure Date: 02/12/2022 2:57:[address] [place] [address] [id number] Anastacio Vera MD GI PROCEDURE ORDERABLES Final R esult from Last 3 Months or Most Recently Relevant to Health Maintenance Insurance MEDICARE PART A & B [facility] MEDICARE REPLACEMENT MEDICARE PART A & B [facility] MEDICARE REPLACEMENT MEDICARE PART A & B [place] [facility] MEDICARE REPLACEMENT MEDICARE PART A & B [facility] MEDICARE REPLACEMENT MEDICARE PART A & B [place] [facility] MEDICARE REPLACEMENT [address] [place] [id number] MEDICARE PART A & B [facility] MEDICARE REPLACEMENT [address] [place] [phone] MEDICARE PART A & B Member Subscriber Plan / Payer (Ef fective 2014-Present) Name:Paula Cordova Member ID:[id number] Relation to Subscriber:Self Name:Art Paula Subscriber ID:[id number] Payer ID:[id number] Group ID:Not on file Type:Medicare Address: [facility] Trading Block [facility] [employer] [facility] [address] [facility] [phone] [facility] MEDICARE REPLACEMENT MEDICARE PART A & B [facility] MEDICARE REPLACEMENT MEDICARE PART A & B [facility] MEDIC[facility] REPLACEMENT Advance Directives For more information, please contact: [phone] (9AM - 5PM [facility], Saturday-Saturday) Documents on File Type Date Recorded Patient Reservations Agent Expl anation Healthcare Proxy 10/27/2024 4:15 PM [...] Agent (Proxy form on file) Care Teams Software Lead Relationship Specialty Start Date End Date Ca Rosales, [facility] [address] [place] [id number] PCP - General Nurse Practitioner 10/23/24 Rola Lyons MD [address] [place] [address], [facility] [address] [place] [address] [email or web address] Historical LMR Provider 07/28/17 Additional Source Comments The information contained in this document represents components of the legal health record. It is not the complete legal health record.[facility]
--- OUTSIDE RECORDS SUMMARY | 2025-10-01 10:21 | XMS_ITS | Encounter Summary ---
Author Organization [employer] [facility] Address [address] [place] [address] Phone Care Team Providers Care Tube Former Operator Name Role Phone Rola Lyons MD Unavailable [phone] Ca Rosales NP Primary Care Provider [phone] Encounter Details Date Type Department Care Team (Late st Contact Info) Description 10/23/2024 Procedure Pass [facility] Endoscopy Admitting Dept Virtual Department [address] [place] [address] Social History Tobacco Use Types Packs/Day Years [...] Description 10/15/2025 4:30 PM EST Office Visit [facility] [place] [address] Rola Lyons MD [address] [place] [address] [email or web address] documented as of this encounter Visit Diagnoses Not on filedocumented in this encounter Additional Health Concerns Assessment Noted Time PHQ-2 Depression Total Score: 0 05/08/20 22 8:17 AM EDT documented as of this encounter Care Teams Tube Former Operator Relationship Specialty Start Date End Date Ca Rosales NP [address] [place] [id number] PCP - General Nurse Practitioner 10/23/24 Rola Lyons MD [address] [place] [address] [email or web address] Historical LMR Provider 07/28/17 documented as of this encounter Additional Source Comments The information contained in this document represents components of the legal health record. It is not the complete legal health record.[facility]
--- OUTSIDE RECORDS SUMMARY | 2025-10-01 10:21 | XMS_ITS | Encounter Summary ---
Author Organization [facility] Address [address] [place] [address] Phone Care Team Providers Care Energy Trading Analyst Name Role Phone Rola Lyons MD Unavailable Zunilda Rojas Primary Care Prov ider Ca Rosales NP Primary Care Provider [phone] Encounter Details Date Type Department Care Team (Late st Contact Info) Description 07/18/[address] [facility]ics [facility] [address] [place] [address] [id number] Milagros Yuen MD [address] [place] [address] Orthopedics & Sports Medicine, [facility] [place] [address] Social History Tobacco Use Types [...] high school, GED, job training, learning the Polish language, technical skills, or developing parenting skills)? [...] Description 10/15/2025 4:30 PM EST Office Visit [facility] Rheumatology Clinic [address] [place] [address] Rola Lyons MD [address] [place] [address], [address] [place] [address] [email or web address] documented as of this encounter Visit Diagnoses Not on filedocumented in this encounter Additional Health Concerns Assessment Noted Time PHQ-2 Depression Total Score: 0 05/08/20 8:17 AM EDT documented as of this encounter Care Teams Energy Trading Analyst Relationship Specialty Start Date End Date Zunilda Rojas PA [address] [place] [address] jerald PCP - General Physician Sole Buffer 12/05/22 10/22/24 Ca Rosales NP [address] [place] [address] PCP - General Nurse Practitioner 10/23/24 Rola Lyons MD [address] [place] [address], [address] [address] [email or web address] Historical LMR Provider 07/28/17 documented as of this encounter Additional Source Comments The information contained in this document represents components of the legal health record. It is not the complete legal health record.[facility]
--- OUTSIDE RECORDS SUMMARY | 2025-10-01 10:21 | XMS_ITS | Encounter Summary ---
Author Organization [facility] Address [address] [place] [address] Phone Care Team Providers Care Income Auditor Name Role Phone Rola Lyons MD Unavailable [phone] Julian Cooper MD Primary Care Provider [phone] Destiny Gonzalez MD Primary Care Provid er Unknown, Unknown Primary Care Provider Zunilda Means Primary Care Prov ider Ca Rosales NP Primary Care Provider [phone] Encounter Details Date Type Department Care Team (Late st Contact Info) Description 02/12/2022 Procedure Pass [facility] Endoscopy Admitting Dept Virtual Department [address] [place], [place] [id number] Social History Tobacco Use Types Packs/Day Years [...] Description 10/15/2025 4:30 PM EST Office Visit [facility] Rheumatology Clinic [address] [place] [address] Rola Lyons MD 22 [facility], [address] [place] [address] [email or web address] documented as of this encounter Visit Diagnoses Not on filedocumented in this encounter Care Teams Income Auditor Relationship Specialty Start Date End Date Julian Cooper MD [address] [place] [address] [email or web address] PCP - General Family Medicine 11/29/20 05/07/22 Destiny Gonzalez MD 22 [facility] [address] [place] [address] [email or web address] PCP - General Family Medicine 05/08/22 08/09/22 Unknown, Unknown, PCP - General 10/29/22 12/04/22 Zunilda Rojas PA [address] [place] [address] jerald PCP - General Physician Fibre Optic Cable Splicer 12/05/22 10/22/24 Ca Rosales NP [address] [place] [address] PCP - General Nurse Practitioner 10/23/24 Rola Lyons MD [address] [place] [address], [facility] [address] [place] [address] [email or web address] Historical LMR Provider 07/28/17 documented as of this encounter Additional Source Comments The information contained in this document represents components of the legal health record. It is not the complete legal health record.[facility]
--- OUTSIDE RECORDS SUMMARY | 2025-10-01 10:21 | XMS_ITS | Encounter Summary ---
Author Organization [facility] Address [address] [place] [address] Phone Care Team Providers Care Senior Mainframe Programmer Analyst Name Role Phone Julian Cooper MD Unavailable [phone] Rola Lyons MD Unavailable [phone] Abdon Schultz DO Unavailable [phone] Julian Cooper MD Primary Care Provider [phone] Destiny Gonzalez MD Primary Care Provid er Unknown, Unknown Primary Care Provider Zunilda Means Primary Care Prov ider Ca Rosales NP Primary Care Provider [phone] Encounter Details Date Type Department Care Team (Late st Contact Info) Description 11/29/2020 Ancillary Orders [facility] at [address] [address] Zunilda Rojas PA [address] [place] [address] [email or web address] Bilateral breast lump Social History Tobacco [...] Description 10/15/2025 4:30 PM EST Office Visit [facility] Rheumatology Clinic [address] [place] [address] Rola Lyons MD [address] [place] [address], [address] [place] [address] [email or web address] documented as of this encounter [...] lump documented in this encounter Care Teams Senior Mainframe Programmer Analyst Relationship Specialty Start Date End Date Julian Cooper MD [address] [place] [address] [email or web address] PCP - General Family Medicine 11/29/20 05/07/22 Destiny Gonzalez MD [address] [place] [address] [email or web address] PCP - General Family Medicine 05/08/22 08/09/22 Unknown, Neena, PCP - General 10/29/22 12/04/22 Zunilda Rojas PA [facility] [place] [address] jerald PCP - General Physician Warehouse Sorter 12/05/22 10/22/24 Ca Rosales NP [address] [place] [address] PCP - General Nurse Practitioner 10/23/24 Julian Cooper MD [address] [place] [address] [email or web address] Historical LMR Provider 07/28/17 2 Rola Lyons MD [address] [place] [address] [address] [place] [address] Historical LMR Provider 07/28/17 Abdon Schultz DO [address] [place] [address] Orthopedics & Sports Medicine, [place] [address] Historical LMR Provider 07/28/17 10/14/21 documented as of this encounter Additional Source Comments The information contained in this document represents components of the legal health record. It is not the complete legal health record.[facility]
--- OUTSIDE RECORDS SUMMARY | 2025-10-01 10:21 | XMS_ITS | Encounter Summary ---
Author Organization [facility] Address [address] [place] [address] Phone Care Team Providers Care Shell Trim Operator Name Role Phone Julian Cooper MD Primary Care Provider [phone] Julian Cooper MD Unavailable [phone] Rola Lyons MD Unavailable Abdon Schultz DO Unavailable [phone] Julian Cooper MD Primary Care Provider [phone] Destiny Gonzalez MD Primary Care Provid er Unknown, Unknown Primary Care Provider Zunilda Means Primary Care Prov ider Ca Rosales NP Primary Care Provider [phone] Encounter Details Date Type Department Care Team (Late st Contact Info) Description 01/09/2019 Procedure Pass [facility], [facility] [place] [facility] - [address] [address] Social History Tobacco Use Types Packs/Day Years [...] Description 10/15/2025 4:30 PM EST Office Visit [facility] Rheumatology Clinic [address] [place] [address] Rola Lyons MD 22 [facility], [address] [place] [address] [email or web address] documented as of this encounter Visit Diagnoses Not on filedocumented in this encounter Care Teams Shell Trim Operator Relationship Specialty Start Date End Date Julian Cooper MD [address] [place] [address] [email or web address] PCP - General 07/25/17 11/28/20 Julian Cooper MD [address] [place] [address] [email or web address] PCP - General Family Medicine 11/29/20 05/07/22 Destiny Gonzalez MD [address] [address] [email or web address] PCP - General Family Medicine 05/08/22 08/09/22 Unknown, MD Neena PCP - General 10/29/22 12/04/22 Zunilda Rojas PA [address] [place] [address] jerald PCP - General Physician Assistant Manager/Embalmer 12/05/22 10/22/24 Ca Rosales NP [address] [place] [address] PCP - General Nurse Practitioner 10/23/24 Julian Cooper MD [address] [place] [address] [email or web address] Historical LMR Provider 07/28/17 2 Rola Lyons MD [address] [place] [address], [facility] [address] [place] [address] Historical LMR Provider 07/28/17 Abdon Schultz DO 4 [facility] Orthopedics & Sports Medicine, [facility] [place] [address] Historical LMR Provider 07/28/17 10/14/21 documented as of this encounter Additional Source Comments The information contained in this document represents components of the legal health record. It is not the complete legal health record.[facility]
--- OUTSIDE RECORDS SUMMARY | 2025-10-01 10:21 | XMS_ITS | Encounter Summary ---
Author Organization [facility] Address [address] [place] [address] Phone Care Team Providers Care Top Coater Name Role Phone Rola Lyons MD Unavailable [phone] Ca Rosales NP Primary Care Provider [phone] Reason for Visit * Reason Comments Medication Refill Encounter Details Date Type Department Care Team (Late st Contact Info) Description 07/19/2025 Refill [facility] [address] [place] [address] Aletha Harper PA-C [address] [address] [email or web address] Medication Refill Social History Tobacco Use Types [...] Description 10/15/2025 4:30 PM EST Office Visit [facility] [place] [address] Rola Lyons MD [address] [place] [address] [email or web address] documented as of this encounter Visit Diagnoses Not on filedocumented in this encounter Additional Health Concerns Assessment Noted Time PHQ-2 Depression Total Score: 0 05/08/20 8:17 AM EDT documented as of this encounter Care Teams Top Coater Relationship Specialty Start Date End Date Ca Rosales NP [address] [place] [address] PCP - General Nurse Practitioner 10/23/24 Rola Lyons MD [address] [place] [address] [email or web address] Historical LMR Provider 07/28/17 documented as of this encounter Additional Source Comments The information contained in this document represents components of the legal health record. It is not the complete legal health record.[facility]
--- OUTSIDE RECORDS SUMMARY | 2025-10-01 10:22 | XMS_ITS | Encounter Summary ---
Author Organization [facility] Address [address] [place] [address] Phone Care Team Providers Care Medical Operations Supervisor Name Role Phone Julian Cooper MD Primary Care Provider [phone] Julian Cooper MD Unavailable [phone] Rola Lyons MD Unavailable Abdon Schultz DO Unavailable [phone] Julian Cooper MD Primary Care Provider [phone] Destiny Gonzalez MD Primary Care Provid er Unknown, Unknown Primary Care Provider Zunilda Means Primary Care Prov ider Ca Rosales NP Primary Care Provider [phone] Encounter Details Date Type Department Care Team (Late st Contact Info) Description 07/08/2019 Procedure Pass OR Admitting Dept - Virtual Department [address] [place] [address] Social History Tobacco Use Types Packs/Day Years [...] Upcoming Encounters Date Type Department Care Team ([facility] st Contact Info) Description 10/15/2025 4:30 PM EST Office Visit [facility] [address] [place] [address] Rola Lyons MD 22 [facility], [address] [place] [address] [email or web address] documented as of this encounter Visit Diagnoses Not on filedocumented in this encounter Care Teams Medical Operations Supervisor Relationship Specialty Start Date End Date Julian Cooper MD [address] [place] [address] [email or web address] PCP - General 07/25/17 11/28/20 Julian Cooper MD [address] [place] [address] [email or web address] PCP - General Family Medicine 11/29/20 05/07/22 Destiny Gonzalez MD 22 [facility] Francis [address] [place] [address] [email or web address] PCP - General Family Medicine 05/08/22 08/09/22 Unknown, MD Neena PCP - General 10/29/22 12/04/22 Zunilda Rojas PA [address] [place] [address] jerald PCP - General Physician Vp Care Management 12/05/22 10/22/24 Ca Rosales NP [address] [place] [address] PCP - General Nurse Practitioner 10/23/24 Julian Cooper MD [address] [place] [address] [email or web address] Historical LMR Provider 07/28/17 2 Rola Lyons MD [address] [place] [address], [facility] [address] [place] [address] Historical LMR Provider 07/28/17 Abdon Schultz DO [address] [place] [address] Orthopedics & Sports Medicine, [facility] [place] [address] Historical LMR Provider 07/28/17 10/14/21 documented as of this encounter Additional Source Comments The information contained in this document represents components of the legal health record. It is not the complete legal health record.[facility]
--- OUTSIDE RECORDS SUMMARY | 2025-10-01 10:22 | XMS_ITS | Encounter Summary ---
Author Organization [facility] Address [address] [place] [address] Phone Care Team Providers Care Tester Compressed Gases Name Role Phone Julian Cooper MD Primary Care Provider [phone] Julian Cooper MD Unavailable [phone] Rola Lyons MD Unavailable [phone] Abdon Schultz DO Unavailable [phone] Julian Cooper MD Primary Care Provider [phone] Destiny Gonzalez MD Primary Care Provid er Unknown, Unknown Primary Care Provider Zunilda Means Primary Care Prov ider Ca Rosales NP Primary Care Provider [phone] Reason for Referral * Physical Therapy (Routine) - Closed Specialty Diagnoses / Procedures Referred By Contac t Referred To Contact Physical Therapy Diagnoses Encounter for rehabilitation Zunilda Rojas PA Phone: tel: fax: mailto:[facility] [address] [place] [address] Phone: tel: Referral ID Status Reason Start Date Expiration Date Visits Re quested Visits Authorized [id number] Closed 09/09/2019 09/09/2020 99 [phone] Encounter Details Date Type Department Care Team (Late Contact Info) Description 09/09/2019 Transcribe Orders [facility] [address] [place] [address] Zunilda Rojas PA [address] [place] [address] [email or web address] Encounter for rehabilitation (Primary Dx) [...] Office Visit [facility] [address] [place] [address] Rola Lyons MD 22 [facility], [address] [place] [address] [email or web address] documented as of this encounter Procedures Procedure Name Priority Date/Time Associated Diagnosis Comments AMB REFERRAL TO [facility] PHYSICAL THERAPY Routine 10/02/2019 2:41 PM EST Encounter for rehabilitation documented in this encounter Results * Ambulatory referral to [facility] Physical Therapy (10/02/2019 2:41 PM EST) Result [facility] Zunilda RAVI AMB [facility] REFERRALS Final Result documented in this encounter Visit Diagnoses Diagnosis Encounter for rehabilitation- Primary documented in this encounter Care Teams Tester Compressed Gases Relationship Specialty Start Date End Date Julian Cooper MD [address] [place] [address] [email or web address] PCP - General 07/25/17 11/28/20 Julian Cooper MD [address] [place] [address] [email or web address] PCP - General Family Medicine 11/29/20 05/07/22 Destiny Gonzalez MD [address] [place] [address] [email or web address] PCP - General Family Medicine 05/08/22 08/09/22 Unknown, Neena, PCP - General 10/29/22 12/04/22 Zunilda Roajs PA [address] [place] [address] jerald PCP - General Physician Facility Practice Specialist 12/05/22 10/22/24 Ca Rosales NP [address] [place] [address] PCP - General Nurse Practitioner 10/23/24 Julian Cooper MD [address] [place] [address] [email or web address] Historical LMR Provider 07/28/17 2 Rola Lyons MD 22 [facility], [address] [place] [address] Historical LMR Provider 07/28/17 Abdon Schultz DO [address] [place] [address] Orthopedics & Sports Medicine, [place] [address] [email or web address] Historical LMR Provider 07/28/17 10/14/21 documented as of this encounter Additional Source Comments The information contained in this document represents components of the legal health record. It is not the complete legal health record.[facility]
--- OUTSIDE RECORDS SUMMARY | 2025-10-01 10:22 | XMS_ITS | Encounter Summary ---
Author Organization [facility] Address [address] [place] [address] Phone Care Team Providers Care Crystal Inspector Name Role Phone Julian Cooper MD Primary Care Provider Julian Cooper MD Unavailable [phone] Rola Lyons MD Unavailable Abdon Schultz DO Unavailable [phone] Julian Cooper MD Primary Care Provider [phone] Destiny Gonzalez MD Primary Care Provid er Unknown, Unknown Primary Care Provider Zunilda Means Primary Care Prov ider Ca Rosales NP Primary Care Provider [phone] Encounter Details Date Type Department Care Team (Late st Contact Info) Description 06/25/2019 Prep for Surgery [facility] Orthopedics and Sports Medicine Clinic [address] [place] [address] Rola Vaca MD [address] [place] [address] Orthopedics & Sports Medicine, [facility] [place] [address] [email or web address] Social History Tobacco Use Types Packs/Day Years [...] Description 10/15/2025 4:30 PM EST Office Visit [facility] Rheumatology Clinic [address] [place] [address] Rola Lyons MD 22 [facility], [address] [place] [address] [email or web address] documented as of this encounter Visit Diagnoses Not on filedocumented in this encounter Care Teams Crystal Inspector Relationship Specialty Start Date End Date Julian Cooper MD [address] [place] [address] [email or web address] PCP - General 07/25/17 11/28/20 Julian Cooper MD [address] [place] [address] [email or web address] PCP - General Family Medicine 11/29/20 05/07/22 Destiny Gonzalez MD [address] [place] [address] [place] [address] [email or web address] PCP - General Family Medicine 05/08/22 08/09/22 Unknown, MD Neena PCP - General 10/29/22 12/04/22 Zunilda Rojas PA [address] [place] [address] jerald PCP - General Physician Cmm Technician 12/05/22 10/22/24 Ca Rosales, [facility] [address] [place] [address] PCP - General Nurse Practitioner 10/23/24 Julian Cooper MD [address] [place] [address] [email or web address] Historical LMR Provider 07/28/17 2 Rola Lyons MD 22 [facility], [facility] [address] [place] [address] [email or web address] Historical LMR Provider 07/28/17 Abdon Schultz DO [address] [place] [address] Orthopedics & Sports Medicine, [facility] [place] [address] Historical LMR Provider 07/28/17 10/14/21 documented as of this encounter Additional Source Comments The information contained in this document represents components of the legal health record. It is not the complete legal health record.[facility]
--- NOTE | 2025-10-01 10:25 | A.OFFVIS_ITS ---
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 Patient complains of numbness and tingling with associated sleep disturbance. Patient reports symptoms are daily and intermittent, making it difficult to paper cup machine tender, squeeze, and open and close lids. Denies finger locking. She has tried braces in the past with some relief. Denies any prior injuries or surgeries to the left hand. She also complains of right hand numbness and tingling. Reports history of Right Carpal Tunnel Release, ~2019, at an outside facility. IMPRESSION 06/04/25: 1. This is an abnormal study. 2. There is electrodiagnostic evidence for left moderate-severe median neuropathy at the wrist, consistent with carpal tunnel syndrome. 3. There is no electrodiagnostic evidence for ulnar neuropathy, brachial plexopathy, or cervical radiculopathy. 4. There is no evidence of right Carpal Tunnel Syndrome, status post CTR 2019. Allergies clarithromycin (From Biaxin) Allergy (Mild, Verified 10/01/25 10:27) Unknown morphine Allergy (Mild, Verified 10/01/25 10:27) Rash HPI HPI ASSISTANT TENNIS COACH- LT CTS: Details: Paula is a 65 year old right hand dominant male who presents today as a New Patient for evaluation of Left Hand Numbness & Tingling. Patient complains of numbness and tingling with associated sleep disturbance. Patient reports symptoms are daily and intermittent, making it difficult to paper cup machine tender, squeeze, and open and close lids. the patient does state that all digits are affected by numbness and tingling of the left hand, including the small finger.. Denies finger locking. She has tried braces in the past with some relief. Denies any prior injuries or surgeries to the left hand. She also complains of right hand numbness and tingling. Reports history of Right Carpal Tunnel Release, ~2019, at an outside facility. IMPRESSION 06/04/25: 1. This is an abnormal study. 2. There is electrodiagnostic evidence for left moderate-severe median neuropathy at the wrist, consistent with carpal tunnel syndrome. 3. There is no electrodiagnostic evidence for ulnar neuropathy, brachial plexopathy, or cervical radiculopathy. 4. There is no evidence of right Carpal Tunnel Syndrome, status post CTR 2019. REPLACED BY [facility] Medical History (Updated 07/28/25 @ 11:32 by Anel Abreu MD) Chronic migraine without aura Right hand pain Right hand weakness Left carpal tunnel syndrome Derangement of left shoulder joint Calcific tendinitis of shoulder Multilevel cervical spondylosis without myelopathy Rheumatoid arthritis Eczema Gastrointestinal hemorrhage GERD (gastroesophageal reflux disease) Mild persistent asthma Allergic rhinitis Migraine Insomnia Persistent insomnia Recurrent major depressive episodes Iron deficiency anemia Familial hypercholesteremia Hypothyroidism Surgical History History of cervical discectomy History of abdominoplasty History of carpal tunnel surgery H/O total hysterectomy Family History Sister Malignant tumor of breast Daughter Malignant lymphoma of thyroid gland H/O thyroidectomy Mother Rheumatoid arthritis HTN (hypertension) Father HTN (hypertension) Hyperlipidemia PAD (peripheral artery disease) Social History Household Members: Spouse Patient Tobacco Use Status: Never used Tobacco Physical Exam Vital Signs: BMI result Body Mass Index 29.8 Extrem Other: Neuro: Decreased sensation in the tips of all digits of the left hand in the office today No thenar or intrinsic wasting. Good APB muscle firing and good finger cross. Vascular: Capillary refill brisk. ROM: Patient can make a fist and extend all their digits. Skin: No lacerations or abrasions noted. General: No ecchymosis. No erythema or evidence of infection. Assessment & Plan Assessment & Plan (1) Left carpal tunnel syndrome: Code(s): G56.02 - Carpal tunnel syndrome, left upper limb Category: Medical (2) Hand numbness: Code(s): R20.0 - Anesthesia of skin Category: Medical Plan 1. Left carpal tunnel syndrome 2. Numbness and tingling in ulnar nerve distribution of the left hand Symptoms intermittent, daily, worse at night Patient is educated about this condition Patient is educated about the typical treatment and recovery course At this time, patient does appear to be experiencing ulnar neuropathy symptoms, despite negative EMG for ulnar neuropathy Patient is educated that surgical intervention is indicated for her left carpal tunnel syndrome, however I feel it is best for the patient to be assessed by Dr. Ortiz for symptoms of ulnar neuropathy, as she may require cubital tunnel release despite negative EMG Therefore, patient is referred to Dr. Ortiz for assessment and discussion of potential need for cubital tunnel release Patient understands this and is amenable to this plan Coding Level of Care Code New Pt Level 3 (72431) Diagnoses Left carpal tunnel syndrome G56.02 Hand numbness R20.0
[2025-10-01 10:26] VITALS: BMI 29.8
== END 2025-10-01 11:04 | disposition home or self-care (01) ==
LOC: HO.HOS 10:18
DX: G56.02 Carpal tunnel syndrome, left upper limb (principal); R20.0 Anesthesia of skin
CPT/HCPCS: 99203